=== PATIENT | male | born 1965 | race African-American/Black ===

== ENCOUNTER 2016-09-20 17:42 | Emergency (ER) | payer MEDICAID ==
[~2016-09-20] VITALS: Ht 167.6 cm; Wt 104.3 kg
[~2016-09-20 17:42] MED LIST: ALBU0.08 NEB; ALBU6.7H INH; AMLO5TAB2 PO; BLOOD GLUCOSE M1 KIT; BLOOD GLUCOSE T1 TES; CARV25TA PO; ENAL20TA PO; FURO40TA PO; HYDR-3583 PO; INFL1INJ54 IM; INFL1INJ56 IM; LANCETS1 MI1; LEVO25TA4 PO; METF1000 PO; NICO21DI2 T-DERMAL; NITR50VP SL; ORPH100T99 PO; PNEU25IN IM; PRAV80TA2 PO; PROZ20CA11 PO; SERO300T PO; SPIR25TA PO; SPIRCAP INH
[2016-09-20 17:46] VITALS: BP 140/91; PULSE 71; RESP 16; TEMP 97.8; O2SAT 98
[2016-09-20] MEDS ORDERED: CLINDAMYCIN 150 MG CAP PO ONE (18:00)
[2016-09-20] MEDS ORDERED: IBUPROFEN 800 MG TAB PO ONE (18:00)
--- NOTE | 2016-09-20 18:08 | PD ---
HPI Chief Complaint: Laceration/Skin Injury Time Seen by Provider: 18:02 Travel History International Travel<30 days: No Contact w/Intl Traveler<30days: No Traveled to known affect area: No History of Present Illness HPI 51-year-old male presents the emergency Department with laceration to the proximal right index finger from coffee cup last evening. Patient states he had no significant pain and full range of motion at the beginning, but over the last 24 hours he's had increasing pain and swelling at the proximal right index. Patient denies fever, chills, or other symptoms. Patient is up-to-date on his tetanus 2 years ago. He has normal sensation distal to the wound at this time. Patient now has decreased extension secondary to pain. He has no known drug allergies. PFSH Past Medical History Hx Anticoagulant Therapy: No Blood Disorders: No Bipolar Disorder: Yes Anxiety: Yes Depression: Yes Heart Rhythm Problems: No Cancer: No Cardiac Catheterization: Yes (X3) Cardiomyopathy: Yes Cardiovascular Problems: Yes (OK, HTN, CHOL) High Cholesterol: Yes Chest Pain: Yes Congestive Heart Failure: Yes COPD: Yes Coronary Artery Disease: Yes Diabetes: Yes Diminished Hearing: No Endocrine: No Gastrointestinal Disorders: No GERD: Yes Genitourinary: No Hypertension: Yes Immune Disorder: No Implanted Vascular Access Dvce: Yes (DEFIB) Musculoskeletal: No Neurologic: No Psychiatric: Yes (SCHIZOPHRENIA) Reproductive: No Respiratory: Yes (COPD) Immunizations Current: Yes Myocardial Infarction: Yes Schizophrenia: Yes Thyroid Disease: No Past Surgical History Abdominal Surgery: Yes (appendectomy) Appendectomy: Yes Body Medical Devices: cardiac stents Cardiac Surgery: Yes Coronary Artery Bypass Graft: Yes (3 stents) Coronary Stent: Yes (3 STENTS) Ear Surgery: No Endocrine Surgery: No Eye Surgery: No Genitourinary Surgery: No Gynecologic Surgery: No Neurologic Surgery: No Oral Surgery: No Thoracic Surgery: No Other Surgery: Yes (see hx) Social History Alcohol Use: Yes (SOCIAL) Tobacco Use: Yes Substance Use: Yes (cocaine) Allergies-Medications (Allergen,Severity, Reaction): Coded Allergies: No Known Allergies (Verified , 09/20/16) Reported Meds & Prescriptions Reported Meds & Active Scripts Active Ibuprofen 800 Mg Tab 800 Mg PO Q8H PRN Clindamycin (Clindamycin HCl) 150 Mg Cap 300 Mg PO Q6H 7 Days Metformin (Metformin HCl) 1,000 Mg Tab 1,000 Mg PO BIDPC With meals Amlodipine (Amlodipine Besylate) 5 Mg Tab 5 Mg PO DAILY Hydrocodone-Acetaminophen 10-325 mg Tab 1 Tab PO Q6H PRN Pravastatin 80 Mg Tab 80 Mg PO DAILY Lancets 1 Mis Mis 1 Ea .ROUTE DIRECTED Blood Glucose Monitoring W/Device (Device) 1 Kit Kit 1 Kit .ROUTE DIRECTED Brand, as per patient's insurance. Fluarix Quadrivalent Inj (Influenza Virus Vaccine Quadrivalent Inj) 0.5 Ml Syr 0.5 Ml IM .ONCE Blood Glucose Test Strips 1 Yvette Yvette 1 Ea .ROUTE DIRECTED Spiriva Handihaler (Tiotropium Inh) 18 Mcg Cap 18 Mcg INH DAILY 1 capsule = 18 mcg Reported Orphenadrine CR (Orphenadrine Citrate) 100 Mg Tab 100 Mg PO BID Levothyroxine (Levothyroxine Sodium) 25 Mcg Tab 25 Mcg PO DAILY Prozac (Fluoxetine HCl) 20 Mg Cap 20 Mg PO DAILY Enalapril (Enalapril Maleate) 20 Mg Tab 20 Mg PO DAILY Carvedilol 25 Mg Tab 25 Mg PO BID Spironolactone 25 Mg Tab 25 Mg PO DAILY Seroquel (Quetiapine Fumarate) 300 Mg Tab 300 Mg PO HS Nitroglycerin 5 Mg/Ml Inj 0.4 Mg SL DIRECTED Nicotine Patch (Nicotine) 21 Mg/24 Hr Patch 21 Mg T-DERMAL DAILY Furosemide 40 Mg Tab 40 Mg PO BID Proventil Hfa 6.7 GM Inh (Albuterol Sulfate) 90 Mcg/Act Aer 1 Puff INH Q4H PRN Albuterol Neb (Albuterol Sulfate) 2.5 Mg/3 Ml Neb 2.5 Mg NEB QID NEB Review of Systems Except as stated in HPI: all other systems reviewed are Neg General / Constitutional: No: Fever Eyes: No: Visual changes HENT: No: Headaches Cardiovascular: No: Chest Pain or Discomfort Respiratory: No: Shortness of Breath Gastrointestinal: No: Abdominal Pain Genitourinary: No: Dysuria Musculoskeletal: No: Pain Skin: No Rash Neurologic: No: Weakness Psychiatric: No: Depression Endocrine: No: Polydipsia Hematologic/Lymphatic: No: Easy Bruising Physical Exam Narrative GENERAL: Patient appears no acute distress. SKIN: Warm and dry. Normal color. Normal turgor. Patient has apparent superficial V-shaped laceration to the dorsal right rocks while index finger area there is small amount of oozing capillary bleeding, and localized swelling and tenderness. No obvious erythema or cellulitis. HEAD: Atraumatic. Normocephalic. EYES: Pupils equal and round. No scleral icterus. No injection or drainage. ENT: No nasal bleeding or discharge. Mucous membranes pink and moist. Pharynx is clear. Airway is patent. NECK: Trachea midline. No JVD. CARDIOVASCULAR: Regular rate and rhythm. RESPIRATORY: No accessory muscle use. Clear to auscultation. Breath sounds equal bilaterally. GASTROINTESTINAL: Abdomen soft, non-tender, nondistended. Hepatic and splenic margins not palpable. MUSCULOSKELETAL: Extremities without clubbing, cyanosis, or edema. No obvious deformities. Extension is limited secondary to pain but I do not suspect a tendon laceration or injury. NEUROLOGICAL: Awake and alert. No obvious cranial nerve deficits. Motor grossly within normal limits. Five out of 5 muscle strength in the arms and legs. Normal speech. PSYCHIATRIC: Appropriate mood and affect; insight and judgment normal. Data Data Last Documented VS Vital Signs Date Time Temp Pulse Resp B/P Pulse Ox O2 Delivery O2 Flow Rate FiO2 09/20/16 17:46 97.8 71 16 140/91 98 Orders Hand, Complete ([id number]) (09/20/16 18:00) Ice/Cold Pack (09/20/16 18:00) Clindamycin (Cleocin) (09/20/16 18:00) Ibuprofen (Motrin) (09/20/16 18:00) Cefazolin Inj (Ancef Inj) (09/20/16 19:00) MDM Medical Decision Making Medical Screen Exam Complete: Yes Emergency Medical Condition: Yes Differential Diagnosis Laceration. Cellulitis. Possible tendon injury. Narrative Course Patient is medically stable at time of exam. X-ray of the right hand is ordered. Patient is given 1 g of Ancef IM. Patient is given 300 mg clindamycin by mouth. Patient is given 800 mg ibuprofen by mouth. X-ray shows no acute process. Wound site was cleansed and dressed by ED staff. Splint was placed to maintain the finger in a position of comfort. Patient will be continued on clindamycin 300 mg 4 times a day for 7 days. Patient is given ibuprofen 800 mg 3 times daily with food #30. Patient should follow with his primary care physician in the next 2 days, and leave the dressing and splint place until that time. Patient can return to emergency department if worsening symptoms develop or if he cannot get into with his primary care physician. Patient is given the name of Dr. Kramer the hand surgeon on-call today. Diagnosis Primary Impression: Laceration of right index finger with complication Additional Impression: Cellulitis Qualified Code: L03.011 - Cellulitis of finger of right hand Referrals: Mally Sanches MD Primary Care Physician 2 days Patient Instructions: Cellulitis (ED), General Instructions, Laceration Without Closure (ED) Additional Instructions: Patient is given 1 g of Ancef IM. Patient is given 300 mg clindamycin by mouth. Patient is given 800 mg ibuprofen by mouth. X-ray shows no acute process. Wound site was cleansed and dressed by ED staff. Splint was placed to maintain the finger in a position of comfort. Patient will be continued on clindamycin 300 mg 4 times a day for 7 days. Patient is given ibuprofen 800 mg 3 times daily with food #30. Patient should follow with his primary care physician in the next 2 days, and leave the dressing and splint place until that time. Patient can return to emergency department if worsening symptoms develop or if he cannot get into with his primary care physician. Patient is given the name of Dr. Kramer the hand surgeon on-call today. Med/Other Pt SpecificInfo: Prescription(s) given Scripts Ibuprofen 800 Mg [id number] Mg PO Q8H PRN (Pain/Inflammation) #30 TAB Prov:Louise Red DO 09/20/16 Clindamycin 150 Mg [id number] Mg PO Q6H 7 Days Prov:Louise Red DO 09/20/16 Disposition: 01 DISCHARGE HOME Condition: Stable Herminio Loredo Sep 20, 2016 18:08
--- NOTE | 2016-09-20 18:26 | RADHPO ---
EXAM DATE/TIME: 09/20/2016 18:13 [facility] COMPARISON: No previous studies available for comparison. INDICATIONS : Laceration right 2nd proximal phalangeal joint. MEDICAL HISTORY : None. SURGICAL HISTORY : None. ENCOUNTER: Initial ACUITY: 1 day PAIN SCORE: 9/10 LOCATION: Right 2nd digit proximal FINDINGS: Three view examination of the right hand demonstrates no soft tissue swelling, dislocation, or fractu re. The carpal bones appear intact. The interphalangeal and metacarpophalangeal joints are intact. Bony mineralization is normal. CONCLUSION: No acute disease. Pierce Birch MD on September 20, 2016 at 18:24 Board Certified Radiologist. This report was verified electronically.
[2016-09-20] MEDS ORDERED: CLIN1CAP5 PO (18:41)
[2016-09-20] MEDS ORDERED: IBUP800T23 PO (18:41)
[2016-09-20] MEDS ORDERED: ceFAZolin INJ 1,000 MG VIAL IM ONE (19:00)
[2016-09-24] MEDS ORDERED: HYDR-3583 PO (11:37)
[2016-10-20] MEDS ORDERED: HYDR-3583 PO (11:22)
[2016-11-05] MEDS ORDERED: SPIRCAP INH (13:18)
[2016-11-12] MEDS ORDERED: TRAZ50TA12 PO (09:21)
[2016-11-12] MEDS ORDERED: ASPI81TA11 PO (09:22)
[2016-11-19] MEDS ORDERED: HYDR-3583 PO (10:06)
== END 2016-09-20 19:06 | disposition home or self-care (01) ==
LOC: PHEFT 17:42
DX: S61.210A Laceration without foreign body of right index finger without damage to nail, initial encounter (principal); L03.011 Cellulitis of right finger; I10 Essential (primary) hypertension; E11.9 Type 2 diabetes mellitus without complications; Z72.0 Tobacco use; F14.90 Cocaine use, unspecified, uncomplicated; W25.XXXA Contact with sharp glass, initial encounter
CPT/HCPCS: 29130; 73130; 96372; 99283; J0690

== ENCOUNTER 2017-02-03 20:16 | Emergency (ER) | payer OTHER, MEDICAID ==
[~2017-02-03] VITALS: Ht 167.6 cm; Wt 108.3 kg
[~2017-02-03 20:16] MED LIST changes: +ASPI81TA11 PO; +IBUP800T23 PO; -LEVO25TA4 PO; -SPIR25TA PO; +TRAZ50TA12 PO; +VARE1PAK3 PO
[2017-02-03 20:20] VITALS: BP 127/83; PULSE 73; RESP 18; TEMP 98.4
[2017-02-03] MEDS ORDERED: CYCLOBENZAPRINE HCL 10 MG TAB PO ONE (21:45)
[2017-02-03] MEDS ORDERED: KETOROLAC TROMETHAMINE 60 MG/2 ML (IM) VIAL IM ONE (21:45)
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
[2017-02-03 23:03] VITALS: RESP 18
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
[2017-02-11] MEDS ORDERED: VARE1PAK5 PO (13:41)
[2017-02-18] MEDS ORDERED: HYDR-3583 PO (12:21)
[2017-03-18] MEDS ORDERED: HYDR-3583 PO (13:56)
== END 2017-02-03 23:50 | disposition home or self-care (01) ==
LOC: PHEFT 20:16
DX: T14.8 Other injury of unspecified body region (principal); M54.2 Cervicalgia; F17.210 Nicotine dependence, cigarettes, uncomplicated; I42.9 Cardiomyopathy, unspecified; I50.9 Heart failure, unspecified; I11.0 Hypertensive heart disease with heart failure; J44.9 Chronic obstructive pulmonary disease, unspecified; I25.10 Atherosclerotic heart disease of native coronary artery without angina pectoris; E11.9 Type 2 diabetes mellitus without complications; I25.2 Old myocardial infarction; Z79.01 Long term (current) use of anticoagulants; V43.62XA Car passenger injured in collision with other type car in traffic accident, initial encounter; Y92.410 Unspecified street and highway as the place of occurrence of the external cause; Y99.8 Other external cause status
CPT/HCPCS: 71101; 72125; 96372; 99285; J1885; L0150

== ENCOUNTER 2017-05-04 15:10 | Emergency (ER) | payer OTHER, MEDICAID ==
[~2017-05-04] VITALS: Ht 167.6 cm; Wt 72.0 kg
[~2017-05-04 15:10] MED LIST changes: -ASPI81TA11 PO; +ASPI81TA23 PO; -BLOOD GLUCOSE M1 KIT; -BLOOD GLUCOSE T1 TES; -IBUP800T23 PO; -INFL1INJ56 IM; -LANCETS1 MI1; -NICO21DI2 T-DERMAL; -ORPH100T99 PO; -VARE1PAK3 PO; +VARE1PAK5 PO
[2017-05-04 15:16] VITALS: BP 123/73; PULSE 74; RESP 16; TEMP 97.5; O2SAT 98
[2017-05-04] MEDS ORDERED: ACETAMINOPHEN/HYDROcodone 325 MG/7.5 MG TAB PO ONE (15:30)
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
[2017-05-04] MEDS ORDERED: ROBA500T PO (16:10)
[2017-05-04 16:23] VITALS: RESP 18
[2017-05-12] MEDS ORDERED: METF1000 PO (08:48)
[2017-05-12] MEDS ORDERED: ASPI81TA23 PO (08:48)
[2017-05-12] MEDS ORDERED: AMLO5TAB2 PO (08:48)
[2017-05-12] MEDS ORDERED: SPIRCAP INH (08:48)
[2017-05-12] MEDS ORDERED: VARE1PAK5 PO (08:48)
[2017-05-12] MEDS ORDERED: PRAV80TA2 PO (08:48)
[2017-05-12] MEDS ORDERED: FLU60SYR13 IM (08:50)
[2017-05-18] MEDS ORDERED: HYDR-3583 PO (15:40)
== END 2017-05-04 16:29 | disposition home or self-care (01) ==
LOC: PHEFT 15:10
DX: M62.838 Other muscle spasm (principal); G89.29 Other chronic pain; M54.5 Low back pain; I42.9 Cardiomyopathy, unspecified; J44.9 Chronic obstructive pulmonary disease, unspecified; E11.9 Type 2 diabetes mellitus without complications; I11.0 Hypertensive heart disease with heart failure; E78.00 Pure hypercholesterolemia, unspecified; Z72.0 Tobacco use; V49.49XA Driver injured in collision with other motor vehicles in traffic accident, initial encounter
CPT/HCPCS: 72100; 99283

== ENCOUNTER 2017-05-25 20:04 | Emergency (ER) | payer MEDICAID ==
[~2017-05-25] VITALS: Ht 167.6 cm; Wt 116.1 kg
[~2017-05-25 20:04] MED LIST changes: +ROBA500T PO
[2017-05-25 20:55] VITALS: BP 156/79; PULSE 72; RESP 24; TEMP 98.7; O2SAT 96
[2017-05-25] MEDS ORDERED: SODIUM CHLOR 0.9% 1000 ML INJ 1,000 ML IV SCH (21:46)
--- NOTE | 2017-05-25 21:54 | PD ---
HPI Chief Complaint: Pain: Acute or Chronic Time Seen by Provider: 21:41 Travel History International Travel<30 days: No Contact w/Intl Traveler<30days: No Traveled to known affect area: No History of Present Illness HPI Patient is a 52-year-old male with history of chronic low back pain, presents to the emergency room complaints of left-sided rib and back pain. Patient reports that 2 days ago, he was walking down 3 steps in front of his house. Patient reports that his back cramped up and he went into a spasm. Reports that he fell down the 3 steps and landed onto the driveway onto the left side of his back. Denies loc, denies trauma to head/neck. Patient reports severe pain to his left ribs/low back since this fall. He is on chronic opioids (oxycodones) for treatment of chronic pain. Patient denies any shortness of breath at this time. Denies any chest pain. Denies abdominal pain, nausea or vomiting. PFSH Past Medical History Hx Anticoagulant Therapy: No Blood Disorders: No Bipolar Disorder: Yes Anxiety: Yes Depression: Yes Heart Rhythm Problems: No Cancer: No Cardiac Catheterization: Yes (X's 3) Cardiomyopathy: Yes Cardiovascular Problems: Yes (UT, HTN, CHOL, STENTS) High Cholesterol: Yes Chest Pain: Yes Congestive Heart Failure: Yes COPD: Yes Coronary Artery Disease: Yes Diabetes: Yes Patient Takes Glucophage: Yes Diminished Hearing: No Endocrine: No Gastrointestinal Disorders: No GERD: Yes Genitourinary: No Hypertension: Yes Immune Disorder: No Implanted Vascular Access Dvce: Yes (Defib.) Musculoskeletal: No Neurologic: No Psychiatric: Yes (Schizophrenia ) Reproductive: No Respiratory: Yes (COPD) Immunizations Current: Yes Myocardial Infarction: Yes Schizophrenia: Yes Thyroid Disease: No Tetanus Vaccination: < 5 Years Influenza Vaccination: Yes Past Surgical History Abdominal Surgery: Yes (appendectomy) Appendectomy: Yes Body Medical Devices: Cardiac stents Cardiac Surgery: Yes Coronary Artery Bypass Graft: Yes Coronary Stent: Yes (3) Ear Surgery: No Endocrine Surgery: No Eye Surgery: No Genitourinary Surgery: No Gynecologic Surgery: No Neurologic Surgery: No Oral Surgery: No Thoracic Surgery: No Other Surgery: Yes (see hx) Social History Alcohol Use: Yes (Social) Tobacco Use: Yes (1/2 PPD) Substance Use: Yes (H/O cocaine, denies today ) Allergies-Medications (Allergen,Severity, Reaction): Coded Allergies: No Known Allergies (Verified Adverse Reaction, Unknown, 05/25/17) Reported Meds & Prescriptions Reported Meds & Active Scripts Active Hydrocodone-Acetaminophen 10-325 mg Tab 1 Tab PO Q6H PRN Chantix Continuing Month Denzel (Varenicline) 1 Mg Denzel 1 Mg PO BIDPC Spiriva Handihaler (Tiotropium Inh) 18 Mcg Cap 18 Mcg INH DAILY 1 capsule = 18 mcg Metformin (Metformin HCl) 1,000 Mg Tab 1,000 Mg PO BIDPC With meals Pravastatin 80 Mg Tab 80 Mg PO DAILY Amlodipine (Amlodipine Besylate) 5 Mg Tab 5 Mg PO DAILY Aspirin EC (Aspirin) 81 Mg Tabdr 81 Mg PO DAILY Robaxin (Methocarbamol) 500 Mg Tab 500 Mg PO TID 3 Days Reported Trazodone (Trazodone HCl) 50 Mg Tab 50 Mg PO HS Prozac (Fluoxetine HCl) 20 Mg Cap 20 Mg PO DAILY Enalapril (Enalapril Maleate) 20 Mg Tab 20 Mg PO DAILY Carvedilol 25 Mg Tab 25 Mg PO BID Seroquel (Quetiapine Fumarate) 300 Mg Tab 300 Mg PO HS Nitroglycerin 5 Mg/Ml Inj 0.4 Mg SL DIRECTED Furosemide 40 Mg Tab 40 Mg PO BID Proventil Hfa 6.7 GM Inh (Albuterol Sulfate) 90 Mcg/Act Aer 1 Puff INH Q4H PRN Albuterol Neb (Albuterol Sulfate) 2.5 Mg/3 Ml Neb 2.5 Mg NEB QID NEB Review of Systems General / Constitutional: No: Fever, Chills Eyes: No: Visual changes HENT: No: Headaches Cardiovascular: Positive: Other (rib pain), No: Chest Pain or Discomfort Respiratory: No: Shortness of Breath Gastrointestinal: No: Abdominal Pain Genitourinary: No: Dysuria Musculoskeletal: Positive: Pain (back pain) Skin: No Rash Neurologic: No: Weakness Psychiatric: No: Depression Endocrine: No: Polydipsia Hematologic/Lymphatic: No: Easy Bruising Physical Exam Narrative GENERAL: moderate distress SKIN: Focused skin assessment warm/dry. HEAD: Atraumatic. Normocephalic. EYES: Pupils equal and round. No scleral icterus. No injection or drainage. ENT: No nasal bleeding or discharge. Mucous membranes pink and moist. NECK: Trachea midline. No JVD. CARDIOVASCULAR: Regular rate and rhythm. No murmur appreciated. Patient with left sided rib tenderness on exam RESPIRATORY: No accessory muscle use. Clear to auscultation. Breath sounds equal bilaterally. GASTROINTESTINAL: Abdomen soft, non-tender, nondistended. Hepatic and splenic margins not palpable. MUSCULOSKELETAL: No obvious deformities. No clubbing. No cyanosis. No edema. Patient with diffuse paraspinal tenderness to mid thoracic and lumbar spine NEUROLOGICAL: Awake and alert. No obvious cranial nerve deficits. Motor grossly within normal limits. Normal speech. PSYCHIATRIC: Anxious mood and affect; insight and judgment normal. Data Data Last Documented VS Vital Signs Date Time Temp Pulse Resp B/P (MAP) Pulse Ox O2 Delivery O2 Flow Rate FiO2 05/25/17 21:45 18 05/25/17 20:55 98.7 72 156/79 (104) 96 Orders Orders Basic Metabolic Panel (Bmp) (05/25/17 21:46) Complete Blood Count With Diff (05/25/17 21:46) Prothrombin Time / Inr (Pt) (05/25/17 21:46) Act Partial Throm Time (Ptt) (05/25/17 21:46) Ct Abd/Pel W Iv Contrast(Rout) (05/25/17 21:46) Ct Thorax/ Chest W Iv Contrast (05/25/17 21:46) Ct Thor Spine W Iv Contrast (05/25/17 21:46) Ct Lumb Spine W Iv Contrast (05/25/17 21:46) Iv Access Insert/Monitor (05/25/17 21:46) Ecg Monitoring (05/25/17 21:46) Sodium Chlor 0.9% 1000 Ml Inj (Ns 1000 M (05/25/17 21:46) Morphine Inj (Morphine Inj) (05/25/17 22:00) Morphine Inj (Morphine Inj) (05/25/17 22:00) MDM Medical Decision Making Medical Screen Exam Complete: Yes Emergency Medical Condition: Yes Medical Record Reviewed: Yes Interpretation(s) Vital Signs Date Time Temp Pulse Resp B/P (MAP) Pulse Ox O2 Delivery O2 Flow Rate FiO2 05/25/17 21:45 18 05/25/17 20:55 98.7 72 24 156/79 (104) 96 Differential Diagnosis Rib fracture, pneumothorax, spinal fracture Narrative Course 52-year-old male who presents to emergency room with complaints of left-sided rib pain, back pain after a fall 2 days ago. Patient reports that he tried taking his oxycodone with no relief of symptoms. Patient reports that he has pain with movement and pain with taking deep breaths. No injury to his head/ neck at this time. Denies chest pain at this time as well. During the course of the patients emergency department visit, the patients history, examination, and differential diagnosis were reviewed with the patient. The patient was placed on a color television console monitor with oximetry and frequent blood pressure monitoring. The patient had an IV access obtained and blood work sent for analysis. The patient was initially provided IVF as well as IV morphine The patients laboratory studies were reviewed and remarkable for [-]. Radiology studies were reviewed and remarkable for [-] Kayli Woods DO May 25, 2017 21:54
[2017-05-25] MEDS ORDERED: MORPHINE SULFATE 2 MG/ML INJ IV PUSH ONE ×2 (22:00)
[2017-05-25 22:36] LABS: AUTOMATED NEUTROPHIL # 10.9 TH/MM3 (1.8-7.7); BASOPHIL # 0.1 TH/MM3 (0-0.2); BASOPHIL % 0.4 % (0.0-2.0); EOSINOPHIL # 0.2 TH/MM3 (0-0.4); EOSINOPHIL % 1.9 % (0.0-4.0); HEMATOCRIT 43.7 % (39.0-51.0); HEMOGLOBIN 14.3 GM/DL (13.0-17.0); LYMPH % 9.8 % (9.0-44.0); LYMPHOCYTE # 1.3 TH/MM3 (1.0-4.8); MEAN CELL VOLUME 85.5 FL (80.0-100.0); MEAN CORPUSCULAR HEMOGLOBIN 27.9 PG (27.0-34.0); MEAN CORPUSCULAR HGB CONC 32.7 % (32.0-36.0); MONOCYTE # 0.4 TH/MM3 (0-0.9); NEUT % 84.9 % (16.0-70.0); PLATELET COUNT 248 TH/MM3 (150-450); RED BLOOD COUNT 5.11 MIL/MM3 (4.50-5.90); RED CELL DISTRIBUTION WIDTH 13.4 % (11.6-17.2); WHITE BLOOD COUNT 12.9 TH/MM3 (4.0-11.0)
[2017-05-25 22:42] VITALS: BP 179/100; PULSE 70; RESP 18; O2SAT 96
[2017-05-25 22:48] LABS: CALCIUM 9.5 MG/DL (8.5-10.1)
[2017-05-25 22:49] LABS: BICARBONATE 29.9 MEQ/L (21.0-32.0); PROTHROMBIN TIME - PATIENT 10.1 SEC (9.8-11.6)
[2017-05-25] MEDS ORDERED: IOHEXOL 350 MG/ML 10 ML VIAL (for RAD DIAG) IVCONTRAST ONE (23:45)
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
[2017-05-26 00:54] VITALS: BP 161/86; PULSE 74; RESP 18; O2SAT 96
[2017-05-26] MEDS ORDERED: PERC5TAB12 PO (00:56)
--- NOTE | 2017-05-26 00:57 | PD ---
Data Data Last Documented VS Vital Signs Date Time Temp Pulse Resp B/P (MAP) Pulse Ox O2 Delivery O2 Flow Rate FiO2 05/25/17 22:42 70 18 179/100 (126) 96 Room Air 05/25/17 20:55 98.7 Orders Orders Basic Metabolic Panel (Bmp) (05/25/17 21:46) Complete Blood Count With Diff (05/25/17 21:46) Prothrombin Time / Inr (Pt) (05/25/17 21:46) Act Partial Throm Time (Ptt) (05/25/17 21:46) Ct Abd/Pel W Iv Contrast(Rout) (05/25/17 21:46) Ct Thorax/ Chest W Iv Contrast (05/25/17 21:46) Ct Thor Spine W Iv Contrast (05/25/17 21:46) Ct Lumb Spine W Iv Contrast (05/25/17 21:46) Iv Access Insert/Monitor (05/25/17 21:46) Ecg Monitoring (05/25/17 21:46) Sodium Chlor 0.9% 1000 Ml Inj (Ns 1000 M (05/25/17 21:46) Morphine Inj (Morphine Inj) (05/25/17 22:00) Morphine Inj (Morphine Inj) (05/25/17 22:00) Iohexol 350 Inj (Omnipaque 350 Inj) (05/25/17 23:45) Labs Laboratory Tests Test 05/25/17 22:30 White Blood Count 12.9 TH/MM3 Red Blood Count 5.11 MIL/MM3 Hemoglobin 14.3 GM/DL Hematocrit 43.7 % Mean Corpuscular Volume 85.5 FL Mean Corpuscular Hemoglobin 27.9 PG Mean Corpuscular Hemoglobin Concent 32.7 % Red Cell Distribution Width 13.4 % Platelet Count 248 TH/MM3 Mean Platelet Volume 8.0 FL Neutrophils (%) (Auto) 84.9 % Lymphocytes (%) (Auto) 9.8 % Monocytes (%) (Auto) 3.0 % Eosinophils (%) (Auto) 1.9 % Basophils (%) (Auto) 0.4 % Neutrophils # (Auto) 10.9 TH/MM3 Lymphocytes # (Auto) 1.3 TH/MM3 Monocytes # (Auto) 0.4 TH/MM3 Eosinophils # (Auto) 0.2 TH/MM3 Basophils # (Auto) 0.1 TH/MM3 CBC Comment DIFF FINAL Differential Comment Prothrombin Time 10.1 SEC Prothromb Time International Ratio 1.0 RATIO Activated Partial Thromboplast Time 31.6 SEC Blood Urea Nitrogen 12 MG/DL Creatinine 1.00 MG/DL Random Glucose 166 MG/DL Calcium Level 9.5 MG/DL Sodium Level 134 MEQ/L Potassium Level 4.3 MEQ/L Chloride Level 99 MEQ/L Carbon Dioxide Level 29.9 MEQ/L Anion Gap 5 MEQ/L Estimat Glomerular Filtration Rate 94 ML/MIN [facility] Supervised Visit with IGNACIA: No Interpretation(s) mild leukocytosis electrolytes are reassuring coags are normal Last 24 hours Impressions Thoracic Spine CT 05/25/172145 Signed Impressions: Service Date/Time: Thursday, May 25, 2017 23:40 - CONCLUSION: Slight degenerative changes without any significant compromise to the thecal sac or the exiting nerve roots. Vern Bernal MD Lumbar Spine CT 05/25/172145 Signed Impressions: Service Date/Time: Thursday, May 25, 2017 23:40 - CONCLUSION: Minimal disc bulge at L3-4 and L4-5 without any significant compromise to the thecal sac or the exiting nerve roots. Vern Bernal MD Chest CT 05/25/172145 Signed Impressions: Service Date/Time: Thursday, May 25, 2017 23:40 - CONCLUSION: 1. Right eighth rib fracture. 2. Slight bibasilar atelectasis and/or infiltrate is seen. Vern Bernal MD Abdomen/Pelvis CT 05/25/172145 Signed Impressions: Service Date/Time: Thursday, May 25, 2017 23:40 - CONCLUSION: 1. Right eighth rib fracture. 2. Nonobstructing right renal stone. Vern Bernal MD Narrative Course This is a 52-year-old male who has a history of chronic back pain who had a fall several days ago and has had severe pain since. CT scans were obtained. He has evidence of an eighth rib fracture with no underlying injury to the lung. I had a conversation with the patient. We will change his hydrocodone to Percocet. He was also given an incentive spirometer. Patient will be discharged home as there are no other evident injuries on CT. Diagnosis Primary Impression: Rib fracture Qualified Codes: S22.31XA - Fracture of one rib, right side, initial encounter for closed fracture Patient Instructions: General Instructions Additional Instruction: If you develop severe chest pain, shortness of breath, sweating, lightheadedness , dizziness or difficulty breathing return to the emergency department immediately. Stopped taking hydrocodone and take Percocet instead. Use your incentive spirometer as instructed. Follow-up with your primary care physician in one week for a checkup. Med/Other Pt SpecificInfo: Prescription(s) given Scripts Oxycodone-Acetaminophen (Percocet) 5-325 mg Tab 1-2 TAB PO Q6H Y for PAIN, #14 TAB 0 Refills Prov: Sahara Burgos MD 05/26/17 Disposition: 01 DISCHARGE HOME Condition: Stable Sahara Burgos MD May 26, 2017 00:56
[2017-05-26] MEDS ORDERED: oxyCODONE/ACETAMINOPHEN 5 MG/325 MG TAB PO ONE (01:00)
[2017-06-01] MEDS ORDERED: OXYC1TAB63 PO (08:53)
[2017-06-01] MEDS ORDERED: NAPR375T4 PO (08:53)
== END 2017-05-26 01:19 | disposition home or self-care (01) ==
LOC: PHED 20:04
DX: S22.31XA Fracture of one rib, right side, initial encounter for closed fracture (principal); M54.5 Low back pain; G89.29 Other chronic pain; I11.0 Hypertensive heart disease with heart failure; J44.9 Chronic obstructive pulmonary disease, unspecified; E11.9 Type 2 diabetes mellitus without complications; W10.8XXA Fall (on) (from) other stairs and steps, initial encounter; Y92.007 Garden or yard of unspecified non-institutional (private) residence as the place of occurrence of the external cause; Z72.0 Tobacco use
CPT/HCPCS: 71260; 72129; 72132; 74177; 80048; 85025; 85610; 85730; 94150; 96361; 96374; 96375; 99285; J2270; J7030; Q9967

== ENCOUNTER 2017-10-25 15:58 | Emergency (ER) | payer MEDICAID ==
[~2017-10-25] VITALS: Ht 167.6 cm; Wt 105.5 kg
[~2017-10-25 15:58] MED LIST changes: +NAPR375T4 PO
[2017-10-25 16:03] VITALS: BP 130/80; PULSE 81; RESP 16; RESP 6; TEMP 98.4; O2SAT 97
[2017-10-25] MEDS ORDERED: ORPHENADRINE INJ 60 MG/2 ML AMP IM ONE (18:00)
[2017-10-25] MEDS ORDERED: KETOROLAC TROMETHAMINE 60 MG/2 ML (IM) VIAL IM ONE (18:00)
--- NOTE | 2017-10-25 18:33 | RADRPT ---
EXAM DATE: 10/25/2017 6:23 PM EDT AGE/SEX: 52 years / Male INDICATIONS: Cough and right side chest pain for 3 days. CLINICAL DATA: This is the patient's initial encounter. Patient reports that signs and symptoms have been present for 3 days and indicates a pain score of 10/10. MEDICAL/SURGICAL HISTORY: Congestive heart failure. Hypertension. Gastroesophageal reflux dis ease. Myocardial infarction. Cardiomyopathy. Diabetes. Coronary artery stent. Appendectomy. Pace maker. Cardiac catherization. COMPARISON: [facility] [place], CHEST PA & LAT, 02/23/2013. . FINDINGS: Patchy airspace disease is seen in the right and left lungs, worse in the left base. Pacemaker left c hest. The cardiomediastinal contours are unremarkable. Osseous structures are intact. CONCLUSION: Number airspace disease as described above worse left base. No pneumothorax. Inflammatory process paul pected. Electronically signed by: Brandin Iqbal MD 10/25/2017 6:32 PM EDT
[2017-10-25] MEDS ORDERED: CYCL5TAB PO (18:41)
[2017-10-25] MEDS ORDERED: MELO7.5T27 PO (18:41)
--- NOTE | 2017-10-25 18:41 | PD ---
HPI Chief Complaint: Musculoskeletal Complaint Time Seen by Provider: 17:48 Travel History International Travel<30 days: No Contact w/Intl Traveler<30days: No Traveled to known affect area: No History of Present Illness HPI This is a 52-year-old male who presents to the emergency department with right- sided pain of his chest wall, worse with twisting and moving and bending over, constant, described as a soreness associated with a cough with some clear sputum. He denies any shortness of breath. He denies any injuries or abnormal exercise. He denies any fevers or chills. PFSH Past Medical History Hx Anticoagulant Therapy: No Blood Disorders: No Bipolar Disorder: Yes Anxiety: Yes Depression: Yes Heart Rhythm Problems: No Cancer: No Cardiac Catheterization: Yes (X's 3) Cardiomyopathy: Yes Cardiovascular Problems: Yes (CHF) High Cholesterol: Yes Chest Pain: Yes Congestive Heart Failure: Yes COPD: Yes Coronary Artery Disease: Yes Diabetes: Yes Diminished Hearing: No Endocrine: No Gastrointestinal Disorders: No GERD: Yes Genitourinary: No Hypertension: Yes Immune Disorder: No Implanted Vascular Access Dvce: Yes (Defib.) Musculoskeletal: No Neurologic: No Psychiatric: Yes (Schizophrenia ) Reproductive: No Respiratory: Yes (COPD) Immunizations Current: Yes Myocardial Infarction: Yes Schizophrenia: Yes Thyroid Disease: No Past Surgical History Abdominal Surgery: Yes (appendectomy) Appendectomy: Yes Body Medical Devices: Cardiac stents Cardiac Surgery: Yes Coronary Artery Bypass Graft: Yes Coronary Stent: Yes (3) Ear Surgery: No Endocrine Surgery: No Eye Surgery: No Genitourinary Surgery: No Gynecologic Surgery: No Neurologic Surgery: No Oral Surgery: No Thoracic Surgery: No Other Surgery: Yes (see hx) Social History Alcohol Use: Yes (Social) Tobacco Use: Yes (1/2 PPD) Substance Use: Yes (H/O cocaine, denies today ) Allergies-Medications (Allergen,Severity, Reaction): Coded Allergies: No Known Allergies (Verified Adverse Reaction, Unknown, 10/25/17) Reported Meds & Prescriptions Reported Meds & Active Scripts Active Active Prescriptions or Reported Medications Unobtainable Review of Systems Except as stated in HPI: all other systems reviewed are Neg Physical Exam Narrative GENERAL:Well appearing, no acute distress SKIN: Focused skin assessment warm and dry. HEAD: Atraumatic. Normocephalic. EYES: Pupils equal and round. No injection or drainage. ENT: Moist mucous membranes NECK: Trachea midline. CARDIOVASCULAR: Regular rate and rhythm. No murmur appreciated. RESPIRATORY: Clear to auscultation. Breath sounds equal bilaterally. GASTROINTESTINAL: Abdomen soft, non-tender, nondistended. MUSCULOSKELETAL: Tender to palpation over the right chest wall mostly in the back, pain is reproduced when the patient twists his torso NEUROLOGICAL: Awake and alert. No obvious cranial nerve deficits. Moving all extremities. PSYCHIATRIC: Appropriate mood and affect; insight and judgment normal. Data Data Last Documented VS Vital Signs Date Time Temp Pulse Resp B/P (MAP) Pulse Ox O2 Delivery O2 Flow Rate FiO2 10/25/17 16:03 98.4 81 16 130/80 (97) 97 Orders Orders Chest, Pa & Lat (10/25/17 ) Ketorolac Inj (Toradol Inj) (10/25/17 18:00) Orphenadrine Inj (Norflex Inj) (10/25/17 18:00) MDM Medical Decision Making Medical Screen Exam Complete: Yes Emergency Medical Condition: Yes Interpretation(s) Last 24 hours Impressions Chest X-Ray 10/25/17 0000 Signed Impressions: CONCLUSION: Number airspace disease as described above worse left base. No pneumothorax. In flammatory process suspected. Differential Diagnosis Rib fracture, costochondritis, pulmonary edema, pulmonary embolism, pleural effusion Narrative Course This is a 52-year-old male who presents to the emergency department with right- sided chest wall pain that is musculoskeletal in nature. He is tender on exam and it hurts him when he twists. He has reassuring vital signs. Chest x-ray demonstrates some airspace disease which I suspect is pulmonary edema in the setting of the patient's history congestive heart failure. I think the patient can be treated with anti-inflammatories and muscle relaxers for costochondritis Diagnosis Primary Impression: Costochondritis Patient Instructions: General Instructions Additional Instructions: If you develop severe chest pain, shortness of breath, sweating, lightheadedness , dizziness or difficulty breathing return to the emergency department immediately. Followup with your primary care physician in 2-3 days if your symptoms are not resolved. Med/Other Pt SpecificInfo: Prescription(s) given Scripts Cyclobenzaprine (Flexeril) 5 Mg Tab 5 MG PO TID for Muscle Spasm, #10 TAB 0 Refills Prov: Sahara Burgos MD 10/25/17 Meloxicam (Meloxicam) 7.5 Mg Tab 7.5 MG PO DAILY for Arthritis Pain for 10 Days, #10 TAB 0 Refills Prov: Sahara Burgos MD 10/25/17 Disposition: 01 DISCHARGE HOME Condition: Stable Sahara Burgos MD October 25, 2017 18:41
[2017-10-25 18:50] VITALS: RESP 18
== END 2017-10-25 18:51 | disposition home or self-care (01) ==
LOC: PHED 15:58 → PHEFT 18:51
DX: M94.0 Chondrocostal junction syndrome [Tietze] (principal); I11.0 Hypertensive heart disease with heart failure; I50.9 Heart failure, unspecified; J44.9 Chronic obstructive pulmonary disease, unspecified; E11.9 Type 2 diabetes mellitus without complications; K21.9 Gastro-esophageal reflux disease without esophagitis; F20.9 Schizophrenia, unspecified; F31.9 Bipolar disorder, unspecified; I25.10 Atherosclerotic heart disease of native coronary artery without angina pectoris
CPT/HCPCS: 71046; 96372; 99283; J1885; J2360

== ENCOUNTER 2018-03-13 08:13 | Inpatient (IN) ==
[2018-03-13] MEDS ORDERED: Aspirin 325 MG Tablet PO ONE (08:29)
--- NOTE | 2018-03-13 08:44 | ED ---
HPI General Chief Complaint: Chest Pain Stated Complaint: Chest Pain/SOB Complaint Time Seen by Provider: 03/13/18 08:30 Source: patient Mode of arrival: ambulatory Limitations: no limitations History of Present Illness HPI narrative: 53-year-old male presents through triage with note of chest pain that started last night. He denies taking an aspirin yet today. He states he does not have nitroglycerin at home. He states he follows with a lime burner but he does not know their name. He states he has not had a recent stress test and he thinks his last heart workup was when he had a stent placed 5 years ago. He states he has about 3 or 4 stents total. He denies other associated symptoms other than mild shortness of breath. He states he feels worse when he moves around. He denies other modifying factors. Quality is pressure. Severity is moderate. Related Data Home Medications Medication Instructions Recorded Confirmed Unable to Obtain Home Meds 03/13/18 03/13/18 Allergies Allergy/AdvReac Type Severity Reaction Status Date / Time No Known Allergies Allergy Verified 03/13/18 08:26 Review of Systems ROS: all other systems reviewed are negative [facility] Medical History Medical History Bipolar disorder (Acute) Depression (Acute) Diabetes (Acute) Hypercholesteremia (Acute) Hypertension (Acute) Myocardial infarct (Acute) Schizophrenia (Acute) Social History Social History Substance History: Past History Second Hand Smoke Exposure: No Smoking Status: Current every day smoker Tobacco Type: Cigarettes How Often Do You Have a Drink Containing Alcohol: Monthly or less Recent Travel in [facility] within the Last 8 Weeks: No Recent Out of Country Travel within the Last 8 Weeks: No Immunization History Tetanus Immunization: <5 Years Exam Narrative Exam Narrative: GENERAL: 53 y/o male in no apparent distress SKIN: Focused skin assessment warm/dry. HEAD: Atraumatic. Normocephalic. EYES: Pupils equal and round. No scleral icterus. No injection or drainage. ENT: No nasal bleeding or discharge. Mucous membranes pink and moist. NECK: Trachea midline. No JVD. CARDIOVASCULAR: Regular rate and rhythm. RESPIRATORY: No accessory muscle use. Clear to auscultation. Breath sounds equal bilaterally. GASTROINTESTINAL: Abdomen soft, non-tender, nondistended. MUSCULOSKELETAL: No obvious deformities. No clubbing. No cyanosis. No edema. NEUROLOGICAL: Awake and alert. Motor grossly within normal limits. Normal speech Course Reevaluation(s) Reevaluation #1: Patient's pain is unresolved with Nitropaste and blood pressure is still high. Nitropaste was switched over to nitroglycerin. Necktie Centralizing Machine Operator was called and heparin drip was initiated and he will be kept n.p.o. as he likely needs a cardiac catheterization. Patient updated and agrees to admission. Reevaluation #2: Patient starting to feel a little bit better. Consultations Consultation #1: Dr. Horta states he will discuss with Dr. Roque about possible cardiac catheterization. Place patient on heparin drip with bolus and keep n.p.o. Consultation #2: Dr. Hall agrees to admission Initial Documented Vital Signs Temperature 98.2 F 03/13/18 08:14 Pulse Rate 95 H 03/13/18 08:14 Respiratory Rate 18 03/13/18 08:14 Blood Pressure 197/105 H 03/13/18 08:14 Pulse Oximetry 95 03/13/18 08:14 Last Documented Vital Signs Temperature 98.2 F 03/13/18 08:14 Pulse Rate 88 03/13/18 11:18 Respiratory Rate 18 03/13/18 11:18 Blood Pressure 160/105 H 03/13/18 11:18 Pulse Oximetry 97 03/13/18 11:18 Critical Care Time Critical Care Time: Yes Total Critical Care Time: 31 Attestation: Aggregate critical care time was 31 minutes. Time to perform other separately billable procedures was not included in the critical care time. My time did not include minutes spent treating any other patients simultaneously or on activities that did not directly contribute to the patient's treatment. The services I provided to this patient were to treat and/or prevent clinically significant deterioration that could result in: [place], I provided critical care services requiring my management, as noted below: Chart data review, documentation time, medication orders and management, vital sign assessments/reviewing monitor data, ordering and reviewing lab tests, ordering and interpreting/reviewing x-rays and diagnostic studies, care of the patient and discussion of the patient with the admitting physicians. Medical Decision Making MDM Narrative Medical decision making narrative: Will check blood work, chest x-ray, EKG and dose with aspirin nitroglycerin and reevaluate Medical Screen Exam Complete: Yes Emergency Medical Condition: Yes Differential Diagnosis Differential Diagnosis: Cardiac, musculoskeletal, gastritis... Lab Data Result diagrams: 03/13/18 08:34 03/13/18 08:34 Lab Results 03/13/18 03/13/18 03/13/18 Range/Units 08:34 08:34 08:34 WBC 10.2 (4.0-11.0) th/mm3 RBC 4.02 L (4.50-5.90) mil/mm3 Hgb 12.1 L (13.0-17.0) gm/dL Hct 35.4 L (39.0-51.0) % MCV 88.1 (80.0-100.0) fL MCH 30.2 (27.0-34.0) pg MCHC 34.3 (32.0-36.0) % RDW 16.8 (11.6-17.2) % Plt Count 240 (150-450) th/mm3 MPV 7.8 (7.0-11.0) fL Neut % (Auto) 74.5 H (16.0-70.0) % Lymph % (Auto) 18.2 (9.0-44.0) % [place] % (Auto) 5.1 (0.0-8.0) % Eos % (Auto) 1.6 (0.0-4.0) % Baso % (Auto) 0.6 (0.0-2.0) % Neut # (Auto) 7.6 (1.8-7.7) th/mm3 Lymph # (Auto) 1.9 (1.0-4.8) th/mm3 [place] # (Auto) 0.5 (0.0-0.9) th/mm3 Eos # (Auto) 0.2 (0.0-0.4) th/mm3 Baso # (Auto) 0.1 (0.0-0.2) th/mm3 WBC Differential . Differential Comment Auto diff final PT 11.4 (9.8-11.6) sec INR 1.1 Ratio APTT 30.2 H (24.3-30.1) sec Sodium 136 (136-145) meq/L Potassium 4.0 (3.5-5.1) meq/L Chloride 102 (98-107) meq/L Carbon Dioxide 25.7 (21.0-32.0) meq/L Anion Gap 8 (5-15) meq/L BUN 10 (7-18) mg/dL Creatinine 1.05 (0.60-1.30) mg/dL Estimated GFR 89 (>89) mL/min Random Glucose 118 H (74-106) mg/dL Calcium 8.8 (8.5-10.1) mg/dL Magnesium 2.1 (1.5-2.5) mg/dL Total Bilirubin 0.9 (0.2-1.0) mg/dL AST 13 L (15-37) U/L ALT 27 (12-78) U/L Alkaline Phosphatase 109 (45-117) U/L Total Creatine Kinase 76 (39-308) U/L Troponin I 0.48 H (0.02-0.05) ng/mL Total Protein 8.3 H (6.4-8.2) g/dL Albumin 3.5 (3.4-5.0) g/dL Imaging Data Radiologist's impression: Chest X-Ray 03/13/18 08:29 CONCLUSION: 1. Cardiomegaly with mild pulmonary vascular congestion. ECG Data EKG Prior to Arrival: No Attestation: I personally reviewed and interpreted this ECG as follows: Prior ECG tracings: available for review Interpretation: EKG shows NSR, no arrhythmias. No significant T-wave inversions. Patient with mild ST elevation V3 similar to prior from 2015 Discharge Plan Discharge Disposition Patient Disposition: 30 Still Patient Discharge Details Diagnosis: Unstable angina pectoris Physicians Team ED Provider: Shaneka Morgan Primary Care Provider: Tanika Otero Attending Provider: Chanda Hall Status ED Status: Admitted Patient
[2018-03-13 08:56] LABS: Baso # (Auto) 0.1 th/mm3 (0.0-0.2); Baso % (Auto) 0.6 % (0.0-2.0); Eos # (Auto) 0.2 th/mm3 (0.0-0.4); Eos % (Auto) 1.6 % (0.0-4.0); Hematocrit 35.4 % (39.0-51.0); Hemoglobin 12.1 gm/dL (13.0-17.0); Lymph # (Auto) 1.9 th/mm3 (1.0-4.8); Lymph % (Auto) 18.2 % (9.0-44.0); Mean Corpuscular HGB Conc 34.3 % (32.0-36.0); Mean Corpuscular Hemoglobin 30.2 pg (27.0-34.0); Mean Corpuscular Volume 88.1 fL (80.0-100.0); Mean Platelet Volume 7.8 fL (7.0-11.0); Mono # (Auto) 0.5 th/mm3 (0.0-0.9); Mono % (Auto) 5.1 % (0.0-8.0); Neut # (Auto) 7.6 th/mm3 (1.8-7.7); Neut % (Auto) 74.5 % (16.0-70.0); Platelet Count 240 th/mm3 (150-450); Red Blood Count 4.02 mil/mm3 (4.50-5.90); Red Cell Distribution Width 16.8 % (11.6-17.2); White Blood Count 10.2 th/mm3 (4.0-11.0)
[2018-03-13 09:11] LABS: Activated Partial Thrombo Time 30.2 sec (24.3-30.1); INR 1.1 Ratio; Prothrombin Time 11.4 sec (9.8-11.6)
--- NOTE | 2018-03-13 09:15 | XR ---
EXAM DATE: 03/13/2018 8:29 AM EDT AGE/SEX: 53 years / Male INDICATIONS: Chest pain and shortness of breath since last night CLINICAL DATA: This is the patient's initial encounter. Patient reports that signs and symptoms have been present for 1 day and indicates a pain score of 8/10. MEDICAL/SURGICAL HISTORY: Cardiovascular disease. Chronic obstructive pulmonary disease. smoke r Coronary artery stent. Pacemaker. COMPARISON: [facility], CHEST PA & LAT, 10/25/2017. . FINDINGS: Mild diffuse interstitial prominence. Cardiac silhouette is enlarged with indistinct central pulmonar y vascularity. Remainder of the exam is unchanged. CONCLUSION: 1. Cardiomegaly with mild pulmonary vascular congestion. Electronically signed by: Josue Ramirez MD 03/13/2018 9:14 AM EDT
[2018-03-13 09:22] LABS: Albumin 3.5 g/dL (3.4-5.0); Anion Gap 8 meq/L (5-15); Aspartate Aminotransferase 13 U/L (15-37); Blood Urea Nitrogen 10 mg/dL (7-18); Calcium 8.8 mg/dL (8.5-10.1); Carbon Dioxide 25.7 meq/L (21.0-32.0); Chloride 102 meq/L (98-107); Glomerular Filtration Rate 89 mL/min (>89); Glucose,Random 118 mg/dL (74-106); Magnesium 2.1 mg/dL (1.5-2.5); Sodium 136 meq/L (136-145)
[2018-03-13 09:23] LABS: Alanine Aminotransferase 27 U/L (12-78)
[2018-03-13 09:26] LABS: Alkaline Phosphatase 109 U/L (45-117); Total Protein 8.3 g/dL (6.4-8.2); Troponin I 0.48 ng/mL (0.02-0.05)
[2018-03-13 09:37] LABS: Creatine Kinase 76 U/L (39-308)
[2018-03-13] MEDS ORDERED: Morphine Inj 4 MG/ML Vial IV.PUSH ONE (09:40)
[2018-03-13] MEDS ORDERED: Nitroglycerin Drip Premix 50 MG/250 ML BOTTLE IV.CONT PRN (09:40)
[2018-03-13] MEDS ORDERED: Heparin 10,000 UNITS/10 ML Vial (for IV use) IV.PUSH STA (10:44)
[2018-03-13] MEDS ORDERED: Heparin Drip 25,000 UNIT/250 ML BAG IV.CONT PRN (10:44)
[2018-03-13] MEDS ORDERED: Acetaminophen 325 MG Tablet PO PRN ×2 (11:21→13:35)
[2018-03-13] MEDS ORDERED: Bisacodyl 10 MG Supp RECTAL PRN (11:21)
--- NOTE | 2018-03-13 12:05 | P.HP ---
History of Present Illness Service: Medicine Primary Care Physician: Tanika Otero MD Chief Complaint: Chest pain History of Present Illness: The patient is a 53 year old male with a history of CAD s/p 4 stents, last in 2013, COPD, cocaine use, hypertension, hyperlipidemia, schizophrenia and bipolar disorder who presents to the ED on 03/13/18 complaining of chest pain. The patient states he was in his usual state of health until last night, when he felt chest pain while at rest. He describes the pain as sharp and pressure, and he says it felt like the last time "I had a heart attack." He tried to sleep through it, but discovered it to be worse in the morning and decided to come to the ED. He also had nausea, vomiting, SOB, and diaphoresis. He states he last used cocaine 4 days ago. In the ED, EKG was unchanged from last in 2014, but troponins were elevated at 0.48. Chest Xray showed cardiomegaly with mild pulmonary congestion. Patient received aspirin, heparin, morphine, oxygen and nitroglycerin in the ED. Patient will be admitted pending cardiac catheterization. Medications: Proventil Furosemide Carvediol Enalipril Prozac Hydrocodone Levothyroxine Seroquel Spirinolactone Past Medical Hx: Substance abuse CAD Cocaine use HTN Hyperlipidemia COPD Bipolar Schizophrenia Surgical Hx: Appendectomy 1992 Drug-eluting stents x4, last in 2013 Defibrillator 2014 Social Hx: 1-2 drinks per month 30 pack year history - current smoker cocaine use, last used 4 days ago Family Hx: Mother - Heart disease - 1999 Father - prostate cancer - 81 years old Sister - MS - 30 years old - Diagnosis (1) Unstable angina pectoris Inpatient Certification: I certify that the inpatient services were ordered in accordance with Medicare regulations governing the order. This includes certification that hospital inpatient services are reasonable and necessary and in the case of services not specified as inpatient-only under 42 CFR 419.22(n), that they are appropriately provided as inpatient services in accordance to with the 2-midnight benchmark under 43 CFR 412.3(e) Estimated Total Length of Stay (Days): 3 Plans for Post Hospital Care: Home Review of Systems All other systems reviewed negative except as stated in HPI [facility] - History History Provided By: Patient - Medical History Medical History: Medical History (Last Reviewed 03/13/18 @ 08:45 by Shaneka Morgan MD) Bipolar disorder Depression Diabetes Hypercholesteremia Hypertension Myocardial infarct Schizophrenia - Social History I have reviewed the patient's Social History: Yes - Tobacco History Second Hand Smoke Exposure: No Tobacco Use In Past 30 Days: Yes Smoking Status: Current every day smoker Tobacco Type: Cigarettes Packs Per Day: 1 Years Smoked: 30 - Alcohol History How Often Do You Have a Drink Containing Alcohol: Monthly or less - Substance Use History Substance History: Active Abuse, Past History - Substance Use Type Crack/Cocaine Type: Cocaine - Travel History Recent Travel in the [place] Within the Last 8 Weeks: No Recent Travel Out of the Country Within the Last 8 Weeks: No - Immunization History Tetanus Immunization: <5 Years Medications and Allergies Active Medications: Active Medications Acetaminophen (Tylenol) 650 mg PO Q4H PRN PRN Reason: Temp > 100.4 Al Hydroxide/Mg Hydroxide (Milk Of Magnesia Liq) 30 ml PO Q12H PRN PRN Reason: Mild Constipation Bisacodyl (Dulcolax Supp) 10 mg RECTAL DAILY PRN PRN Reason: SEVERE CONSITIPATION Nitroglycerin/Dextrose (Nitroglycerin Drip Premix) 50 mg in 250 mls @ 0 mls/hr IV.CONT TITRATE PRN; Protocol PRN Reason: Per Protocol Last Admin: 03/13/18 11:24 Dose: 5 mcg/min, 1.5 mls/hr Heparin Sodium/Dextrose (Heparin/D5w 25,000 U/250 Ml) 25,000 unit in 250 mls @ 0 mls/hr IV.CONT TITRATE PRN; Protocol PRN Reason: Per Protocol Last Admin: 03/13/18 11:25 Dose: 1,000 units/hr, 10 mls/hr Lactulose (Lactulose Liq) 30 ml PO DAILY PRN PRN Reason: SEVERE CONSITIPATION Ondansetron HCl (Zofran Inj) 4 mg IV.PUSH Q6H PRN PRN Reason: NAUSEA OR VOMITING Senna/Docusate Sodium (Yolie-Colace) 1 tab PO BID CLIFF Sennosides (Senokot) 17.2 mg PO Q12H PRN PRN Reason: Moderate Constipation Sodium Chloride (Ns Flush) 2 ml IV.FLUSH UNSCH PRN PRN Reason: FLUSH AFTER USING IV ACCESS Last Admin: 03/13/18 08:43 Dose: 2 ml Allergies Allergy/AdvReac Type Severity Reaction Status Date / Time No Known Allergies Allergy Verified 03/13/18 08:26 Home Medications Medication Instructions Recorded Confirmed Type amlodipine 5 mg PO DAILY 03/13/18 03/13/18 History carvedilol [Coreg] 25 mg PO BID 03/13/18 03/13/18 History enalapril maleate [Vasotec] 20 mg PO BID 03/13/18 03/13/18 History glipizide 10 mg PO DAILY 03/13/18 03/13/18 History hydrocodone-acetaminophen [[place]] 1 tab PO Q6H PRN 03/13/18 03/13/18 History pravastatin 80 mg PO HS 03/13/18 03/13/18 History Exam Vital signs: Vital Signs 03/13/18 08:14 03/13/18 08:33 03/13/18 08:35 Temperature 98.2 F Pulse Rate 95 H 88 Respiratory Rate 18 22 Blood Pressure 197/105 H 176/93 H Pulse Oximetry 95 98 03/13/18 09:42 03/13/18 11:18 Temperature Pulse Rate 86 88 Respiratory Rate 18 18 Blood Pressure 156/92 H 160/105 H Pulse Oximetry 97 97 Intake & Output 03/12/18 03/13/18 03/13/18 18:59 06:59 18:59 Weight 111.13 kg Narrative: GENERAL: 53 year old male in NAD, alert and oriented x 3. SKIN: Warm and dry. HEAD: Atraumatic. Normocephalic. EYES: Pupils equal and round. No scleral icterus. No injection or drainage. ENT: No nasal bleeding or discharge. Mucous membranes pink and moist. NECK: Trachea midline. No JVD. CARDIOVASCULAR: Regular rate and rhythm. RESPIRATORY: No accessory muscle use. Scattered wheezes. Breath sounds equal bilaterally. GASTROINTESTINAL: Abdomen soft, non-tender, nondistended. Hepatic and splenic margins not palpable. MUSCULOSKELETAL: Extremities without clubbing, cyanosis, or edema. No obvious deformities. NEUROLOGICAL: Awake and alert. No obvious cranial nerve deficits. Motor grossly within normal limits. Five out of 5 muscle strength in the arms and legs. Normal speech. PSYCHIATRIC: Appropriate mood and affect; insight and judgment normal. Results - Labs CBC & Chem 7: 03/13/18 08:34 10/15/18 08:34 Labs: Laboratory Results - last 24 hr 03/13/18 03/13/18 03/13/18 08:34 08:34 08:34 WBC 10.2 RBC 4.02 L Hgb 12.1 L Hct 35.4 L MCV 88.1 MCH 30.2 MCHC 34.3 RDW 16.8 Plt Count 240 MPV 7.8 Neut % (Auto) 74.5 H Lymph % (Auto) 18.2 [place] % (Auto) 5.1 Eos % (Auto) 1.6 Baso % (Auto) 0.6 Neut # (Auto) 7.6 Lymph # (Auto) 1.9 [place] # (Auto) 0.5 Eos # (Auto) 0.2 Baso # (Auto) 0.1 WBC Differential . Differential Comment Auto diff final PT 11.4 INR 1.1 APTT 30.2 H Sodium 136 Potassium 4.0 Chloride 102 Carbon Dioxide 25.7 Anion Gap 8 BUN 10 Creatinine 1.05 Estimated GFR 89 Random Glucose 118 H Calcium 8.8 Magnesium 2.1 Total Bilirubin 0.9 AST 13 L ALT 27 Alkaline Phosphatase 109 Total Creatine Kinase 76 Troponin I 0.48 H B-Natriuretic Peptide Total Protein 8.3 H Albumin 3.5 03/13/18 08:34 WBC RBC Hgb Hct MCV MCH MCHC RDW Plt Count MPV Neut % (Auto) Lymph % (Auto) [place] % (Auto) Eos % (Auto) Baso % (Auto) Neut # (Auto) Lymph # (Auto) [place] # (Auto) Eos # (Auto) Baso # (Auto) WBC Differential Differential Comment PT INR APTT Sodium Potassium Chloride Carbon Dioxide Anion Gap BUN Creatinine Estimated GFR Random Glucose Calcium Magnesium Total Bilirubin AST ALT Alkaline Phosphatase Total Creatine Kinase Troponin I B-Natriuretic Peptide 257 H Total Protein Albumin - Imaging Impressions Chest X-Ray 03/13/18 08:29 CONCLUSION: 1. Cardiomegaly with mild pulmonary vascular congestion. Caprini VTE Risk Assessment Caprini Risk Assessment Model: Point Value = 1 Point Value = 2 Point Value = 3 Point Value = 5 Age 41-60 Minor surgery BMI > 25 kg/m2 Swollen legs Varicose veins or History of unexplained or recurrent spontaneous Oral contraceptives or hormone replacement Sepsis (< 1 month) Serious lung disease, including pneumonia (< 1 month) Abnormal pulmonary function Acute myocardial infarction Congestive heart failure (< 1 month) History of inflammatory bowel disease Medical patient at bed rest Age 61-74 Arthroscopic surgery Major open surgery (> 45 min) Laparoscopic surgery (> 45 min) Malignancy Confined to bed (> 72 hours) Immobilizing plaster cast Central venous access Age >= 75 History of VTE Family history of VTE Factor V Leiden Prothrombin [id number] Lupus anticoagulant Anticardiolipin antibodies Elevated serum homocysteine Heparin-induced thrombocytopenia Other congenital or acquired thrombophilia Stroke (< 1 month) Elective arthroplasty Hip, pelvis, or leg fracture Acute spinal cord injury (< 1 month) Prophylaxis Regimen: Total Risk Factor Score Risk Level Prophylaxis Regimen 0-1 Low Early ambulation 2 Moderate Order ONE of the following: *Sequential Compression Device (SCD) *Heparin 5000 units SQ BID 3-4 Higher Order ONE of the following medications: *Heparin 5000 units SQ TID *Enoxaparin/Lovenox 40 mg SQ daily (WT < 150 kg, CrCl > 30 mL/min) *Enoxaparin/Lovenox 30 mg SQ daily (WT < 150 kg, CrCl > 10-29 mL/min) *Enoxaparin/Lovenox 30 mg SQ BID (WT < 150 kg, CrCl > 30 mL/min) AND/OR *Sequential Compression Device (SCD) 5 or more Highest Order ONE of the following medications: *Heparin 5000 units SQ TID (Preferred with Epidurals) *Enoxaparin/Lovenox 40 mg SQ daily (WT < 150 kg, CrCl > 30 mL/min) *Enoxaparin/Lovenox 30 mg SQ daily (WT < 150 kg, CrCl > 10-29 mL/min) *Enoxaparin/Lovenox 30 mg SQ BID (WT < 150 kg, CrCl > 30 mL/min) AND *Sequential Compression Device (SCD) Assessment and Plan - Assessment (1) Unstable angina pectoris Code(s): I20.0 - Unstable angina Status: Acute - Plan Unstable angina pectoris Continue O2, morphine, aspirin, heparin drip Telemetry Consult cardiology - patient will go to cath lab manager NPO Troponin q3hr EKG q3hr COPD Patient on O2 currently, saturating well HTN Monitor, continue enalipril, furosemide, spironolactone Hx of substance abuse Counseled Recent cocaine use 4 days ago Hyperlipidemia Monitor Bipolar disorder Schizophrenia Continue home meds DVT prophylaxis: SCD's, patient on heparin Code Status: Full Discussed Condition With: Patient, ED physician
[2018-03-13] MEDS ORDERED: Atropine Inj 1 MG/ML Vial IV.PUSH PRN (13:35)
[2018-03-13] MEDS ORDERED: Misc Info for Pharmacy OTHER STA ×2 (13:35→14:25)
[2018-03-13] MEDS ORDERED: Heparin 10,000 UNITS/10 ML Vial (for IV use) ONE (13:48)
[2018-03-13] MEDS ORDERED: fentaNYL Citrate Inj 100 MCG/2 ML Ampul ONE (13:48)
--- NOTE | 2018-03-13 13:57 | P.CONCA ---
History of Present Illness Service: Cardiology Consult date: 03/13/18 Reason for Consult: Unstable angina Primary Care Provider: Tanika Otero MD Chief Complaint: Chest pain History of Present Illness: This is a 53-year-old male with history of known coronary disease and prior percutaneous coronary intervention with 4 stents, most recently in 2013, COPD, hypertension, and hyperlipidemia. Patient now presents with symptoms of worsening chest pain. He describes the pain is sharp but similar to his prior heart attack. Cardiac biomarkers were elevated. Electrocardiogram was unremarkable. Patient did state he used cocaine 4 days ago. Patient was having ongoing chest pain we are consulted for consideration of cardiac catheterization. Review of Systems All other systems reviewed negative except as stated in HPI [facility] - History History Provided By: Patient - Medical History Medical History: Medical History (Last Reviewed 03/13/18 @ 08:45 by Shaneka Morgan MD) Bipolar disorder Depression Diabetes Hypercholesteremia Hypertension Myocardial infarct Schizophrenia - Tobacco History Second Hand Smoke Exposure: No Tobacco Use In Past 30 Days: Yes Smoking Status: Current every day smoker Tobacco Type: Cigarettes Packs Per Day: 1 Years Smoked: 30 - Alcohol History How Often Do You Have a Drink Containing Alcohol: Monthly or less - Substance Use History Substance History: Active Abuse, Past History - Substance Use Type Crack/Cocaine Type: Cocaine - Travel History Recent Travel in the [place] Within the Last 8 Weeks: No Recent Travel Out of the Country Within the Last 8 Weeks: No - Immunization History Tetanus Immunization: <5 Years Medications and Allergies Active Medications: Active Medications Acetaminophen (Tylenol) 650 mg PO Q4H PRN PRN Reason: Temp > 100.4 Al Hydroxide/Mg Hydroxide (Milk Of Amie [place]) 30 ml PO Q12H PRN PRN Reason: Mild Constipation Bisacodyl (Dulcolax Supp) 10 mg RECTAL DAILY PRN PRN Reason: SEVERE CONSITIPATION Nitroglycerin/Dextrose (Nitroglycerin Drip Premix) 50 mg in 250 mls @ 0 mls/hr IV.CONT TITRATE PRN; Protocol PRN Reason: Per Protocol Last Titration: 03/13/18 12:00 Dose: 15 mcg/min, 4.5 mls/hr Heparin Sodium/Dextrose (Heparin/D5w 25,000 U/250 Ml) 25,000 unit in 250 mls @ 0 mls/hr IV.CONT TITRATE PRN; Protocol PRN Reason: Per Protocol Last Admin: 03/13/18 11:25 Dose: 1,000 units/hr, 10 mls/hr Lactulose (Lactulose Liq) 30 ml PO DAILY PRN PRN Reason: SEVERE CONSITIPATION Ondansetron HCl (Zofran Inj) 4 mg IV.PUSH Q6H PRN PRN Reason: NAUSEA OR VOMITING Senna/Docusate Sodium (Yolie-Colace) 1 tab PO BID CLIFF Sennosides (Senokot) 17.2 mg PO Q12H PRN PRN Reason: Moderate Constipation Sodium Chloride (Ns Flush) 2 ml IV.FLUSH UNSCH PRN PRN Reason: FLUSH AFTER USING IV ACCESS Last Admin: 03/13/18 08:43 Dose: 2 ml Allergies Allergy/AdvReac Type Severity Reaction Status Date / Time No Known Allergies Allergy Verified 03/13/18 08:26 Home Medications Medication Instructions Recorded Confirmed Type amlodipine 5 mg PO DAILY 03/13/18 03/13/18 History carvedilol [Coreg] 25 mg PO BID 03/13/18 03/13/18 History enalapril maleate [Vasotec] 20 mg PO BID 03/13/18 03/13/18 History glipizide 10 mg PO DAILY 03/13/18 03/13/18 History hydrocodone-acetaminophen [[place]] 1 tab PO Q6H PRN 03/13/18 03/13/18 History pravastatin 80 mg PO HS 03/13/18 03/13/18 History Exam Vital signs: Vital Signs 03/13/18 08:14 03/13/18 08:33 03/13/18 08:35 Temperature 98.2 F Pulse Rate 95 H 88 Respiratory Rate 18 22 Blood Pressure 197/105 H 176/93 H Pulse Oximetry 95 98 03/13/18 09:42 03/13/18 11:18 03/13/18 12:31 Temperature Pulse Rate 86 88 61 Respiratory Rate 18 18 18 Blood Pressure 156/92 H 160/105 H 152/89 H Pulse Oximetry 97 97 98 Intake & Output 03/12/18 03/13/18 03/13/18 18:59 06:59 18:59 Weight 111.13 kg - Constitutional no acute distress - Routine HEENT Exam Eye: Present: EOMI, PERRL ENT: Present: mucous membranes moist - Routine Neck Exam Absent: JVD - Routine Cardiovascular Exam Present: RRR. Absent: murmur - Routine Abdominal Exam Present: soft, normoactive bowel sounds - Routine Extremities Exam Absent: edema - Routine Neurological Exam Present: oriented X3, CN II-XII intact. Absent: sensory deficit, motor deficit Results 03/13/18 08:34 03/13/18 08:34 Cardiac Enzymes 03/13/18 03/13/18 03/13/18 Range/Units 08:34 08:34 12:29 AST 13 L (15-37) U/L Troponin I 0.48 H 0.43 H (0.02-0.05) ng/mL B-Natriuretic Peptide 257 H (0-100) pg/mL Coagulation 03/13/18 03/13/18 Range/Units 08:34 08:34 PT 11.4 (9.8-11.6) sec APTT 30.2 H (24.3-30.1) sec B-Natriuretic Peptide 257 H (0-100) pg/mL CBC 03/13/18 Range/Units 08:34 WBC 10.2 (4.0-11.0) th/mm3 RBC 4.02 L (4.50-5.90) mil/mm3 Hgb 12.1 L (13.0-17.0) gm/dL Hct 35.4 L (39.0-51.0) % Plt Count 240 (150-450) th/mm3 Neut # (Auto) 7.6 (1.8-7.7) th/mm3 Lymph # (Auto) 1.9 (1.0-4.8) th/mm3 [place] # (Auto) 0.5 (0.0-0.9) th/mm3 Eos # (Auto) 0.2 (0.0-0.4) th/mm3 Baso # (Auto) 0.1 (0.0-0.2) th/mm3 Comprehensive Metabolic Panel 03/13/18 Range/Units 08:34 Sodium 136 (136-145) meq/L Potassium 4.0 (3.5-5.1) meq/L Chloride 102 (98-107) meq/L Carbon Dioxide 25.7 (21.0-32.0) meq/L BUN 10 (7-18) mg/dL Creatinine 1.05 (0.60-1.30) mg/dL Calcium 8.8 (8.5-10.1) mg/dL AST 13 L (15-37) U/L ALT 27 (12-78) U/L Alkaline Phosphatase 109 (45-117) U/L Total Protein 8.3 H (6.4-8.2) g/dL Albumin 3.5 (3.4-5.0) g/dL Intake and Output 03/12/18 03/13/18 03/13/18 22:59 06:59 14:59 Other: Weight 111.13 kg Patient Weight 03/14/18 06:59 Weight 111.13 kg - Imaging and Cardiology Imaging: Impressions Chest X-Ray 03/13/18 08:29 CONCLUSION: 1. Cardiomegaly with mild pulmonary vascular congestion. Assessment and Plan - Assessment (1) Unstable angina pectoris Code(s): I20.0 - Unstable angina Status: Acute - Plan Given the elevated cardiac biomarkers in the setting of history of coronary disease with ongoing chest pain, patient be brought for cardiac catheterization. Risk benefits alternatives were discussed with the patient, patient understood and consented to the procedure. We will obtain a 2D echocardiogram. Continue with guideline directed medical therapy.
--- NOTE | 2018-03-13 14:42 | P.PCN ---
Date of procedure: 03/13/18 Pre-op diagnosis: non-ST elevation myocardial infarction Procedure: Procedure performed: 1. Fluoroscopy with interpretation 2. Coronary angiography 3. Percutaneous coronary intervention with bare-metal stent to the second obtuse marginal branch 4. Left heart catheterization Methods: Risks, benefits, and alternatives were discussed with the patient. Patient understood consented to the procedure. Patient was brought into the cardiac catheterization lab and placed in catheterization table. Right wrist was prepped and draped in a sterile fashion. Right wrist was anesthetized with 2% lidocaine. Right radial artery was cannulated and a 6 Greek 7 cm sheath was placed without difficulty. 200 mcg of intra-arterial nitroglycerin and 3000 units of intravenous heparin was administered. Left heart catheterization: 6 Greek J are 5 catheter was advanced across the aortic valve. Intraventricular hemorrhage next visit at 155/20 mmHg Coronary angiography: 1. Left main cord is widely patent 2. Left anterior descending coronary does have stents present and appears to be widely patent with mild luminal irregularities distally 3. Left circumflex coronary has mild luminal irregularities in the first and third obtuse marginal branches. The second obtuse marginal branch is a 75% stenosis present 4. Right Cordis a dominant vessel and was a posterior descending branch. Right coronary has mild irregularities posterior descending branch has minor luminal irregularities. Percutaneous intervention: Given the patient's ongoing symptoms we elected to proceed with percutaneous intervention. 6 Greek XB 3.5 guide catheter was advanced into the left main. 0.014 inch 180 cm [employer] run through wire was navigated down to the second distal portion of the obtuse marginal branch a 2.5 x 15 mm Mosaictronic integrity bare-metal stent was deployed. Repeat angiography showed no residual stenosis ALICIA-3 flow. Conclusions: 1. Severe branch vessel coronary disease involving the second obtuse marginal branch. 2. Successful percutaneous intervention with bare-metal stent to the second obtuse marginal branch. 3. Elevated left-sided filling pressures. Plans: Hopefully this will translate well to symptomatic improvement. Patient's chest pain symptoms are better. We will discontinue nitroglycerin drip. Start long- acting nitrate therapy. With patient's history of cocaine use, nonselective beta blockade would be most appropriate. We will continue carvedilol therapy. Patient will be initiated on Plavix, aspirin, statin, and beta-juan carlos. Anticipate possible discharge tomorrow.
--- NOTE | 2018-03-13 14:44 | CATHPROC ---
[employer] [place] HIS Report Study Information Study Number Admission Scheduled Start Study Start [id number] Mar 13 2018 11:13AM 03/13/2018 Mar 13 2018 1:46PM [place] [facility] Cardiac Catheterization Admit Source Facility Department Other [facility] - Systems Admin Physician and Clinical Staff Initial Sanjay Locke Teacher Learning Disabled Christofer Kramer,RN Recorder Selma Forman ,RT(R) Scrub Jocelyn Smith,BRUSH PAINTER TECH2 Procedures Performed Procedure Location (Site) Vessel Name Coronary Angiograms LCA Left Coronary Coronary Angiograms RCA Right Coronary L Heart Cath Stent OM1 Mid CIRC Wire insertion Radial (right) Radial Art. Equipment Time [employer] Crewmember Description Size Mfg Part Number Used/Scraped COPILOT VALVE, BLEEDBACK [id number] 14:14 [employer] Used CONTROL *[id number] TRANSDUCER, TRUWAVE [id number] 13:53 NAVA MEDELLIN * Used W/STOCKCOCK *[id number] *[id number] [id number] *[id number] *[id number] 13:53 [employer] BLANKET,WARM AIR CCL * Used *[id number] 13:53 [employer] PACK, CCL CUSTOM * Used *[id number] 13:53 [employer] SUPPORT, ARTERIAL ADULT 15956 *[id number] Used [id number] 14:19 [employer] STENT, 2.5 12 INTEGRITY 2.5 12 Used *[id number] 14:14 VIRxSYS 30 KALE INDEFLATOR Used *[id number] BAND, RADIAL COMPRESSION TR [id number] 14:24 [employer] 29CM Used LARGE 29 *[id number] SHEATH, FR6 RADIAL PRELUDE 13:53 [employer] FR 6 [id number] Used EASE 11CM [id number] 13:53 [employer] WIRE, EXCHANGE 260CM 3MMJ 260CM Used *[id number] 13:53 NAMIC MANIFOLD, 4 PORT * Used *[id number] 13:53 [employer]COMED OMNIPAQUE, 350 MG, 150ML 150ML [id number] Used WIRE, RUNTHROUGH NS FLOPPY [id number] 14:16 [email or web address] MEDICAL 180CM Used .014 180CM *[id number] Equipment Model, Serial, Lot Number and Expiration Data Description Model Number Serial Number Lot Number Expiration Date STENT, 2.5 12 INTEGRITY [id number] 02-24-2019 History: Current Medications Medication Dosage/Unit Route Frequency Last Date/Time Taken ASA History: Allergies Allergy Reaction No Known Allergies History: Risk Factors Family History of Hypertension Dyslipidemia Previous KS Previous Heart Failure Premature CAD Yes Yes Yes No No Prior Valve Prior PCI Prior PCIDate Prior CABG Surgery No Yes 05/30/2013 No Cerebrovascular Peripheral Artery Chronic Lung On Dialysis Diabetes Diabetes Therapy Disease Disease Disease No No No Yes Yes Oral History: Stress Tests Stress or Imaging Studies Performed No History: Other Current Smoker Packs a Day Years Used Pack Years Yes 1 30 30 Labs Hgb (g/dl) Hct (%) WBC (l/cumm) Platelets (thousands) 11.60-17.00 35.00-51.00 4.00-11.00 150.00-450.00 12.1 35.4 10.2 240 Glucose (mg/dl) BUN (mg/dl) Creatinine (mg/dl) BUN:Creatinine (1:x) 74.00-106.00 7.00-18.00 0.50-1.30 10.00-20.00 118 10 1.0 10 Na (meq/l) K (meq/l) 136.00-145.00 3.50-5.10 136 4 INR (PTT:PT) 0.90-1.10 1.1 Troponin I (ng/ml) CPK (u/l) CPK-MB (ng/ML) 0.02-0.05 26.00-308.00 0.50-3.60 0.48 76 Not Drawn Medication Medication Total Dose (Bolus/Oral) Medication Total Dosage/Unit 1% XYLOCAINE 5 mL ANGIOMAX BOLUS 17 mL FENTANYL 50 mcg PLAVIX 600 mg VERSED 2 mg Medications (Bolus/Oral) Medication Time Given Dosage/Unit Administered By Reason VERSED 03/13/2018 1:59:30 PM 2 mg Nia, Christofer 2 mg VERSED given in lab by Christofer Kramer RN in Right Antecubital via Peripheral IV. Ordered by Sanjay Roque. FENTANYL 03/13/2018 2:00:00 PM 50 mcg Nia, Christofer 50 mcg FENTANYL given in lab by Christofer Kramer RN via Peripheral IV. Ordered by Sanjay Roque. 1% XYLOCAINE 03/13/2018 2:04:56 PM 5 mL Sanjay Roque 5 mL 1% XYLOCAINE given in lab by Sanjay Roque in Right Radial via Subcutaneous. Ordered by Sanjay Roque. ANGIOMAX BOLUS 03/13/2018 2:17:00 PM 17 mL Christofer Kramer 17 mL ANGIOMAX BOLUS given in lab by Christofer Kramer RN via Peripheral IV. Ordered by Sanjay Roque. PLAVIX 03/13/2018 2:31:00 PM 600 mg Christofer Kramer 600 mg PLAVIX given in lab by Christofer Kramer RN via Oral. Ordered by Sanjay Roque. Medication (Drip) Medication Time Given Dosage/Unit Concentration/Unit Diluent (ml) Solution ANGIOMAX DRIP 03/13/2018 2:20:00 PM 1.75 mg/kg/hr 250 mg 50 NaCl .9 1.75 mg/kg/hr ANGIOMAX DRIP given in lab by Christofer Kramer RN via Peripheral IV. Pump/Drip Flow = 38.9 9 ml/hr using NaCl .9 with a concentration of 250 mg in 50 ml. Ordered by Sanjay Roque. IV Solutions 03/13/2018 1:47:00 PM 50 mL (IV) NaCl .9 Patient arrived on IV Solutions via Peripheral IV. Pump/Drip Flow using NaCl .9. Initial Case Assessment Cardiovascular HR NIBP 57 151/95 Edema Present Skin color Skin None Normal Warm Dry Circulatory - Right Pulses Dorsalis Pedis Femoral Radial 2 2 3 Scale (0,1,2,3,4,d) Circulatory - Left Pulses Dorsalis Pedis Femoral Radial 2 2 Scale (0,1,2,3,4,d) Neurological State Oriented to time-place- Alert Moves all extremities person Respiration - General Respiration Rate SpO2 (%) (B/min) 22 97 Final Case Assessment Cardiovascular HR NIBP 73 155/97 Edema Present Skin color Skin None Normal Warm Dry Circulatory - Right Pulses Dorsalis Pedis Femoral Radial 2 2 3 Scale (0,1,2,3,4,d) Circulatory - Left Pulses Dorsalis Pedis Femoral Radial 2 2 Scale (0,1,2,3,4,d) Neurological State Oriented to time-place- Alert Moves all extremities person Respiration - General Respiration Rate SpO2 (%) (B/min) 22 97 Chronological Log Time Study Chronological Log 13:40:33 Patient arrived via Bed. 13:40:37 Patient Name, D.O.B, / Armband Verified By R.N. Vitals capture started with the following parameters, Patient=Adult, Interval=5 min, Initial Pr wuxdox=320 mmHg, 13:46:31 Deflation Rate=5 mmHg, Cuff placed on Left Arm 13:46:45 Consent signed by the physician and the patient and verified by the Systems Admin staff. 13:46:45 Pre-op and post- op instructions given; patient acknowledges understanding of instructions. 13:46:46 Verbal Stimulation=2 Physical Stimulation=2 Airway=2 Respiration=2 TOTAL=8. (0=absent, 1=li mited, 2=present) 13:46:53 Allens test performed on the right radial and ulnar artery. 13:46:55 Patient has been NPO for More than 6Hrs. 13:46:56 Skin Breakdown- none per patient 13:46:57 Patient Warmer Placed on the Table. 13:46:59 Enmanuel Prominences Protected 13:46:59 A # 20 IV was noted in the Antecubital (right). Grade = 0 13:47:00 Patient arrived on IV Solutions via Peripheral IV. Pump/Drip Flow using NaCl .9. 13:47:01 History and physical on the chart or being dictated. Assessment: Initial Case, HR=57 BPM, IJTB=178/95 mmhg, Edema=None, Color=Normal, Skin = Warm, D ry Right Pulses: Yariel Ped=2, Femoral=2, Radial=3 13:47:02 Left Pulses: Yariel Ped=2, Femoral=2 Neurological: State=Alert, Ox3, LEWIS Respiration: Resp=22 B/min, SpO2=97 % 13:47:09 HR=77 bpm, XSAQ=939/94 mmhg, SpO2=84.0 %, Resp=15 B/min 13:49:49 Right Radial and groin(s) prepped with 2% chlorhexidine, and draped after a 3 min. waiting time. 13:52:08 HR=77 bpm, BONT=325/95 mmhg, SpO2=88.0 %, Resp=18 B/min 13:53:42 A # 20 IV was noted in the Hand (right). Grade = 0 13:54:42 Reference ECG taken 13:57:11 HR=61 bpm, GBSB=961/105 mmhg, Resp=26 B/min 13:58:57 MD arrived. 13:59:01 Pressure channel 1 zeroed. 13:59:30 2 mg VERSED given in lab by Christofer Kramer RN in Right Antecubital via Peripheral IV. Ordere d by Sanjay Roque. 14:00:00 50 mcg FENTANYL given in lab by Christofer Kramer RN via Peripheral IV. Ordered by Rose Roque 14:02:59 HR=66 bpm, RWJT=254/100 mmhg, SpO2=85.0 %, Resp=14 B/min Time Out. Correct patient, correct procedure, correct physician, labs, allergies, and equipment verified with cath laboratory technician 14:03:55 team present. Fire risk assesment completed (see hard stop sheet for coding). Time Out Conc urred by MD and individual staff in procedure. 14:04:55 Case Start 14:04:56 5 mL 1% XYLOCAINE given in lab by Sanjay Roque in Right Radial via Subcutaneous. Ordered by Sanjay Roque. 14:06:54 Access site was Right Radial Artery . A SHEATH, FR6 RADIAL PRELUDE EASE 11CM FR 6 was advanced into the Radial (right) using the Perc utaneous 14:07:01 technique. 14:07:11 HR=56 bpm, VMAX=250/88 mmhg, SpO2=82.0 %, Resp=28 B/min A JR 5.0 INFINITI CATHETER FR 5 was advanced over a wire. OMNIPAQUE, 350 MG, 150ML 150ML was us ed for 14:07:29 injections. Recorded Pressure: LV, HR=64, Condition=Condition 1 14:08:19 (Left Ventricle) LV 177/20/25 Recorded Pressure: LV, Ao, HR=85, Condition=Condition 1 14:08:27 (Left Ventricle) LV 155/20/26, (Aorta) Ao 164/114/137 14:08:58 The RCA was injected and visualized at various angles. OMNIPAQUE, 350 MG, 150ML 150ML used . After removing the current catheter a JL 3.5 INFINITI CATHETER FR 5 was advanced over a WIRE, E XCHANGE 260CM 14:09:04 3MMJ 260CM. Recorded Pressure: Ao, HR=85, Condition=Condition 1 14:11:05 (Aorta) Ao 154/103/125 14:11:55 The LCA was injected and visualized at various angles. OMNIPAQUE, 350 MG, 150ML 150ML used . 14:12:12 HR=62 bpm, OPZW=859/96 mmhg, SpO2=87.0 %, Resp=25 B/min 14:14:05 Catheter was removed A XB 3.5 GUIDE CATHETER FR 6 was advanced over a wire. OMNIPAQUE, 350 MG, 150ML 150ML was used for 14:16:28 injections. 14:17:00 17 mL ANGIOMAX BOLUS given in lab by Christofer Kramer RN via Peripheral IV. Ordered by Sanjay Roque. 14:17:09 HR=85 bpm, AUHV=179/101 mmhg, SpO2=87.0 %, Resp=25 B/min 14:17:47 A WIRE, RUNTHROUGH NS FLOPPY .014 180CM 180CM was inserted via Radial (right). 14:17:57 Interventional wire has crossed the lesion An STENT, 2.5 12 INTEGRITY 2.5 12 Bare Metal Stent was inserted through a XB 3.5 GUIDE CATHETER FR 6 over a 14:19:34 WIRE, RUNTHROUGH NS FLOPPY .014 180CM 180CM. A STENT, 2.5 12 INTEGRITY 2.5 12 was deployed using a 30 KALE INDEFLATOR at 18 atmospheres for 1 5 seconds in 14:19:46 the OM1 Mid. 1.75 mg/kg/hr ANGIOMAX DRIP given in lab by Christofer Kramer RN via Peripheral IV. Pump/Drip Flow = 38.99 ml/hr 14:20:00 using NaCl .9 with a concentration of 250 mg in 50 ml. Ordered by Sanjay Roque. 14:22:08 Wire removed 14:22:14 HR=74 bpm, JCNS=107/97 mmhg, SpO2=86.0 %, Resp=24 B/min 14:22:16 Catheter was removed 14:22:20 Case End (Physician broke scrub) Assessment: Final Case, HR=73 BPM, RHTJ=898/97 mmhg, Edema=None, Color=Normal, Skin = Warm, Dr y Right Pulses: Yariel Ped=2, Femoral=2, Radial=3 14:23:46 Left Pulses: Yariel Ped=2, Femoral=2 Neurological: State=Alert, Ox3, LEWIS Respiration: Resp=22 B/min, SpO2=97 % 14:24:10 Catheter(s) removed without difficulty Radial Compression Device Used. 13 mLs of air placed in BAND, RADIAL COMPRESSION TR LARGE 29 2 9CM. Affected 14:24:13 hand 97 % O2 saturation. 14:24:20 No case complications noted. 14:24:21 Cine recording checked. 14:24:23 Bedside Report will be given. 14:24:24 Implantable Device card placed in patient's chart. 14:24:25 A Left Heart Cath was performed. 14:27:15 HR=79 bpm, XSFW=212/101 mmhg, SpO2=88.0 %, Resp=25 B/min 14:31:00 600 mg PLAVIX given in lab by Christofer Kramer RN via Oral. Ordered by Sanjay Roque. 14:32:16 HR=56 bpm, YPEU=692/93 mmhg, SpO2=94.0 %, Resp=23 B/min 14:42:[address] [facility] [place] End Study - Contrast Media Used In Study Contrast Total Opened (mL) Total Used (mL) Total Wasted (mL) Omnipaque 60 60 0 End Study - Maximum Contrast Load Max Contrast Load (mL) 556.8 End Study - Radiation Exposure Fluoro Time (minutes) 4.1 End Study - Sheaths Sheaths Pulled By Sheath Hold Time (min) Jocelyn Smith End Study - Patient Disposition Complications Transferred To Interventional Outcome No Critical Care Bed successful
[2018-03-13] MEDS ORDERED: Iohexol 350 MG/ML 100 ML Vial (for Cath Lab) IVCONTRAST ONE (15:08)
--- NOTE | 2018-03-13 15:13 | P.HP ---
History of Present Illness Primary Care Physician: Tanika Otero MD Chief Complaint: Chest pain History of Present Illness: The patient is a 53 year old male with a history of CAD s/p 4 stents, last in 2013, COPD, cocaine use, hypertension, hyperlipidemia, schizophrenia and bipolar disorder who presents to the ED on 03/13/18 complaining of chest pain. The patient states he was in his usual state of health until last night, when he felt chest pain while at rest. He describes the pain as sharp and pressure, and he says it felt like the last time "I had a heart attack." He tried to sleep through it, but discovered it to be worse in the morning and decided to come to the ED. He also had nausea, vomiting, SOB, and diaphoresis. He states he last used cocaine 4 days ago. In the ED, EKG was unchanged from last in 2014, but troponins were elevated at 0.48. Chest Xray showed cardiomegaly with mild pulmonary congestion. Patient received aspirin, heparin, morphine, oxygen and nitroglycerin in the ED. Patient will be admitted pending cardiac catheterization. Medications: Proventil Furosemide Carvediol Enalipril Prozac Hydrocodone Levothyroxine Seroquel Spirinolactone Past Medical Hx: Substance abuse CAD Cocaine use HTN Hyperlipidemia COPD Bipolar Schizophrenia Surgical Hx: Appendectomy 1992 Drug-eluting stents x4, last in 2013 Defibrillator 2014 Social Hx: 1-2 drinks per month 30 pack year history - current smoker cocaine use, last used 4 days ago Family Hx: Mother - Heart disease - 1999 Father - prostate cancer - 81 years old Sister - MS - 30 years old Inpatient Certification: I certify that the inpatient services were ordered in accordance with Medicare regulations governing the order. This includes certification that hospital inpatient services are reasonable and necessary and in the case of services not specified as inpatient-only under 42 CFR 419.22(n), that they are appropriately provided as inpatient services in accordance to with the 2-midnight benchmark under 43 CFR 412.3(e) Estimated Total Length of Stay (Days): 3 Plans for Post Hospital Care: Home Review of Systems All other systems reviewed negative except as stated in HPI PMFSH - History History Provided By: Patient - Medical History Medical History: Medical History (Last Reviewed 03/13/18 @ 15:13 by Chanda Hall MD) Bipolar disorder Depression Diabetes Hypercholesteremia Hypertension Myocardial infarct Schizophrenia - Tobacco History Second Hand Smoke Exposure: No Tobacco Use In Past 30 Days: Yes Smoking Status: Current every day smoker Tobacco Type: Cigarettes Packs Per Day: 1 Years Smoked: 30 - Alcohol History How Often Do You Have a Drink Containing Alcohol: Monthly or less - Substance Use History Substance History: Active Abuse, Past History - Substance Use Type Crack/Cocaine Type: Cocaine - Travel History Recent Travel in the [place] Within the Last 8 Weeks: No Recent Travel Out of the Country Within the Last 8 Weeks: No - Immunization History Tetanus Immunization: <5 Years Medications and Allergies Active Medications: Active Medications Acetaminophen (Tylenol) 650 mg PO Q4H PRN PRN Reason: Temp > 100.4 Al Hydroxide/Mg Hydroxide (Milk Of Magnesia Liq) 30 ml PO Q12H PRN PRN Reason: Mild Constipation Bisacodyl (Dulcolax Supp) 10 mg RECTAL DAILY PRN PRN Reason: SEVERE CONSITIPATION Clopidogrel Bisulfate (Plavix) 600 mg PO ONCE ONE Stop: 03/13/18 14:26 Clopidogrel Bisulfate (Plavix) 75 mg PO DAILY CLIFF Nitroglycerin/Dextrose (Nitroglycerin Drip Premix) 50 mg in 250 mls @ 0 mls/hr IV.CONT TITRATE PRN; Protocol PRN Reason: Per Protocol Last Titration: 03/13/18 12:00 Dose: 15 mcg/min, 4.5 mls/hr Isosorbide Mononitrate (Imdur) 30 mg PO DAILY@0700 CLIFF Lactulose (Lactulose Liq) 30 ml PO DAILY PRN PRN Reason: SEVERE CONSITIPATION Miscellaneous Information (Misc Info For Pharmacy/Read Comments) 0 each OTHER STAT STA Stop: 03/13/18 14:26 Ondansetron HCl (Zofran Inj) 4 mg IV.PUSH Q6H PRN PRN Reason: NAUSEA OR VOMITING Senna/Docusate Sodium ([place]-Colace) 1 tab PO BID CLIFF Sennosides (Senokot) 17.2 mg PO Q12H PRN PRN Reason: Moderate Constipation Sodium Chloride (Ns Flush) 2 ml IV.FLUSH UNSCH PRN PRN Reason: FLUSH AFTER USING IV ACCESS Last Admin: 03/13/18 08:43 Dose: 2 ml Sodium Chloride (Ns Flush) 2 ml IV.FLUSH BID CLIFF Sodium Chloride (Ns Flush) 2 ml IV.FLUSH PRN PRN PRN Reason: FLUSH AFTER USING IV ACCESS Allergies Allergy/AdvReac Type Severity Reaction Status Date / Time No Known Allergies Allergy Verified 03/13/18 08:26 Home Medications Medication Instructions Recorded Confirmed Type amlodipine 5 mg PO DAILY 03/13/18 03/13/18 History carvedilol [Coreg] 25 mg PO BID 03/13/18 03/13/18 History enalapril maleate [Vasotec] 20 mg PO BID 03/13/18 03/13/18 History glipizide 10 mg PO DAILY 03/13/18 03/13/18 History hydrocodone-acetaminophen [[place]] 1 tab PO Q6H PRN 03/13/18 03/13/18 History pravastatin 80 mg PO HS 03/13/18 03/13/18 History Exam Vital signs: Vital Signs 03/13/18 08:14 03/13/18 08:33 03/13/18 08:35 Temperature 98.2 F Pulse Rate 95 H 88 Respiratory Rate 18 22 Blood Pressure 197/105 H 176/93 H Pulse Oximetry 95 98 03/13/18 09:42 03/13/18 11:18 03/13/18 12:31 Temperature Pulse Rate 86 88 61 Respiratory Rate 18 18 18 Blood Pressure 156/92 H 160/105 H 152/89 H Pulse Oximetry 97 97 98 Intake & Output 03/12/18 03/13/18 03/13/18 18:59 06:59 18:59 Weight 111.13 kg Narrative: GENERAL: 53 year old AA male in NAD, alert and oriented x 3. SKIN: Warm and dry. HEAD: Atraumatic. Normocephalic. EYES: Pupils equal and round. No scleral icterus. No injection or drainage. ENT: No nasal bleeding or discharge. Mucous membranes pink and moist. NECK: Trachea midline. No JVD. CARDIOVASCULAR: Regular rate and rhythm. RESPIRATORY: No accessory muscle use. Scattered wheezes. Breath sounds equal bilaterally. GASTROINTESTINAL: Abdomen soft, non-tender, nondistended. Hepatic and splenic margins not palpable. MUSCULOSKELETAL: Extremities without clubbing, cyanosis, or edema. No obvious deformities. NEUROLOGICAL: Awake and alert. No obvious cranial nerve deficits. Motor grossly within normal limits. Five out of 5 muscle strength in the arms and legs. Normal speech. PSYCHIATRIC: Appropriate mood and affect; insight and judgment normal. Results - Labs CBC & Chem 7: 03/13/18 08:34 03/13/18 08:34 Labs: Laboratory Results - last 24 hr 03/13/18 03/13/18 03/13/18 08:34 08:34 08:34 WBC 10.2 RBC 4.02 L Hgb 12.1 L Hct 35.4 L MCV 88.1 MCH 30.2 MCHC 34.3 RDW 16.8 Plt Count 240 MPV 7.8 Neut % (Auto) 74.5 H Lymph % (Auto) 18.2 [place] % (Auto) 5.1 Eos % (Auto) 1.6 Baso % (Auto) 0.6 Neut # (Auto) 7.6 Lymph # (Auto) 1.9 [place] # (Auto) 0.5 Eos # (Auto) 0.2 Baso # (Auto) 0.1 WBC Differential . Differential Comment Auto diff final PT 11.4 INR 1.1 APTT 30.2 H Sodium 136 Potassium 4.0 Chloride 102 Carbon Dioxide 25.7 Anion Gap 8 BUN 10 Creatinine 1.05 Estimated GFR 89 Random Glucose 118 H Calcium 8.8 Magnesium 2.1 Total Bilirubin 0.9 AST 13 L ALT 27 Alkaline Phosphatase 109 Total Creatine Kinase 76 Troponin I 0.48 H B-Natriuretic Peptide Total Protein 8.3 H Albumin 3.5 03/13/18 03/13/18 08:34 12:29 WBC RBC Hgb Hct MCV MCH MCHC RDW Plt Count MPV Neut % (Auto) Lymph % (Auto) [place] % (Auto) Eos % (Auto) Baso % (Auto) Neut # (Auto) Lymph # (Auto) [place] # (Auto) Eos # (Auto) Baso # (Auto) WBC Differential Differential Comment PT INR APTT Sodium Potassium Chloride Carbon Dioxide Anion Gap BUN Creatinine Estimated GFR Random Glucose Calcium Magnesium Total Bilirubin AST ALT Alkaline Phosphatase Total Creatine Kinase Troponin I 0.43 H B-Natriuretic Peptide 257 H Total Protein Albumin - Imaging Impressions Chest X-Ray 03/13/18 08:29 CONCLUSION: 1. Cardiomegaly with mild pulmonary vascular congestion. Caprini VTE Risk Assessment Caprini VTE Risk Assessment: Moderate/High Risk (score >= 2) Caprini Risk Assessment Model: Point Value = 1 Point Value = 2 Point Value = 3 Point Value = 5 Age 41-60 Minor surgery BMI > 25 kg/m2 Swollen legs Varicose veins or History of unexplained or recurrent spontaneous Oral contraceptives or hormone replacement Sepsis (< 1 month) Serious lung disease, including pneumonia (< 1 month) Abnormal pulmonary function Acute myocardial infarction Congestive heart failure (< 1 month) History of inflammatory bowel disease Medical patient at bed rest Age 61-74 Arthroscopic surgery Major open surgery (> 45 min) Laparoscopic surgery (> 45 min) Malignancy Confined to bed (> 72 hours) Immobilizing plaster cast Central venous access Age >= 75 History of VTE Family history of VTE Factor V Leiden Prothrombin [id number] Lupus anticoagulant Anticardiolipin antibodies Elevated serum homocysteine Heparin-induced thrombocytopenia Other congenital or acquired thrombophilia Stroke (< 1 month) Elective arthroplasty Hip, pelvis, or leg fracture Acute spinal cord injury (< 1 month) Prophylaxis Regimen: Total Risk Factor Score Risk Level Prophylaxis Regimen 0-1 Low Early ambulation 2 Moderate Order ONE of the following: *Sequential Compression Device (SCD) *Heparin 5000 units SQ BID 3-4 Higher Order ONE of the following medications: *Heparin 5000 units SQ TID *Enoxaparin/Lovenox 40 mg SQ daily (WT < 150 kg, CrCl > 30 mL/min) *Enoxaparin/Lovenox 30 mg SQ daily (WT < 150 kg, CrCl > 10-29 mL/min) *Enoxaparin/Lovenox 30 mg SQ BID (WT < 150 kg, CrCl > 30 mL/min) AND/OR *Sequential Compression Device (SCD) 5 or more Highest Order ONE of the following medications: *Heparin 5000 units SQ TID (Preferred with Epidurals) *Enoxaparin/Lovenox 40 mg SQ daily (WT < 150 kg, CrCl > 30 mL/min) *Enoxaparin/Lovenox 30 mg SQ daily (WT < 150 kg, CrCl > 10-29 mL/min) *Enoxaparin/Lovenox 30 mg SQ BID (WT < 150 kg, CrCl > 30 mL/min) AND *Sequential Compression Device (SCD) Assessment and Plan - Plan Unstable angina pectoris Continue O2, morphine, aspirin, heparin drip Telemetry Consult cardiology - 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
[2018-03-13] MEDS ORDERED: Dextrose 50% in Water 50 ML Vial IV.PUSH PRN (19:31)
[2018-03-13] MEDS ORDERED: Carvedilol 12.5 MG Tablet PO SCH (21:00)
[2018-03-13] MEDS: Insulin NovoLOG Aspart Correctional Sugar Inj SQ SCH (21:22)
[2018-03-13] MEDS: Senna/Docusate Sodium 8.6/50 MG Tablet PO SCH (21:23)
[2018-03-14 02:49] LABS: Baso % (Auto) 0.6 % (0.0-2.0); Eos # (Auto) 0.2 th/mm3 (0.0-0.4); Eos % (Auto) 2.7 % (0.0-4.0); Hematocrit 35.4 % (39.0-51.0); Hemoglobin 11.4 gm/dL (13.0-17.0); Lymph # (Auto) 1.4 th/mm3 (1.0-4.8); Lymph % (Auto) 17.7 % (9.0-44.0); Mean Corpuscular HGB Conc 32.1 % (32.0-36.0); Mean Corpuscular Hemoglobin 28.6 pg (27.0-34.0); Mean Platelet Volume 7.6 fL (7.0-11.0); Mono # (Auto) 0.4 th/mm3 (0.0-0.9); Mono % (Auto) 5.1 % (0.0-8.0); Neut % (Auto) 73.9 % (16.0-70.0); Platelet Count 222 th/mm3 (150-450); Red Blood Count 3.98 mil/mm3 (4.50-5.90); Red Cell Distribution Width 16.4 % (11.6-17.2); White Blood Count 8.1 th/mm3 (4.0-11.0)
[2018-03-14 03:30] LABS: Alanine Aminotransferase 36 U/L (12-78); Alkaline Phosphatase 117 U/L (45-117); Anion Gap 6 meq/L (5-15); Aspartate Aminotransferase 29 U/L (15-37); Blood Urea Nitrogen 9 mg/dL (7-18); Carbon Dioxide 29.3 meq/L (21.0-32.0); Chloride 102 meq/L (98-107); Chol/HDL Ratio 4.47 Ratio; Cholesterol 107 mg/dL (120-200); Glomerular Filtration Rate 82 mL/min (>89); Glucose,Random 142 mg/dL (74-106); HDL Cholesterol 23.9 mg/dL (40.0-60.0); LDL Cholesterol,Calculated 62 mg/dL (0-99); Potassium 4.1 meq/L (3.5-5.1); Sodium 137 meq/L (136-145); Total Protein 7.4 g/dL (6.4-8.2); Triglycerides 107 mg/dL (42-150)
[2018-03-14 03:58] LABS: Creatine Kinase 65 U/L (39-308)
[2018-03-14] MEDS ORDERED: Isosorbide Mononitrate 30 MG ER 24HR Tablet (Imdur) PO SCH (07:00)
--- NOTE | 2018-03-14 08:57 | P.PNCA ---
Subjective Interval history: Doing well overnight. No further chest pain or shortness of breath. Some soreness with right wrist. Patient follows with cardiology, Dr. Michele, as outpatient. Medications and Allergies Active Medications: Active Medications Acetaminophen (Tylenol) 650 mg PO Q4H PRN PRN Reason: Temp > 100.4 Hydrocodone Bitart/Acetaminophen ([place] 10/325) 1 tab PO Q6H PRN PRN Reason: Acute Pain Last Admin: 03/13/18 21:23 Dose: 1 tab Al Hydroxide/Mg Hydroxide (Milk Of Magnesia Liq) 30 ml PO Q12H PRN PRN Reason: Mild Constipation Amlodipine Besylate (Norvasc) 5 mg PO DAILY [facility] Bisacodyl (Dulcolax Supp) 10 mg RECTAL DAILY PRN PRN Reason: SEVERE CONSITIPATION Carvedilol (Coreg) 6.25 mg PO BID [facility] Clopidogrel Bisulfate (Plavix) 75 mg PO DAILY [facility] Dextrose (D50w Vial) 50 ml IV.PUSH UNSCH PRN PRN Reason: PER HYPOGLYCEMIA PROTOCOL Enalapril Maleate (Vasotec) 20 mg PO BID [facility] Last Admin: 03/13/18 21:23 Dose: 20 mg Insulin Aspart (Novolog Insulin Correctional Sugar Inj) 0 unit SQ [facility]; Protocol Last Admin: 03/13/18 21:22 Dose: 1 unit Isosorbide Mononitrate (Imdur) 30 mg PO DAILY@0700 [facility] Last Admin: 03/14/18 06:28 Dose: 30 mg Lactulose (Lactulose Liq) 30 ml PO DAILY PRN PRN Reason: SEVERE CONSITIPATION Ondansetron HCl (Zofran Inj) 4 mg IV.PUSH Q6H PRN PRN Reason: NAUSEA OR VOMITING Pravastatin Sodium (Pravachol) 80 mg PO HS [facility] Last Admin: 03/13/18 21:23 Dose: 80 mg Senna/Docusate Sodium (Yolie-Colace) 1 tab PO BID [facility] Last Admin: 03/13/18 21:23 Dose: Not Given Sennosides (Senokot) 17.2 mg PO Q12H PRN PRN Reason: Moderate Constipation Sodium Chloride (Ns Flush) 2 ml IV.FLUSH UNSCH PRN PRN Reason: FLUSH AFTER USING IV ACCESS Last Admin: 03/13/18 08:43 Dose: 2 ml Sodium Chloride (Ns Flush) 2 ml IV.FLUSH BID [facility] Last Admin: 03/13/18 21:22 Dose: 2 ml Sodium Chloride (Ns Flush) 2 ml IV.FLUSH PRN PRN PRN Reason: FLUSH AFTER USING IV ACCESS Allergies Allergy/AdvReac Type Severity Reaction Status Date / Time No Known Allergies Allergy Verified 03/13/18 08:26 Home Medications Medication Instructions Recorded Confirmed Type amlodipine 5 mg PO DAILY 03/13/18 03/13/18 History carvedilol [Coreg] 25 mg PO BID 03/13/18 03/13/18 History enalapril maleate [Vasotec] 20 mg PO BID 03/13/18 03/13/18 History glipizide 10 mg PO DAILY 03/13/18 03/13/18 History hydrocodone-acetaminophen [[place]] 1 tab PO Q6H PRN 03/13/18 03/13/18 History pravastatin 80 mg PO HS 03/13/18 03/13/18 History Physical Exam Vital signs: Vital Signs 03/13/18 09:42 03/13/18 11:18 03/13/18 12:31 Temperature Pulse Rate 86 88 61 Respiratory Rate 18 18 18 Blood Pressure 156/92 H 160/105 H 152/89 H Pulse Oximetry 97 97 98 03/13/18 15:42 03/13/18 15:49 03/13/18 17:00 Temperature 98.2 F Pulse Rate 67 68 91 H Respiratory Rate 16 Blood Pressure 155/104 H Pulse Oximetry 92 L 03/13/18 17:25 03/13/18 19:00 03/13/18 20:00 Temperature 98.2 F Pulse Rate 87 86 86 Respiratory Rate 16 Blood Pressure 146/95 H Pulse Oximetry 96 03/13/18 21:00 03/13/18 22:00 03/13/18 23:00 Temperature Pulse Rate 74 84 76 Respiratory Rate 16 Blood Pressure Pulse Oximetry 03/14/18 00:00 03/14/18 01:00 03/14/18 02:00 Temperature 98.6 F Pulse Rate 76 74 62 Respiratory Rate 16 Blood Pressure 133/94 H Pulse Oximetry 97 03/14/18 03:00 03/14/18 03:51 03/14/18 03:56 Temperature 98.1 F Pulse Rate 62 60 Respiratory Rate 16 16 Blood Pressure 116/81 Pulse Oximetry 99 03/14/18 04:00 03/14/18 05:00 03/14/18 06:00 Temperature Pulse Rate 75 64 71 Respiratory Rate Blood Pressure Pulse Oximetry Intake & Output 03/13/18 03/14/18 03/14/18 18:59 06:59 18:59 Intake Total 730 / 730 240 / 240 Output Total 500 / 500 950 / 950 Balance 230 / 230 -710 / -710 Weight 245 lb Intake: IV 250 / 250 Heparin/D5W 25,000 U/250 mL 25, 250 / 250 000 unit In 250 ml @ Per Protocol IV.CONT TITRATE PRN Rx #:[id number] Oral 480 / 480 240 / 240 Output: Urine 500 / 500 950 / 950 Other: # Bowel Movements 0 Narrative: GENERAL: Well-developed well-nourished. In no acute distress. NECK: No carotid bruits. No JVD. CARDIOVASCULAR: Regular rate and rhythm. No murmur appreciated. RESPIRATORY: No accessory muscle use. Clear to auscultation. Breath sounds equal bilaterally. MUSCULOSKELETAL: No clubbing or cyanosis. No edema. Right radial access site with mild bruising and intact pulses. NEUROLOGICAL: Awake and alert. Normal speech. Results 03/14/18 02:34 03/14/18 02:34 Cardiac Enzymes 03/13/18 03/13/18 03/13/18 Range/Units 08:34 08:34 12:29 AST 13 L (15-37) U/L Troponin I 0.48 H 0.43 H (0.02-0.05) ng/mL B-Natriuretic Peptide 257 H (0-100) pg/mL 03/13/18 03/14/18 Range/Units 20:00 02:34 AST 29 (15-37) U/L Troponin I 0.47 H 0.80 H* (0.02-0.05) ng/mL B-Natriuretic Peptide (0-100) pg/mL Coagulation 03/13/18 03/13/18 Range/Units 08:34 08:34 PT 11.4 (9.8-11.6) sec APTT 30.2 H (24.3-30.1) sec B-Natriuretic Peptide 257 H (0-100) pg/mL Lipids 03/14/18 Range/Units 02:34 Triglycerides 107 (42-150) mg/dL Cholesterol 107 L (120-200) mg/dL HDL Cholesterol 23.9 L (40.0-60.0) mg/dL Cholesterol/HDL Ratio 4.47 Ratio CBC 03/13/18 03/14/18 Range/Units 08:34 02:34 WBC 10.2 8.1 (4.0-11.0) th/mm3 RBC 4.02 L 3.98 L (4.50-5.90) mil/mm3 Hgb 12.1 L 11.4 L (13.0-17.0) gm/dL Hct 35.4 L 35.4 L (39.0-51.0) % Plt Count 240 222 (150-450) th/mm3 Neut # (Auto) 7.6 6.0 (1.8-7.7) th/mm3 Lymph # (Auto) 1.9 1.4 (1.0-4.8) th/mm3 [place] # (Auto) 0.5 0.4 (0.0-0.9) th/mm3 Eos # (Auto) 0.2 0.2 (0.0-0.4) th/mm3 Baso # (Auto) 0.1 0.0 (0.0-0.2) th/mm3 Comprehensive Metabolic Panel 03/13/18 03/14/18 Range/Units 08:34 02:34 Sodium 136 137 (136-145) meq/L Potassium 4.0 4.1 (3.5-5.1) meq/L Chloride 102 102 (98-107) meq/L Carbon Dioxide 25.7 29.3 (21.0-32.0) meq/L BUN 10 9 (7-18) mg/dL Creatinine 1.05 1.12 (0.60-1.30) mg/dL Calcium 8.8 8.0 L D (8.5-10.1) mg/dL AST 13 L 29 (15-37) U/L ALT 27 36 (12-78) U/L Alkaline Phosphatase 109 117 (45-117) U/L Total Protein 8.3 H 7.4 D (6.4-8.2) g/dL Albumin 3.5 3.0 L (3.4-5.0) g/dL Intake and Output 03/13/18 03/14/18 03/14/18 22:59 06:59 14:59 Intake Total 730 / 730 240 / 240 Output Total 500 / 500 950 / 950 Balance 230 / 230 -710 / -710 Intake: IV 250 / 250 Heparin/D5W 25,000 U/250 mL 25, 250 / 250 000 unit In 250 ml @ Per Protocol IV.CONT TITRATE PRN Rx #:[id number] Oral 480 / 480 240 / 240 Output: Urine 500 / 500 950 / 950 Other: # Bowel Movements 0 - Imaging and Cardiology Imaging: Impressions Chest X-Ray 03/13/18 08:29 CONCLUSION: 1. Cardiomegaly with mild pulmonary vascular congestion. Assessment and Plan - Assessment (1) Unstable angina pectoris Code(s): I20.0 - Unstable angina Status: Acute - Plan 53-year-old male with past medical history of ischemic cardiomyopathy who presented with NSTEMI Assessment: NSTEMI s/p PCI OM w/ BMS Known ischemic cardiomyopathy w/ AICD in place Bradycardia Plan: DAPT with aspirin and Plavix uninterrupted for 1 year Reduce carvedilol to 6.25 mg twice daily Imdur added Continue ACEi Continue statin 2D echocardiogram today No lifting greater than 5 pounds with right wrist for 1 week Follow-up with outpatient cardiology, Dr. Michele Discharge planning Discussed Condition With: Patient seen and examined with Dr. Horta
[2018-03-14] MEDS ORDERED: amLODIPine 5 MG Tablet PO SCH (09:00)
[2018-03-14] MEDS ORDERED: Carvedilol 6.25 MG Tablet PO SCH (09:00)
[2018-03-14 09:31] LABS: Calcium 8.8 mg/dL (8.5-10.1); Chol/HDL Ratio 4.06 Ratio; HDL Cholesterol 25.8 mg/dL (40.0-60.0); Potassium 4.4 meq/L (3.5-5.1)
[2018-03-14] MEDS: Senna/Docusate Sodium 8.6/50 MG Tablet PO SCH (09:46)
[2018-03-14] MEDS: Insulin NovoLOG Aspart Correctional Sugar Inj SQ SCH ×2 (09:47→11:52)
--- NOTE | 2018-03-14 13:00 | ECHRPT ---
Indication: CHEST PAIN CONCLUSIONS The left ventricular systolic function is severely reduced with an estimated ejection fraction in th e range of 20-25%. Mildly dilated left ventricle. Mild concentric left ventricular hypertrophy. There is global left ventricular dysfunction. A pacemaker wire is noted. The left atrial size is moderately dilated. There is a pacemaker wire present in the right atrial cavity. Mild thickening of the mitral valve leaflets. Mild mitral valve regurgitation. Mild thickening of the tricuspid valve leaflets. There is mild tricuspid valve regurgitation. The estimated pulmonary arterial pressure is 61.6 mmHg. BP: / HR: Rhythm: Sinus MEASUREMENTS (Male / Female) Normal Values Technical Quality:Good 2D ECHO LV Diastolic Diameter PLAX 6.1 cm 4.2 - 5.9 / 3.9 - 5.3 cm LV Systolic Diameter PLAX 5.5 cm IVS Diastolic Thickness 1.3 cm 0.6 - 1.0 / 0.6 - 0.9 cm LVPW Diastolic Thickness 1.3 cm 0.6 - 1.0 / 0.6 - 0.9 cm LV Relative Wall Thickness 0.4 LVOT Diameter 1.9 cm LA Systolic Diameter LX 4.7 cm 3.0 - 4.0 / 2.7 - 3.8 cm LV Ejection Fraction MOD 4C 21.8 % LV Ejection Fraction 4C AL 22.9 % M-MODE LV Diastolic Diameter MM 6.4 cm 4.2 - 5.9 / 3.9 - 5.3 cm LV Systolic Diameter MM 5.7 cm LV Ejection Fraction MM Teich 20.6 % IVS Diastolic Thickness MM 1.4 cm 0.6 - 1.0 / 0.6 - 0.9 cm LVPW Diastolic Thickness MM 1.4 cm 0.6 - 1.0 / 0.6 - 0.9 cm LV Relative Wall Thickness MM 0.4 0.24 - 0.42 / 0.22 - 0.42 Aortic Root Diameter MM 2.6 cm LA Systolic Diameter MM 3.7 cm LA Ao Ratio MM 1.4 AV Cusp Separation MM 2.3 cm DOPPLER AV Peak Velocity 142.0 cm/s AV Peak Gradient 8.1 mmHg LVOT Peak Velocity 94.3 cm/s LVOT Peak Gradient 3.6 mmHg AV Area Cont Eq pk 1.9 cm MV Area PHT 5.9 cm Mitral E Point Velocity 110.0 cm/s Mitral A Point Velocity 23.7 cm/s Mitral E to A Ratio 4.6 LV E' Lateral Velocity 4.4 cm/s Mitral E to LV E' Lateral Ratio 25.1 LV E' Septal Velocity 4.6 cm/s Mitral E to LV E' Septal Ratio 24.0 TR Peak Velocity 359.0 cm/s TR Peak Gradient 51.6 mmHg Right Atrial Pressure 10.0 mmHg Pulmonary Artery Systolic Pressu 61.6 mmHg Right Ventricular Systolic Press 61.6 mmHg PV Peak Velocity 80.1 cm/s PV Peak Gradient 2.6 mmHg FINDINGS LEFT VENTRICLE The left ventricular systolic function is severely reduced with an estimated ejection fraction in th e range of 20-25%. Mildly dilated left ventricle. Mild concentric left ventricular hypertrophy. There is global left ventricular dysfunction. RIGHT VENTRICLE A pacemaker wire is noted. LEFT ATRIUM The left atrial size is moderately dilated. RIGHT ATRIUM There is a pacemaker wire present in the right atrial cavity. ATRIAL SEPTUM Normal atrial septal thickness without atrial level shunting by limited color doppler interrogation. AORTA The aortic root and proximal ascending aorta are normal in size on limited imaging. MITRAL VALVE Mild thickening of the mitral valve leaflets. Mild mitral valve regurgitation. AORTIC VALVE Trileaflet aortic valve. No aortic valve stenosis or regurgitation. TRICUSPID VALVE Mild thickening of the tricuspid valve leaflets. There is mild tricuspid valve regurgitation. The estimated pulmonary arterial pressure is 61.6 mmHg. PULMONARY VALVE No pulmonary valve regurgitation or stenosis. VESSELS The inferior vena cava is dilated. PERICARDIUM No pericardial effusion. Mario Alberto Montano MD (Electronically Signed) Final Date:14 March 2018 12:59
--- NOTE | 2018-03-14 13:47 | P.PNIM ---
Subjective Interval history: Patient reports he is feeling great today. He denies any chest pain or shortness of breath. He is eager to go home. Physical Exam Vital signs: Vital Signs 03/13/18 15:42 03/13/18 15:49 03/13/18 17:00 Temperature 98.2 F Pulse Rate 67 68 91 H Respiratory Rate 16 Blood Pressure 155/104 H Pulse Oximetry 92 L 03/13/18 17:25 03/13/18 19:00 03/13/18 20:00 Temperature 98.2 F Pulse Rate 87 86 86 Respiratory Rate 16 Blood Pressure 146/95 H Pulse Oximetry 96 03/13/18 21:00 03/13/18 22:00 03/13/18 23:00 Temperature Pulse Rate 74 84 76 Respiratory Rate 16 Blood Pressure Pulse Oximetry 03/14/18 00:00 03/14/18 01:00 03/14/18 02:00 Temperature 98.6 F Pulse Rate 76 74 62 Respiratory Rate 16 Blood Pressure 133/94 H Pulse Oximetry 97 03/14/18 03:00 03/14/18 03:51 03/14/18 03:56 Temperature 98.1 F Pulse Rate 62 60 Respiratory Rate 16 16 Blood Pressure 116/81 Pulse Oximetry 99 03/14/18 04:00 03/14/18 05:00 03/14/18 06:00 Temperature Pulse Rate 75 64 71 Respiratory Rate Blood Pressure Pulse Oximetry 03/14/18 07:00 03/14/18 08:00 03/14/18 09:00 Temperature 98.3 F Pulse Rate 73 68 46 L Respiratory Rate 18 Blood Pressure 116/72 Pulse Oximetry 96 03/14/18 10:00 03/14/18 11:00 03/14/18 12:00 Temperature 97.7 F Pulse Rate 50 L 79 76 Respiratory Rate 18 Blood Pressure 125/73 Pulse Oximetry 92 L 03/14/18 13:00 Temperature Pulse Rate 65 Respiratory Rate Blood Pressure Pulse Oximetry Intake & Output 03/13/18 03/14/18 03/14/18 18:59 06:59 18:59 Intake Total 730 / 730 240 / 240 250 / 250 Output Total 500 / 500 950 / 950 Balance 230 / 230 -710 / -710 250 / 250 Weight 111.13 kg Intake: IV 250 / 250 250 / 250 Heparin/D5W 25,000 U/250 mL 25, 250 / 250 000 unit In 250 ml @ Per Protocol IV.CONT TITRATE PRN Rx #:[id number] Nitroglycerin Drip Premix 50 mg 250 / 250 In 250 ml @ Per Protocol IV. CONT TITRATE PRN Rx#:[id number] Oral 480 / 480 240 / 240 Output: Urine 500 / 500 950 / 950 Other: Date of Last Bowel Movement 03/13/18 # Bowel Movements 0 Narrative: GENERAL: Obese male in no acute distress. NECK: No carotid bruits. No JVD. CARDIOVASCULAR: Normal rate and regular rhythm without significant murmur. RESPIRATORY: No accessory muscle use. Clear to auscultation. Breath sounds equal bilaterally. MUSCULOSKELETAL: No clubbing or cyanosis. No edema. Right radial access site with mild bruising and intact pulses. NEUROLOGICAL: Awake and alert. Normal speech. Results - Labs CBC & Chem 7: 03/14/18 02:34 03/14/18 08:33 Laboratory Results - last 24 hr 03/13/18 03/13/18 03/13/18 20:00 20:00 21:09 WBC RBC Hgb Hct MCV MCH MCHC RDW Plt Count MPV Neut % (Auto) Lymph % (Auto) [place] % (Auto) Eos % (Auto) Baso % (Auto) Neut # (Auto) Lymph # (Auto) [place] # (Auto) Eos # (Auto) Baso # (Auto) WBC Differential Differential Comment Sodium Potassium Chloride Carbon Dioxide Anion Gap BUN Creatinine Estimated GFR POC Glucose 158 H Random Glucose 151 H Calcium Total Bilirubin AST ALT Alkaline Phosphatase Total Creatine Kinase Troponin I 0.47 H Total Protein Albumin Triglycerides Cholesterol LDL Cholesterol, Calc HDL Cholesterol Cholesterol/HDL Ratio 03/14/18 03/14/18 03/14/18 02:34 02:34 06:34 WBC 8.1 RBC 3.98 L Hgb 11.4 L Hct 35.4 L MCV 89.0 MCH 28.6 MCHC 32.1 RDW 16.4 Plt Count 222 MPV 7.6 Neut % (Auto) 73.9 H Lymph % (Auto) 17.7 [place] % (Auto) 5.1 Eos % (Auto) 2.7 Baso % (Auto) 0.6 Neut # (Auto) 6.0 Lymph # (Auto) 1.4 [place] # (Auto) 0.4 Eos # (Auto) 0.2 Baso # (Auto) 0.0 WBC Differential . Differential Comment Auto diff final Sodium 137 Potassium 4.1 Chloride 102 Carbon Dioxide 29.3 Anion Gap 6 BUN 9 Creatinine 1.12 Estimated GFR 82 L POC Glucose 175 H Random Glucose 142 H Calcium 8.0 L D Total Bilirubin 1.0 AST 29 ALT 36 Alkaline Phosphatase 117 Total Creatine Kinase 65 Troponin I 0.80 H* Total Protein 7.4 D Albumin 3.0 L Triglycerides 107 Cholesterol 107 L LDL Cholesterol, Calc 62 HDL Cholesterol 23.9 L Cholesterol/HDL Ratio 4.47 03/14/18 03/14/18 08:33 11:23 WBC RBC Hgb Hct MCV MCH MCHC RDW Plt Count MPV Neut % (Auto) Lymph % (Auto) [place] % (Auto) Eos % (Auto) Baso % (Auto) Neut # (Auto) Lymph # (Auto) [place] # (Auto) Eos # (Auto) Baso # (Auto) WBC Differential Differential Comment Sodium 136 Potassium 4.4 Chloride 102 Carbon Dioxide 28.0 Anion Gap 6 BUN 9 Creatinine 1.09 Estimated GFR 85 L POC Glucose 161 H Random Glucose 137 H Calcium 8.8 D Total Bilirubin AST ALT Alkaline Phosphatase Total Creatine Kinase 59 Troponin I Total Protein Albumin Triglycerides 67 Cholesterol 105 L LDL Cholesterol, Calc 66 HDL Cholesterol 25.8 L Cholesterol/HDL Ratio 4.06 Assessment and Plan - Plan 53-year-old male with known history of ischemic cardiomyopathy admitted with NSTEMI NSTEMI s/p PCI OM w/ BMS -Appreciate financing analyst input. Continue aspirin, Plavix for a year uninterrupted. - Continue FILEMON inhibitor, statin, Imdur added. 2D echocardiogram is unchanged with EF of 20-25%. History of AICD placement. -Patient to follow-up with his financing analyst Dr. Michele outpatient. - Patient advised to stop using cocaine and to stop smoking tobacco. The patient will continue rest of his chronic home medications. He was extensively counseled on the need to be compliant with the medications and to stop using all illicit drug use given his severe ischemic cardiomyopathy. Discharge Planning: Discharge patient to home Condition on discharge: Improved Regular Diet as tolerated Ad [place] activity Rx written: Per med rec Follow-up with primary care physician
--- NOTE | 2018-03-14 16:21 | ECG ---
Date Performed: 03/13/2018 Time Performed: 20:34:48 PTAGE: 53 years EKG: Sinus rhythm Left axis deviation Anterolateral infarct - age undetermined Left ventricular hypertrophy Since prev ious tracing, no significant change noted Abnormal ECG PREVIOUS TRACING : 03/13/2018 08.28.28 DOCTOR: Raphael Ott Interpretating Date/Time 03/14/2018 16:20:43
--- NOTE | 2018-03-14 16:21 | ECG ---
Date Performed: 03/13/2018 Time Performed: 08:28:28 PTAGE: 53 years EKG: Sinus rhythm MARKED LEFT AXIS DEVIATION ANTERIOR MYOCARDIAL INFARCTION ACUTE UT Since PREVIOUS TRACING , no significant change noted PREVIOUS TRACIN05/24/2015 06.42 DOCTOR: Raphael Ott Interpretating Date/Time 03/14/2018 16:20:09
--- NOTE | 2018-03-14 16:23 | ECG ---
Date Performed: 03/13/2018 Time Performed: 23:32:00 PTAGE: 53 years EKG: Sinus rhythm Prolonged QT interval Left axis deviation Anterolateral infarct - age undetermined Left ventricular hypertrophy Since previous tracing, no significant change noted Abnormal ECG PREVIOUS TRACING : 03/13/2018 20.34.48 DOCTOR: Raphael Ott Interpretating Date/Time 03/14/2018 16:21:50
== END 2018-03-14 14:45 | disposition home or self-care (01) ==
LOC: NEPC 08:13 → NEDA 11:13 → HCIS 15:00
PROVIDERS: ADMIT Family Medicine; ATTEND Family Medicine

== ENCOUNTER 2018-04-05 07:19 | Inpatient (IN) ==
--- NOTE | 2018-04-05 07:34 | ED ---
HPI General Chief complaint: Respiratory Symptoms Stated complaint: rt side pain/cough Time Seen by Provider: 04/05/18 07:27 History of Present Illness HPI narrative: Patient is a 53-year-old male presents emergency department for evaluation of cough right-sided chest pain and some shortness of breath for the past few days. No hemoptysis no sputum production. Patient recent hospitalization last month for evaluation of angina, ultimately had a stent placed and he is on aspirin. He states that the pain is worse in his right mid axillary line when he takes a deep breath. He also has a history of COPD. No abdominal pain no nausea no vomiting no fevers. Symptoms moderate, gradually worsening over the past few days, associated signs symptoms and context as above. Related Data Home Medications Medication Instructions Recorded Confirmed carvedilol [Coreg] 25 mg PO BID 03/13/18 04/05/18 enalapril maleate [Vasotec] 20 mg PO BID 03/13/18 04/05/18 glipizide 10 mg PO DAILY 03/13/18 04/05/18 hydrocodone-acetaminophen [[place]] 1 tab PO Q6H PRN 03/13/18 04/05/18 pravastatin 80 mg PO HS 03/13/18 04/05/18 Previous Rx's Medication Instructions Recorded amlodipine 5 mg PO DAILY #30 tab 03/14/18 aspirin [Aspir-81] 81 mg PO DAILY #30 tab 03/14/18 isosorbide mononitrate 30 mg PO DAILY@0700 #30 tab 03/14/18 Allergies Allergy/AdvReac Type Severity Reaction Status Date / Time No Known Allergies Allergy Verified 04/05/18 07:24 Review of Systems ROS: all other systems reviewed are negative [facility] Family History Family History Other Diabetes Social History Social History Substance History: Active Abuse Second Hand Smoke Exposure: No Smoking Status: Current every day smoker Tobacco Type: Cigarettes Packs Per Day: 1 Cigarettes Per Day: 20.0 Years Smoked: 30 Pack-Years: 30.00 How Often Do You Have a Drink Containing Alcohol: 2 to 4 times a month Recent Travel in [facility] within the Last 8 Weeks: No Recent Out of Country Travel within the Last 8 Weeks: No Exam Narrative Exam Narrative: GENERAL: Well-developed overweight male in no obvious distress peer SKIN: Focused skin assessment warm/dry. Well-healed midline surgical scar. HEAD: Atraumatic. Normocephalic. EYES: Pupils equal and round. No scleral icterus. No injection or drainage. ENT: No nasal bleeding or discharge. Mucous membranes pink and moist. NECK: Trachea midline. No JVD. CARDIOVASCULAR: Regular rate and rhythm. No murmur appreciated. RESPIRATORY: No accessory muscle use. Clear to auscultation. Breath sounds equal bilaterally. Perhaps very faint bibasilar rales. There is some right sided chest wall tenderness to the area described above. GASTROINTESTINAL: Abdomen soft, non-tender, nondistended. Hepatic and splenic margins not palpable. MUSCULOSKELETAL: No obvious deformities. No clubbing. No cyanosis. No edema. NEUROLOGICAL: Awake and alert. No obvious cranial nerve deficits. Motor grossly within normal limits. Normal speech. PSYCHIATRIC: Appropriate mood and affect; insight and judgment normal. Course Initial Documented Vital Signs Temperature 98.0 F 04/05/18 07:21 Pulse Rate 92 H 04/05/18 07:21 Respiratory Rate 26 H 04/05/18 07:21 Blood Pressure 143/83 H 04/05/18 07:21 Pulse Oximetry 89 L 04/05/18 07:21 Last Documented Vital Signs Temperature 97.3 F L 04/06/18 04:00 Pulse Rate 64 04/06/18 04:00 Respiratory Rate 19 04/06/18 04:00 Blood Pressure 134/90 04/06/18 04:00 Pulse Oximetry 92 L 04/06/18 04:00 Medical Decision Making MDM Narrative Medical decision making narrative: Patient room in the emergency department, having intermittent low oxygen saturations into not 89 and 90s. With person with recent hospitalization concern is for PE versus hospital-acquired pneumonia versus CHF. Patient CT PE protocol negative for PE, does show some pulmonary edema probably consistent with congestive heart failure. Last echo shows EF of 20-25%, given Lasix 80 mg IV, I think his presentation is inconsistent with pneumonia. Discussed with [facility] for admission. Medical Screen Exam Complete: Yes Emergency Medical Condition: Yes Lab Data Result diagrams: 04/06/18 03:58 04/05/18 07:40 Lab Results 04/05/18 04/05/18 04/05/18 Range/Units 07:40 07:40 07:40 WBC 11.1 H (4.0-11.0) th/mm3 RBC 3.97 L (4.50-5.90) mil/mm3 Hgb 11.4 L (13.0-17.0) gm/dL Hct 35.8 L (39.0-51.0) % MCV 90.2 (80.0-100.0) fL MCH 28.8 (27.0-34.0) pg MCHC 31.9 L (32.0-36.0) % RDW 16.6 (11.6-17.2) % Plt Count 206 (150-450) th/mm3 MPV 8.2 (7.0-11.0) fL Prelim Diff (Auto) Slide review pending Neut % (Auto) 80.8 H (16.0-70.0) % Lymph % (Auto) 11.2 (9.0-44.0) % [place] % (Auto) 6.4 (0.0-8.0) % Eos % (Auto) 1.2 (0.0-4.0) % Baso % (Auto) 0.4 (0.0-2.0) % Neut # (Auto) 9.0 H (1.8-7.7) th/mm3 Lymph # (Auto) 1.2 (1.0-4.8) th/mm3 [place] # (Auto) 0.7 (0.0-0.9) th/mm3 Eos # (Auto) 0.1 (0.0-0.4) th/mm3 Baso # (Auto) 0.0 (0.0-0.2) th/mm3 WBC Differential . Diff Scan Auto diff confirmed Differential Comment . Platelet Estimate Normal (Normal) Platelet Morphology Normal (Normal) PT (9.8-11.6) sec INR Ratio APTT (23.4-31.7) sec D-Dimer Quant (PE/DVT) (0.00-0.50) mg/L FEU Sodium 138 (136-145) meq/L Potassium 5.0 (3.5-5.1) meq/L Chloride 105 (98-107) meq/L Carbon Dioxide 28.8 (21.0-32.0) meq/L Anion Gap 4 L (5-15) meq/L BUN 11 (7-18) mg/dL Creatinine 1.02 (0.60-1.30) mg/dL Estimated GFR Greater than 89 (>89) mL/min POC Glucose (68-110) mg/dl Random Glucose 112 H (74-106) mg/dL Calcium 8.4 L (8.5-10.1) mg/dL Total Bilirubin 1.5 H (0.2-1.0) mg/dL AST 54 H (15-37) U/L ALT 41 (12-78) U/L Alkaline Phosphatase 110 (45-117) U/L Troponin I 0.42 H (0.02-0.05) ng/mL B-Natriuretic Peptide 309 H (0-100) pg/mL Total Protein 8.1 (6.4-8.2) g/dL Albumin 3.3 L (3.4-5.0) g/dL 04/05/18 04/05/18 04/05/18 Range/Units 08:28 12:19 13:16 WBC (4.0-11.0) th/mm3 RBC (4.50-5.90) mil/mm3 Hgb (13.0-17.0) gm/dL Hct (39.0-51.0) % MCV (80.0-100.0) fL MCH (27.0-34.0) pg MCHC (32.0-36.0) % RDW (11.6-17.2) % Plt Count (150-450) th/mm3 MPV (7.0-11.0) fL Prelim Diff (Auto) Neut % (Auto) (16.0-70.0) % Lymph % (Auto) (9.0-44.0) % [place] % (Auto) (0.0-8.0) % Eos % (Auto) (0.0-4.0) % Baso % (Auto) (0.0-2.0) % Neut # (Auto) (1.8-7.7) th/mm3 Lymph # (Auto) (1.0-4.8) th/mm3 [place] # (Auto) (0.0-0.9) th/mm3 Eos # (Auto) (0.0-0.4) th/mm3 Baso # (Auto) (0.0-0.2) th/mm3 WBC Differential Diff Scan Differential Comment Platelet Estimate (Normal) Platelet Morphology (Normal) PT 12.7 H (9.8-11.6) sec INR 1.3 Ratio APTT 30.9 (23.4-31.7) sec D-Dimer Quant (PE/DVT) 0.65 H (0.00-0.50) mg/L FEU Sodium (136-145) meq/L Potassium (3.5-5.1) meq/L Chloride (98-107) meq/L Carbon Dioxide (21.0-32.0) meq/L Anion Gap (5-15) meq/L BUN (7-18) mg/dL Creatinine (0.60-1.30) mg/dL Estimated GFR (>89) mL/min POC Glucose (68-110) mg/dl Random Glucose (74-106) mg/dL Calcium (8.5-10.1) mg/dL Total Bilirubin (0.2-1.0) mg/dL AST (15-37) U/L ALT (12-78) U/L Alkaline Phosphatase (45-117) U/L Troponin I 0.37 H (0.02-0.05) ng/mL B-Natriuretic Peptide (0-100) pg/mL Total Protein (6.4-8.2) g/dL Albumin (3.4-5.0) g/dL 04/05/18 04/05/18 04/05/18 Range/Units 16:29 18:10 20:39 WBC (4.0-11.0) th/mm3 RBC (4.50-5.90) mil/mm3 Hgb (13.0-17.0) gm/dL Hct (39.0-51.0) % MCV (80.0-100.0) fL MCH (27.0-34.0) pg MCHC (32.0-36.0) % RDW (11.6-17.2) % Plt Count (150-450) th/mm3 MPV (7.0-11.0) fL Prelim Diff (Auto) Neut % (Auto) (16.0-70.0) % Lymph % (Auto) (9.0-44.0) % [place] % (Auto) (0.0-8.0) % Eos % (Auto) (0.0-4.0) % Baso % (Auto) (0.0-2.0) % Neut # (Auto) (1.8-7.7) th/mm3 Lymph # (Auto) (1.0-4.8) th/mm3 [place] # (Auto) (0.0-0.9) th/mm3 Eos # (Auto) (0.0-0.4) th/mm3 Baso # (Auto) (0.0-0.2) th/mm3 WBC Differential Diff Scan Differential Comment Platelet Estimate (Normal) Platelet Morphology (Normal) PT (9.8-11.6) sec INR Ratio APTT 33.0 H (23.4-31.7) sec D-Dimer Quant (PE/DVT) (0.00-0.50) mg/L FEU Sodium (136-145) meq/L Potassium (3.5-5.1) meq/L Chloride (98-107) meq/L Carbon Dioxide (21.0-32.0) meq/L Anion Gap (5-15) meq/L BUN (7-18) mg/dL Creatinine (0.60-1.30) mg/dL Estimated GFR (>89) mL/min POC Glucose 106 122 H (68-110) mg/dl Random Glucose (74-106) mg/dL Calcium (8.5-10.1) mg/dL Total Bilirubin (0.2-1.0) mg/dL AST (15-37) U/L ALT (12-78) U/L Alkaline Phosphatase (45-117) U/L Troponin I (0.02-0.05) ng/mL B-Natriuretic Peptide (0-100) pg/mL Total Protein (6.4-8.2) g/dL Albumin (3.4-5.0) g/dL 04/06/18 04/06/18 04/06/18 Range/Units 03:58 03:58 07:27 WBC 9.4 (4.0-11.0) th/mm3 RBC 4.01 L (4.50-5.90) mil/mm3 Hgb 11.7 L (13.0-17.0) gm/dL Hct 35.9 L (39.0-51.0) % MCV 89.5 (80.0-100.0) fL MCH 29.1 (27.0-34.0) pg MCHC 32.5 (32.0-36.0) % RDW 16.4 (11.6-17.2) % Plt Count 204 (150-450) th/mm3 MPV 7.8 (7.0-11.0) fL Prelim Diff (Auto) Neut % (Auto) (16.0-70.0) % Lymph % (Auto) (9.0-44.0) % [place] % (Auto) (0.0-8.0) % Eos % (Auto) (0.0-4.0) % Baso % (Auto) (0.0-2.0) % Neut # (Auto) (1.8-7.7) th/mm3 Lymph # (Auto) (1.0-4.8) th/mm3 [place] # (Auto) (0.0-0.9) th/mm3 Eos # (Auto) (0.0-0.4) th/mm3 Baso # (Auto) (0.0-0.2) th/mm3 WBC Differential Diff Scan Differential Comment Platelet Estimate (Normal) Platelet Morphology (Normal) PT (9.8-11.6) sec INR Ratio APTT 33.8 H (23.4-31.7) sec D-Dimer Quant (PE/DVT) (0.00-0.50) mg/L FEU Sodium (136-145) meq/L Potassium (3.5-5.1) meq/L Chloride (98-107) meq/L Carbon Dioxide (21.0-32.0) meq/L Anion Gap (5-15) meq/L BUN (7-18) mg/dL Creatinine (0.60-1.30) mg/dL Estimated GFR (>89) mL/min POC Glucose 180 H (68-110) mg/dl Random Glucose (74-106) mg/dL Calcium (8.5-10.1) mg/dL Total Bilirubin (0.2-1.0) mg/dL AST (15-37) U/L ALT (12-78) U/L Alkaline Phosphatase (45-117) U/L Troponin I (0.02-0.05) ng/mL B-Natriuretic Peptide (0-100) pg/mL Total Protein (6.4-8.2) g/dL Albumin (3.4-5.0) g/dL Imaging Data Radiologist's impression: Chest X-Ray 04/05/18 07:39 CONCLUSION: 1. Cardiomegaly with mild pulmonary vascular congestion. 2. Patchy right lower lung zone airspace disease concerning for developing pneumonia or aspiration in the appropriate clinical setting. Chest CTA 04/05/18 08:16 CONCLUSION: 1. No CT evidence for pulmonary artery embolism as questioned. 2. Cardiomegaly with diffuse groundglass opacities likely reflecting mild pulmonary edema. Discharge Plan Discharge Disposition Patient Disposition: 30 Still Patient Discharge Condition Condition: Fair Discharge Details Diagnosis: Acute exacerbation of CHF (congestive heart failure), Hypoxia, Chest pain Physicians Team ED Provider: Kristian Bryant Primary Care Provider: Tanika Otero Attending Provider: Brandin Olvera Other Providers: Adri Woods ; [facility],Insurance Discharge Interventions Interventions: ED Discharge Assessment Last Done: 04/05/18 15:07 Vital Signs Last Done: 04/05/18 10:13 Status ED Status: Left Department Discharge Information Discharge Date/Time: 04/05/18 15:08
[2018-04-05 07:59] LABS: Baso % (Auto) 0.4 % (0.0-2.0); Eos # (Auto) 0.1 th/mm3 (0.0-0.4); Eos % (Auto) 1.2 % (0.0-4.0); Hematocrit 35.8 % (39.0-51.0); Hemoglobin 11.4 gm/dL (13.0-17.0); Lymph # (Auto) 1.2 th/mm3 (1.0-4.8); Lymph % (Auto) 11.2 % (9.0-44.0); Mean Corpuscular HGB Conc 31.9 % (32.0-36.0); Mean Corpuscular Hemoglobin 28.8 pg (27.0-34.0); Mean Corpuscular Volume 90.2 fL (80.0-100.0); Mean Platelet Volume 8.2 fL (7.0-11.0); Mono # (Auto) 0.7 th/mm3 (0.0-0.9); Mono % (Auto) 6.4 % (0.0-8.0); Neut % (Auto) 80.8 % (16.0-70.0); Platelet Count 206 th/mm3 (150-450); Red Blood Count 3.97 mil/mm3 (4.50-5.90); Red Cell Distribution Width 16.6 % (11.6-17.2); White Blood Count 11.1 th/mm3 (4.0-11.0)
--- NOTE | 2018-04-05 08:08 | XR ---
EXAM DATE: 04/05/2018 7:51 AM EST AGE/SEX: 53 years / Male INDICATIONS: Cough and right side lower chest pain. CLINICAL DATA: This is the patient's initial encounter. Patient reports that signs and symptoms have been present for 4 - 6 days and indicates a pain score of 7/10. MEDICAL/SURGICAL HISTORY: . Cardiovascular disease. Chronic obstructive pulmonary disease. smok er. . Coronary artery stent. Pacemaker. COMPARISON: [facility], CHEST 1V SINGLE AP, 03/13/2018. . FINDINGS: Stable single lead AICD device. Persistent diffuse interstitial prominence with patchy airspace disea se in the right lower lung zone. Cardiac silhouette is mildly enlarged with indistinct central pulmon nanci vascularity. Remainder of exam is unchanged. CONCLUSION: 1. Cardiomegaly with mild pulmonary vascular congestion. 2. Patchy right lower lung zone airspace disease concerning for developing pneumonia or aspiration i n the appropriate clinical setting. Electronically signed by: Josue Ramirez MD 04/05/2018 8:07 AM EST
[2018-04-05 08:19] LABS: Alkaline Phosphatase 110 U/L (45-117); Total Protein 8.1 g/dL (6.4-8.2); Troponin I 0.42 ng/mL (0.02-0.05)
[2018-04-05 08:22] LABS: Alanine Aminotransferase 41 U/L (12-78); Albumin 3.3 g/dL (3.4-5.0); Anion Gap 4 meq/L (5-15); Aspartate Aminotransferase 54 U/L (15-37); Blood Urea Nitrogen 11 mg/dL (7-18); Calcium 8.4 mg/dL (8.5-10.1); Carbon Dioxide 28.8 meq/L (21.0-32.0); Chloride 105 meq/L (98-107); Glomerular Filtration Rate Greater Than 89 mL/min (>89); Glucose,Random 112 mg/dL (74-106); Sodium 138 meq/L (136-145)
[2018-04-05 08:38] LABS: Platelet Estimate Normal (Normal); Platelet Morphology Normal (Normal)
--- NOTE | 2018-04-05 10:17 | CT ---
EXAM DATE: 04/05/2018 10:10 AM EST AGE/SEX: 53 years / Male INDICATIONS: Right side chest pain. Cough for one week. CLINICAL DATA: This is the patient's initial encounter. Patient reports that signs and symptoms have been present for 1 week and indicates a pain score of 9/10. MEDICAL/SURGICAL HISTORY: Chronic obstructive pulmonary disease. Myocardial infarction. Hypertens ion. Diabetes. Pacemaker. Cardiac stent. RADIATION DOSE: 23.38 CTDI (mGy) COMPARISON: [facility], CHEST 1V SINGLE AP, 04/05/2018. . TECHNIQUE: Volumetric scanning was performed using a multi-row detector CT scanner during bolus infu gina of 72 ml Omnipaque 350 (iohexol) nonionic water-soluble contrast as a single exam dose. The charles a was post processed with a variety of visualization algorithms including full volume maximum intensi ty projection and sliding thin slab reformation. Using automated exposure control and adjustment of the mA and/or kV according to patient size, radiation dose was kept as low as reasonably achievable t o obtain optimal diagnostic quality images. DICOM format image data is available electronically for review and comparison. FINDINGS: Pulmonary Arteries: No filling defects are seen in the pulmonary arteries through the segmental vess els. The main pulmonary artery is normal in diameter. Lung: Diffuse groundglass opacities with slight mosaic attenuation in the lower lobes bilaterally. M ild paraseptal emphysema. Pleura: Trace right-sided pleural effusion. Mediastinum: Four-chamber cardiac enlargement with coronary artery stent in place. No significant pe ricardial effusion. Osseous Structures: Old right-sided rib fractures. No abnormal lytic or blastic bony lesions. Other: Visulaized upper abdomen is unremarkable. CONCLUSION: 1. No CT evidence for pulmonary artery embolism as questioned. 2. Cardiomegaly with diffuse groundglass opacities likely reflecting mild pulmonary edema. Electronically signed by: Josue Ramirez MD 04/05/2018 10:15 AM EST
[2018-04-05] MEDS ORDERED: Heparin 10,000 UNITS/10 ML Vial (for IV use) IV.PUSH STA (12:02)
[2018-04-05] MEDS ORDERED: Heparin Drip 25,000 UNIT/250 ML BAG IV.CONT PRN (12:02)
[2018-04-05 12:46] LABS: Activated Partial Thrombo Time 30.9 sec (23.4-31.7); INR 1.3 Ratio; Prothrombin Time 12.7 sec (9.8-11.6)
--- NOTE | 2018-04-05 12:46 | P.HP ---
History of Present Illness Primary Care Physician: Tanika Otero MD History of Present Illness: 53-year-old black male being admitted for shortness of breath. Patient was in his usual state of health until about 4 days ago and began experiencing coughing, shortness of breath, and posttussive right-sided chest pain. Patient says this is progressed since onset and does have some intermittently productive sputum. Denies any fevers or chills. Thinks that his abdomen has become more distended over the week but denies any lower extremity edema. Denies any fevers or chills. Reports only posttussive emesis but no alycia isolated nausea or vomiting. Patient says he ran out of his Lasix supply about a week ago even though he says he was officially instructed to stop taking Lasix prior to that by his computer peripheral equipment operator. In the emergency department he was noted to be saturating at about 89% on room air. Chest x-ray was performed which and apparently reviewed which showed very mild pulmonary edema. CT scan was negative for any pulmonary embolism. BNP was around the 300s. Troponin was elevated at 0.4. EKG which I independently reviewed showed no acute changes concerning for ischemia or infarction. Patient was given IV Lasix. White count unremarkable. Patient was discharged from the hospital about 3 weeks ago after having undergone bare-metal stenting to the obtuse marginal for a NSTEMI. Pt reports he 's only taking aspirin for blood thinners. Inpatient Certification: I certify that the inpatient services were ordered in accordance with Medicare regulations governing the order. This includes certification that hospital inpatient services are reasonable and necessary and in the case of services not specified as inpatient-only under 42 CFR 419.22(n), that they are appropriately provided as inpatient services in accordance to with the 2-midnight benchmark under 43 CFR 412.3(e) Estimated Total Length of Stay (Days): 2 Plans for Post Hospital Care: Not yet determined Review of Systems All other systems reviewed negative except as stated in HPI [facility] - History History Provided By: Patient - Medical History Medical History: Medical History (Last Reviewed 04/05/18 @ 12:50 by Randy Littlejohn MD) COPD (chronic obstructive pulmonary disease) Heart disease Smoker Bipolar disorder Depression Diabetes Hypercholesteremia Hypertension Myocardial infarct Schizophrenia - Surgical History Surgical History: Surgical History (Last Reviewed 04/05/18 @ 12:50 by Randy Littlejohn MD) History of heart artery stent - Family History Family History: Family History (Last Updated 04/05/18 @ 12:50 by Randy Littlejohn MD) Other Diabetes - Social History I have reviewed the patient's Social History: Yes - Tobacco History Second Hand Smoke Exposure: No Tobacco Use In Past 30 Days: Yes Smoking Status: Current every day smoker Tobacco Type: Cigarettes Packs Per Day: 1 Years Smoked: 30 - Alcohol History How Often Do You Have a Drink Containing Alcohol: 2 to 4 times a month - Substance Use History Substance History: Active Abuse - Substance Use Type Crack/Cocaine Status: Active Comment: last used 2 days ago - Travel History Recent Travel in the [place] Within the Last 8 Weeks: No Recent Travel Out of the Country Within the Last 8 Weeks: No - Immunization History Tetanus Immunization: <5 Years Medications and Allergies Active Medications: Active Medications Heparin Sodium/Dextrose (Heparin/D5w 25,000 U/250 Ml) 25,000 unit in 250 mls @ 0 mls/hr IV.CONT TITRATE PRN; Protocol PRN Reason: Per Protocol Sodium Chloride (Ns Flush) 2 ml IV.FLUSH UNSCH PRN PRN Reason: FLUSH AFTER USING IV ACCESS Last Admin: 04/05/18 10:36 Dose: 2 ml Sodium Chloride (Ns Flush) 2 ml IV.FLUSH BID CLIFF Sodium Chloride (Ns Flush) 2 ml IV.FLUSH PRN PRN PRN Reason: FLUSH AFTER USING IV ACCESS Allergies Allergy/AdvReac Type Severity Reaction Status Date / Time No Known Allergies Allergy Verified 04/05/18 07:24 Home Medications Medication Instructions Recorded Confirmed Type carvedilol [Coreg] 25 mg PO BID 03/13/18 04/05/18 History enalapril maleate [Vasotec] 20 mg PO BID 03/13/18 04/05/18 History glipizide 10 mg PO DAILY 03/13/18 04/05/18 History hydrocodone-acetaminophen [[place]] 1 tab PO Q6H PRN 03/13/18 04/05/18 History pravastatin 80 mg PO HS 03/13/18 04/05/18 History Exam Vital signs: Vital Signs 04/05/18 07:21 04/05/18 07:31 04/05/18 07:51 Temperature 98.0 F Pulse Rate 92 H 88 77 Respiratory Rate 26 H 16 Blood Pressure 143/83 H 139/88 Pulse Oximetry 89 L 95 96 04/05/18 08:11 04/05/18 09:02 04/05/18 10:13 Temperature Pulse Rate 77 73 73 Respiratory Rate 26 H 22 16 Blood Pressure 158/88 H 126/77 134/84 Pulse Oximetry 97 96 95 04/05/18 11:26 Temperature Pulse Rate 73 Respiratory Rate 16 Blood Pressure 133/83 Pulse Oximetry 95 Intake & Output 04/04/18 04/05/18 04/05/18 18:59 06:59 18:59 Weight 104.326 kg Narrative: VS: afebrile GENERAL: Well-nourished middle-age black male in no acute distress SKIN: Warm and dry. EYES: No scleral icterus. No injection or drainage. ENT: No nasal bleeding or discharge. CARDIOVASCULAR: Regular rate and rhythm. no murmurs RESPIRATORY: No accessory muscle use. Crackles heard bibasilarly GASTROINTESTINAL: Abdomen soft, non-tender, minimal abdominal distention Extremities: No clubbing, cyanosis, or edema. No obvious deformities. MUSCULOSKELETAL: adequate muscle bulk and tone for age and habitus NEUROLOGICAL: Awake and alert. No obvious cranial nerve deficits. No facial droop nor slurred speech noted. PSYCHIATRIC: Appropriate mood and affect; insight and judgment normal. Results - Labs CBC & Chem 7: 04/05/18 07:40 04/05/18 07:40 Labs: Laboratory Results - last 24 hr 04/05/18 04/05/18 04/05/18 07:40 07:40 07:40 WBC 11.1 H RBC 3.97 L Hgb 11.4 L Hct 35.8 L MCV 90.2 MCH 28.8 MCHC 31.9 L RDW 16.6 Plt Count 206 MPV 8.2 Prelim Diff (Auto) Slide review pending Neut % (Auto) 80.8 H Lymph % (Auto) 11.2 [place] % (Auto) 6.4 Eos % (Auto) 1.2 Baso % (Auto) 0.4 Neut # (Auto) 9.0 H Lymph # (Auto) 1.2 [place] # (Auto) 0.7 Eos # (Auto) 0.1 Baso # (Auto) 0.0 WBC Differential . Diff Scan Auto diff confirmed Differential Comment . Platelet Estimate Normal Platelet Morphology Normal PT INR APTT D-Dimer Quant (PE/DVT) Sodium 138 Potassium 5.0 Chloride 105 Carbon Dioxide 28.8 Anion Gap 4 L BUN 11 Creatinine 1.02 Estimated GFR Greater than 89 Random Glucose 112 H Calcium 8.4 L Total Bilirubin 1.5 H AST 54 H ALT 41 Alkaline Phosphatase 110 Troponin I 0.42 H B-Natriuretic Peptide 309 H Total Protein 8.1 Albumin 3.3 L 04/05/18 04/05/18 08:28 12:19 WBC RBC Hgb Hct MCV MCH MCHC RDW Plt Count MPV Prelim Diff (Auto) Neut % (Auto) Lymph % (Auto) [place] % (Auto) Eos % (Auto) Baso % (Auto) Neut # (Auto) Lymph # (Auto) [place] # (Auto) Eos # (Auto) Baso # (Auto) WBC Differential Diff Scan Differential Comment Platelet Estimate Platelet Morphology PT 12.7 H INR 1.3 APTT 30.9 D-Dimer Quant (PE/DVT) 0.65 H Sodium Potassium Chloride Carbon Dioxide Anion Gap BUN Creatinine Estimated GFR Random Glucose Calcium Total Bilirubin AST ALT Alkaline Phosphatase Troponin I B-Natriuretic Peptide Total Protein Albumin - Imaging Impressions Chest X-Ray 04/05/18 07:39 CONCLUSION: 1. Cardiomegaly with mild pulmonary vascular congestion. 2. Patchy right lower lung zone airspace disease concerning for developing pneumonia or aspiration in the appropriate clinical setting. Chest CTA 04/05/18 08:16 CONCLUSION: 1. No CT evidence for pulmonary artery embolism as questioned. 2. Cardiomegaly with diffuse groundglass opacities likely reflecting mild pulmonary edema. Caprini VTE Risk Assessment Caprini VTE Risk Assessment: Moderate/High Risk (score >= 2) Caprini Risk Assessment Model: Point Value = 1 Point Value = 2 Point Value = 3 Point Value = 5 Age 41-60 Minor surgery BMI > 25 kg/m2 Swollen legs Varicose veins or History of unexplained or recurrent spontaneous Oral contraceptives or hormone replacement Sepsis (< 1 month) Serious lung disease, including pneumonia (< 1 month) Abnormal pulmonary function Acute myocardial infarction Congestive heart failure (< 1 month) History of inflammatory bowel disease Medical patient at bed rest Age 61-74 Arthroscopic surgery Major open surgery (> 45 min) Laparoscopic surgery (> 45 min) Malignancy Confined to bed (> 72 hours) Immobilizing plaster cast Central venous access Age >= 75 History of VTE Family history of VTE Factor V Leiden Prothrombin [id number] Lupus anticoagulant Anticardiolipin antibodies Elevated serum homocysteine Heparin-induced thrombocytopenia Other congenital or acquired thrombophilia Stroke (< 1 month) Elective arthroplasty Hip, pelvis, or leg fracture Acute spinal cord injury (< 1 month) Prophylaxis Regimen: Total Risk Factor Score Risk Level Prophylaxis Regimen 0-1 Low Early ambulation 2 Moderate Order ONE of the following: *Sequential Compression Device (SCD) *Heparin 5000 units SQ BID 3-4 Higher Order ONE of the following medications: *Heparin 5000 units SQ TID *Enoxaparin/Lovenox 40 mg SQ daily (WT < 150 kg, CrCl > 30 mL/min) *Enoxaparin/Lovenox 30 mg SQ daily (WT < 150 kg, CrCl > 10-29 mL/min) *Enoxaparin/Lovenox 30 mg SQ BID (WT < 150 kg, CrCl > 30 mL/min) AND/OR *Sequential Compression Device (SCD) 5 or more Highest Order ONE of the following medications: *Heparin 5000 units SQ TID (Preferred with Epidurals) *Enoxaparin/Lovenox 40 mg SQ daily (WT < 150 kg, CrCl > 30 mL/min) *Enoxaparin/Lovenox 30 mg SQ daily (WT < 150 kg, CrCl > 10-29 mL/min) *Enoxaparin/Lovenox 30 mg SQ BID (WT < 150 kg, CrCl > 30 mL/min) AND *Sequential Compression Device (SCD) Assessment and Plan - Plan 53-year-old black male being admitted for shortness of breath. Mild acute hypoxic respiratory failure Shortness of breath Systolic CHF exacerbation, CTA is negative for PE IV Lasix with potassium supplementation, monitor intake and output -Continue home lisinopril and Coreg - wean O2 as tolerated COPD No acute exacerbation, continue home albuterol as needed Elevated troponin CAD -recent BMS placement ~ 3 wks ago, taking only aspirin for antiplatelet since then Aspirin, statin, Coreg -We will start heparin drip and consult cardiology, defer decision to start Plavix vs intervention by cardiology Posttussive chest pain Costochondritis in nature, supportive care heparin
[2018-04-05] MEDS ORDERED: Dextrose 50% in Water 50 ML Vial IV.PUSH PRN (16:02)
--- NOTE | 2018-04-05 16:21 | P.CONCA ---
History of Present Illness Service: Cardiology Consult date: 04/05/18 Requesting Physician: Randy Littlejohn Reason for Consult: Cardiac stent recently Primary Care Provider: Tanika Otero MD History of Present Illness: This is a 53-year-old male with a past medical history of COPD , CAD, smoker, bipolar disorder, depression, diabetes, hypertension, hypercholesteremia, schizophrenia and CA. He came to the Emergency Department today for further evaluation of a cough and right lateral posterior back pain that has progressive became worse over the last 4 days. He also complains of coughing up sputum as well. He states that 3 weeks ago he had a cardiac stent placed and is only taking ASA for anticoagulation. He denies any CP, pressure, palpitations, dizziness or edema. He does complain of right lateral posterior back pain that he rates a 9/10 and is requesting pain medications. Review of Systems All other systems reviewed negative except as stated in HPI [facility] - History History Provided By: Patient - Medical History Medical History: Medical History (Last Reviewed 04/05/18 @ 12:50 by Randy Littlejohn MD) COPD (chronic obstructive pulmonary disease) Heart disease Smoker Bipolar disorder Depression Diabetes Hypercholesteremia Hypertension Myocardial infarct Schizophrenia - Surgical History Surgical History: Surgical History (Last Reviewed 04/05/18 @ 12:50 by Randy Littlejohn MD) History of heart artery stent - Family History Family History: Family History (Last Updated 04/05/18 @ 12:50 by Randy Littlejohn MD) Other Diabetes - Tobacco History Second Hand Smoke Exposure: No Tobacco Use In Past 30 Days: Yes Smoking Status: Current every day smoker Tobacco Type: Cigarettes Packs Per Day: 1 Years Smoked: 30 - Alcohol History How Often Do You Have a Drink Containing Alcohol: 2 to 4 times a month - Substance Use History Substance History: Active Abuse - Substance Use Type Crack/Cocaine Status: Active Comment: last used 2 days ago - Travel History Recent Travel in the [place] Within the Last 8 Weeks: No Recent Travel Out of the Country Within the Last 8 Weeks: No - Immunization History Tetanus Immunization: <5 Years Medications and Allergies Allergies Allergy/AdvReac Type Severity Reaction Status Date / Time No Known Allergies Allergy Verified 04/05/18 07:24 Home Medications Medication Instructions Recorded Confirmed Type carvedilol [Coreg] 25 mg PO BID 03/13/18 04/05/18 History enalapril maleate [Vasotec] 20 mg PO BID 03/13/18 04/05/18 History glipizide 10 mg PO DAILY 03/13/18 04/05/18 History hydrocodone-acetaminophen [[place]] 1 tab PO Q6H PRN 03/13/18 04/05/18 History pravastatin 80 mg PO HS 03/13/18 04/05/18 History Active Medications: Active Medications Amlodipine Besylate (Norvasc) 5 mg PO DAILY [facility] Aspirin (Ecotrin) 81 mg PO DAILY [facility] Atorvastatin Calcium (Lipitor) 40 mg PO HS [facility] Carvedilol (Coreg) 25 mg PO BID [facility] Dextrose (D50w Vial) 50 ml IV.PUSH UNSCH PRN PRN Reason: PER HYPOGLYCEMIA PROTOCOL Enalapril Maleate (Vasotec) 20 mg PO BID [facility]IFF Furosemide (Lasix Inj) 40 mg IV.PUSH BID@0900,1800 [facility] Glucagon (Glucagon Inj) 1 mg OTHER PRN PRN PRN Reason: for Hypoglycemia Protocol Heparin Sodium/Dextrose (Heparin/D5w 25,000 U/250 Ml) 25,000 unit in 250 mls @ 0 mls/hr IV.CONT TITRATE PRN; Protocol PRN Reason: Per Protocol Last Admin: 04/05/18 13:10 Dose: 1,000 units/hr, 10 mls/hr Insulin Aspart (Novolog Insulin Correctional Sugar Inj) 0 unit SQ ACHS CLIFF; Protocol Isosorbide Mononitrate (Imdur) 30 mg PO DAILY@0700 [facility] Sodium Chloride (Ns Flush) 2 ml IV.FLUSH UNSCH PRN PRN Reason: FLUSH AFTER USING IV ACCESS Last Admin: 04/05/18 10:36 Dose: 2 ml Sodium Chloride (Ns Flush) 2 ml IV.FLUSH BID [facility] Sodium Chloride (Ns Flush) 2 ml IV.FLUSH PRN PRN PRN Reason: FLUSH AFTER USING IV ACCESS Exam Vital signs: Vital Signs 04/05/18 07:21 04/05/18 07:31 04/05/18 07:51 Temperature 98.0 F Pulse Rate 92 H 88 77 Respiratory Rate 26 H 16 Blood Pressure 143/83 H 139/88 Pulse Oximetry 89 L 95 96 04/05/18 08:11 04/05/18 09:02 11/07/18 10:13 Temperature Pulse Rate 77 73 73 Respiratory Rate 26 H 22 16 Blood Pressure 158/88 H 126/77 134/84 Pulse Oximetry 97 96 95 04/05/18 11:26 04/05/18 13:32 Temperature Pulse Rate 73 64 Respiratory Rate 16 22 Blood Pressure 133/83 135/72 Pulse Oximetry 95 97 Intake & Output 04/04/18 04/05/18 04/05/18 18:59 06:59 18:59 Weight 104.326 kg - Constitutional no acute distress - Routine HEENT Exam Head: Present: normocephalic Eye: Present: PERRL ENT: Present: mucous membranes moist - Routine Neck Exam Present: full ROM - Routine Respiratory Exam Present: crackles Comments: crackles noted bilaterally in the bases. - Routine Cardiovascular Exam Present: S1, S2. Absent: murmur, gallop, rubs - Routine Abdominal Exam Present: normoactive bowel sounds - Routine Extremities Exam Present: full ROM, pulses intact, normal capillary refill. Absent: cyanosis, clubbing, edema - Routine Skin Exam Present: intact - Routine Neurological Exam Present: oriented X3 Results 04/05/18 07:40 04/05/18 07:40 Cardiac Enzymes 04/05/18 04/05/18 04/05/18 Range/Units 07:40 07:40 13:16 AST 54 H (15-37) U/L Troponin I 0.42 H 0.37 H (0.02-0.05) ng/mL B-Natriuretic Peptide 309 H (0-100) pg/mL Coagulation 04/05/18 04/05/18 Range/Units 07:40 12:19 PT 12.7 H (9.8-11.6) sec APTT 30.9 (23.4-31.7) sec B-Natriuretic Peptide 309 H (0-100) pg/mL CBC 04/05/18 Range/Units 07:40 WBC 11.1 H (4.0-11.0) th/mm3 RBC 3.97 L (4.50-5.90) mil/mm3 Hgb 11.4 L (13.0-17.0) gm/dL Hct 35.8 L (39.0-51.0) % Plt Count 206 (150-450) th/mm3 Neut # (Auto) 9.0 H (1.8-7.7) th/mm3 Lymph # (Auto) 1.2 (1.0-4.8) th/mm3 [place] # (Auto) 0.7 (0.0-0.9) th/mm3 Eos # (Auto) 0.1 (0.0-0.4) th/mm3 Baso # (Auto) 0.0 (0.0-0.2) th/mm3 Comprehensive Metabolic Panel 04/05/18 Range/Units 07:40 Sodium 138 (136-145) meq/L Potassium 5.0 (3.5-5.1) meq/L Chloride 105 (98-107) meq/L Carbon Dioxide 28.8 (21.0-32.0) meq/L BUN 11 (7-18) mg/dL Creatinine 1.02 (0.60-1.30) mg/dL Calcium 8.4 L (8.5-10.1) mg/dL AST 54 H (15-37) U/L ALT 41 (12-78) U/L Alkaline Phosphatase 110 (45-117) U/L Total Protein 8.1 (6.4-8.2) g/dL Albumin 3.3 L (3.4-5.0) g/dL Intake and Output 04/05/18 04/05/18 04/05/18 06:59 14:59 22:59 Other: Weight 104.326 kg Patient Weight 04/06/18 06:59 Weight 104.326 kg - Imaging and Cardiology Imaging: Impressions Chest X-Ray 04/05/18 07:39 CONCLUSION: 1. Cardiomegaly with mild pulmonary vascular congestion. 2. Patchy right lower lung zone airspace disease concerning for developing pneumonia or aspiration in the appropriate clinical setting. Chest CTA 04/05/18 08:16 CONCLUSION: 1. No CT evidence for pulmonary artery embolism as questioned. 2. Cardiomegaly with diffuse groundglass opacities likely reflecting mild pulmonary edema. Assessment and Plan - Assessment (1) Atypical chest pain Code(s): R07.89 - Other chest pain Status: Acute - Plan Patient is only taking ASA for anticoagulation post bare metal stent placement. We will add Plavix to ensure patient is completely anticoagulated. Admit to telemetry. Patient is having atypical chest pain, EKG shows no acute process. Troponin mildly elevated, we will treat medically at this time. Continue CHF treatment with diuresis. We will continue to monitor the patient during his hospitalization. The patient was seen and evaluated by Dr. Woods who participated in care, management and decision making. - Attending Attestation Patient seen and examined. I reviewed and agree with the evaluation and plan as presented. His CP is very atypical. Monitor on telemetry with serial enzymes and EKGs. Restart Plavix in addition to aspirin. Continue aggressive risk factor modification.
[2018-04-05] MEDS: Insulin NovoLOG Aspart Correctional Sugar Inj SQ SCH ×2 (16:32→21:38)
[2018-04-05] MEDS ORDERED: Influenza (Quadrivalent) Vaccine 0.5 ML Syringe IM ONE (18:15)
--- NOTE | 2018-04-05 18:33 | ECG ---
Date Performed: 04/05/2018 Time Performed: 07:47:12 PTAGE: 53 years EKG: Sinus rhythm LEFT ANTERIOR FASCICULAR BLOCK POSSIBLE ANTERIOR MYOCARDIAL INFARCTION POSSIBLE INFERIOR MYOCARDIAL INFARCTION MODERATE T-WAVE ABNORMALITY, CONSIDER LATERAL ISCHEMIA ABNORMAL ECG PREVIOUS TRACING : 03/13/2018 23.32 Since the previous tracing, no significant change noted DOCTOR: Luis Felipe Horta Interpretating Date/Time 04/05/2018 18:31:57
[2018-04-05] MEDS: Carvedilol 12.5 MG Tablet PO SCH (21:41)
[2018-04-06 04:10] LABS: Hematocrit 35.9 % (39.0-51.0); Hemoglobin 11.7 gm/dL (13.0-17.0); Mean Corpuscular HGB Conc 32.5 % (32.0-36.0); Mean Corpuscular Hemoglobin 29.1 pg (27.0-34.0); Mean Corpuscular Volume 89.5 fL (80.0-100.0); Mean Platelet Volume 7.8 fL (7.0-11.0); Platelet Count 204 th/mm3 (150-450); Red Blood Count 4.01 mil/mm3 (4.50-5.90); Red Cell Distribution Width 16.4 % (11.6-17.2); White Blood Count 9.4 th/mm3 (4.0-11.0)
[2018-04-06] MEDS: Isosorbide Mononitrate 30 MG ER 24HR Tablet (Imdur) PO SCH (06:13)
[2018-04-06] MEDS: Insulin NovoLOG Aspart Correctional Sugar Inj SQ SCH ×4 (09:29→20:52)
[2018-04-06] MEDS: Carvedilol 12.5 MG Tablet PO SCH ×3 (09:31→20:46)
[2018-04-06] MEDS: amLODIPine 5 MG Tablet PO SCH (09:32)
[2018-04-06] MEDS ORDERED: Morphine Inj 4 MG/ML Vial IV.PUSH PRN ×3 (12:06)
[2018-04-06] MEDS ORDERED: oxyCODONE/Acetaminophen 10/325 Tablet PO PRN (12:06)
[2018-04-06] MEDS ORDERED: Ibuprofen 400 MG Tablet PO PRN (12:06)
[2018-04-06] MEDS ORDERED: Naloxone Inj 0.4 MG/ML Vial IV.PUSH PRN (12:06)
--- NOTE | 2018-04-06 12:10 | P.PNIM ---
Subjective Interval history: 53-year-old black male being admitted for shortness of breath. Patient was in his usual state of health until about 4 days ago and began experiencing coughing, shortness of breath, and posttussive right-sided chest pain. Patient says this is progressed since onset and does have some intermittently productive sputum. Denies any fevers or chills. Thinks that his abdomen has become more distended over the week but denies any lower extremity edema. Denies any fevers or chills. Reports only posttussive emesis but no alycia isolated nausea or vomiting. 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 In the emergency department he was noted to be saturating at about 89% on room air. Chest x-ray was performed which and apparently reviewed which showed very mild pulmonary edema. CT scan was negative for any pulmonary embolism. BNP was around the 300s. Troponin was elevated at 0.4. EKG which I independently reviewed showed no acute changes concerning for ischemia or infarction. Patient was given IV Lasix. White count unremarkable. Patient was discharged from the hospital about 3 weeks ago after having undergone bare-metal stenting to the obtuse marginal for a NSTEMI. Pt reports he 's only taking aspirin for blood thinners. 118 SEEN BY CARDIOLOGY PLAVIX ADDED TO HIS REGIMEN YESTERDAY CONTINUE TO DIURESE AM LABS INCREASE ACTIVITY DW RN AND PT AND CM Add Mucinex, duo nebs, Symbicort Incentive spirometry PT and OT Physical Exam Vital signs: Vital Signs 04/05/18 13:32 04/05/18 16:00 04/05/18 20:00 Temperature 97.4 F L 97.9 F Pulse Rate 64 53 L 73 Respiratory Rate 22 19 20 Blood Pressure 135/72 145/91 H 149/72 H Pulse Oximetry 97 91 L 97 04/06/18 00:00 04/06/18 04:00 04/06/18 08:00 Temperature 98.2 F 97.3 F L 98.1 F Pulse Rate 78 64 75 Respiratory Rate 19 19 22 Blood Pressure 123/77 134/90 128/79 Pulse Oximetry 92 L 92 L 99 04/06/18 09:00 04/06/18 10:10 Temperature 97.4 F L Pulse Rate 62 Respiratory Rate 17 Blood Pressure 144/91 H Pulse Oximetry 89 L 94 L Intake & Output 04/05/18 04/06/18 04/06/18 18:59 06:59 18:59 Intake Total 1000 / 1000 236 / 236 250 / 250 Output Total 400 / 400 2049 600 / 600 Balance 600 / 600 -1814 / -1814 -350 / -350 Weight 103 kg 103.1 kg Intake: IV 250 / 250 Heparin/D5W 25,000 U/250 mL 25, 250 / 250 000 unit In 250 ml @ Per Protocol IV.CONT TITRATE PRN Rx #:[id number] Oral 1000 / 1000 236 / 236 Output: Urine 400 / 400 2049 600 / 600 Other: # Bowel Movements 0 Weight On Admission 103 kg Narrative: VS: afebrile awake alert and oriented x3 talkative and cooperative GENERAL: Well-nourished middle-age black male in no acute distress SKIN: Warm and dry. EYES: No scleral icterus. No injection or drainage. ENT: No nasal bleeding or discharge. CARDIOVASCULAR: Regular rate and rhythm. no murmurs S1-S2 no S3 or S4 RESPIRATORY: No accessory muscle use. Crackles heard bibasilarly GASTROINTESTINAL: Abdomen soft, non-tender, minimal abdominal distention Extremities: No clubbing, cyanosis, or edema. No obvious deformities. MUSCULOSKELETAL: adequate muscle bulk and tone for age and habitus NEUROLOGICAL: Awake and alert. No obvious cranial nerve deficits. No facial droop nor slurred speech noted. PSYCHIATRIC: Appropriate mood and affect; insight and judgment normal. Results - Labs CBC & Chem 7: 04/06/18 03:58 04/05/18 07:40 Laboratory Results - last 24 hr 04/05/18 04/05/18 04/05/18 12:19 13:16 16:29 WBC RBC Hgb Hct MCV MCH MCHC RDW Plt Count MPV PT 12.7 H INR 1.3 APTT 30.9 POC Glucose 106 Troponin I 0.37 H 04/05/18 04/05/18 04/06/18 18:10 20:39 03:58 WBC 9.4 RBC 4.01 L Hgb 11.7 L Hct 35.9 L MCV 89.5 MCH 29.1 MCHC 32.5 RDW 16.4 Plt Count 204 MPV 7.8 PT INR APTT 33.0 H POC Glucose 122 H Troponin I 04/06/18 04/06/18 03:58 07:27 WBC RBC Hgb Hct MCV MCH MCHC RDW Plt Count MPV PT INR APTT 33.8 H POC Glucose 180 H Troponin I - Imaging Chest X-Ray 04/05/18 07:39 CONCLUSION: 1. Cardiomegaly with mild pulmonary vascular congestion. 2. Patchy right lower lung zone airspace disease concerning for developing pneumonia or aspiration in the appropriate clinical setting. Chest CTA 04/05/18 08:16 CONCLUSION: 1. No CT evidence for pulmonary artery embolism as questioned. 2. Cardiomegaly with diffuse groundglass opacities likely reflecting mild pulmonary edema. - Procedures None Assessment and Plan - Plan 53-year-old black male being admitted for shortness of breath. Mild acute hypoxic respiratory failure Shortness of breath Systolic CHF exacerbation, CTA is negative for PE IV Lasix with potassium supplementation, monitor intake and output -Continue home lisinopril and Coreg - wean O2 as tolerated COPD No acute exacerbation, continue home albuterol as needed Add Mucinex twice daily Duo nebs as needed and scheduled Add Mucinex and incentive spirometry Had Symbicort Elevated troponin CAD -recent BMS placement ~ 3 wks ago, taking only aspirin for antiplatelet since then Aspirin, statin, Coreg -We will start heparin drip and consult cardiology, defer decision to start Plavix vs intervention by cardiology Restarted on Plavix by cardiology Continue aspirin and statin and Coreg And diuretic Posttussive chest pain Costochondritis in nature, supportive care Add Mucinex and incentive spirometry Add Symbicort Pain control heparin A.m. labs Code Status: Full code Discussed Condition With: RN and patient and case management Discharge Planning: Once he is at a dry level and diuresed
--- NOTE | 2018-04-06 12:12 | P.PNCA ---
Subjective Interval history: Patient denies any CP, pressure, palpitations, dizziness, edema or SOB. Patient states, he is feeling much better at this time. Medications and Allergies Allergies Allergy/AdvReac Type Severity Reaction Status Date / Time No Known Allergies Allergy Verified 04/05/18 07:24 Home Medications Medication Instructions Recorded Confirmed Type carvedilol [Coreg] 25 mg PO BID 03/13/18 04/05/18 History enalapril maleate [Vasotec] 20 mg PO BID 03/13/18 04/05/18 History glipizide 10 mg PO DAILY 03/13/18 04/05/18 History hydrocodone-acetaminophen [Coxsackie] 1 tab PO Q6H PRN 03/13/18 04/05/18 History pravastatin 80 mg PO HS 03/13/18 04/05/18 History Active Medications: Active Medications Albuterol (Duoneb Neb (Bharti)) 1 ampul NEB Q6HR ALT NEB BHARTI Albuterol (Duoneb Neb (Prn)) 1 ampul NEB Q2HR NEB PRN PRN Reason: SHORTNESS OF BREATH/WHEEZING Amlodipine Besylate (Norvasc) 5 mg PO DAILY [facility] Last Admin: 04/06/18 09:32 Dose: 5 mg Aspirin (Ecotrin) 81 mg PO DAILY [facility] Last Admin: 04/06/18 09:30 Dose: 81 mg Atorvastatin Calcium (Lipitor) 40 mg PO HS [facility] Last Admin: 04/05/18 21:41 Dose: 40 mg Budesonide/Formoterol Fumarate (Symbicort 160/4.5 Mcg Inh) 1 puff INH BID [facility] Carvedilol (Coreg) 25 mg PO BID [facility] Last Admin: 04/06/18 10:21 Dose: 25 mg Clopidogrel Bisulfate (Plavix) 75 mg PO DAILY [facility] Last Admin: 04/06/18 09:30 Dose: 75 mg Dextrose (D50w Vial) 50 ml IV.PUSH UNSCH PRN PRN Reason: PER HYPOGLYCEMIA PROTOCOL Enalapril Maleate (Vasotec) 20 mg PO BID [facility] Last Admin: 04/06/18 09:31 Dose: 20 mg Furosemide (Lasix Inj) 40 mg IV.PUSH BID@0900,1800 [facility] Last Admin: 04/06/18 09:38 Dose: 40 mg Glucagon (Glucagon Inj) 1 mg OTHER PRN PRN PRN Reason: for Hypoglycemia Protocol Guaifenesin (Mucinex Er) 600 mg PO BID [facility] Ibuprofen (Motrin) 400 mg PO Q6HR PRN PRN Reason: PAIN SCALE 1 TO 2 Insulin Aspart (Novolog Insulin Correctional Sugar Inj) 0 unit SQ ACHS [facility]; Protocol Last Admin: 04/06/18 09:29 Dose: 1 unit Isosorbide Mononitrate (Imdur) 30 mg PO DAILY@0700 [facility] Last Admin: 04/06/18 06:13 Dose: 30 mg Morphine Sulfate (Morphine Inj) 2 mg IV.PUSH Q3H PRN PRN Reason: PAIN 3-5; IF UABLE TO TAKE PO Morphine Sulfate (Morphine Inj) 4 mg IV.PUSH Q3H PRN PRN Reason: PAIN 6-10;IF UNABLE TO TAKE PO Morphine Sulfate (Morphine Inj) 4 mg IV.PUSH Q3H PRN PRN Reason: BREAKTHROUGH PAIN Naloxone HCl (Narcan Inj) 0.4 mg IV.PUSH UNSCH PRN PRN Reason: SEE LABEL COMMENTS Nicotine (Habitrol 14 Mg Patch.24 Hr) 1 patch T-DERMAL DAILY [facility] Oxycodone/Acetaminophen (Percocet 10/325 Mg) 1 tab PO Q6H PRN PRN Reason: PAIN SCALE 6 TO 10 Oxycodone/Acetaminophen (Percocet 5/325 Mg) 1 tab PO Q6H PRN PRN Reason: PAIN SCALE 3 TO 5 Patch Removal (Remove Old Patch) 1 each T-DERMAL DAILY [facility] Sodium Chloride (Ns Flush) 2 ml IV.FLUSH UNSCH PRN PRN Reason: FLUSH AFTER USING IV ACCESS Last Admin: 04/05/18 10:36 Dose: 2 ml Sodium Chloride (Ns Flush) 2 ml IV.FLUSH BID [facility] Last Admin: 04/06/18 09:33 Dose: 2 ml Sodium Chloride (Ns Flush) 2 ml IV.FLUSH PRN PRN PRN Reason: FLUSH AFTER USING IV ACCESS Physical Exam Vital signs: Vital Signs 04/05/18 13:32 04/05/18 16:00 04/05/18 20:00 Temperature 97.4 F L 97.9 F Pulse Rate 64 53 L 73 Respiratory Rate 22 19 20 Blood Pressure 135/72 145/91 H 149/72 H Pulse Oximetry 97 91 L 97 04/06/18 00:00 04/06/18 04:00 04/06/18 08:00 Temperature 98.2 F 97.3 F L 98.1 F Pulse Rate 78 64 75 Respiratory Rate 19 19 22 Blood Pressure 123/77 134/90 128/79 Pulse Oximetry 92 L 92 L 99 04/06/18 09:00 04/06/18 10:10 Temperature 97.4 F L Pulse Rate 62 Respiratory Rate 17 Blood Pressure 144/91 H Pulse Oximetry 89 L 94 L Intake & Output 04/05/18 04/06/18 04/06/18 18:59 06:59 18:59 Intake Total 1000 / 1000 236 / 236 250 / 250 Output Total 400 / 400 2049 600 / 600 Balance 600 / 600 -1814 / -1814 -350 / -350 Weight 103 kg 103.1 kg Intake: IV 250 / 250 Heparin/D5W 25,000 U/250 mL 25, 250 / 250 000 unit In 250 ml @ Per Protocol IV.CONT TITRATE PRN Rx #:[id number] Oral 1000 / 1000 236 / 236 Output: Urine 400 / 400 2049 600 / 600 Other: # Bowel Movements 0 Weight On Admission 103 kg - Constitutional no acute distress - Routine HEENT Exam Head: Present: normocephalic Eye: Present: PERRL ENT: Present: mucous membranes moist - Routine Neck Exam Present: full ROM - Routine Respiratory Exam Present: CTA bilaterally - Routine Cardiovascular Exam Present: S1, S2. Absent: murmur, gallop, rubs - Routine Abdominal Exam Present: normoactive bowel sounds - Routine Extremities Exam Present: full ROM, pulses intact, normal capillary refill. Absent: cyanosis, clubbing, edema - Routine Skin Exam Present: intact - Routine Neurological Exam Present: oriented X3 - Detailed Neurological Exam: Coma Scale Eye Opening: Spontaneous Verbal Response: Oriented Motor Response: Obey commands [place] Coma Scale Total: 15 - Routine Psychiatric Exam Present: normal affect Results 04/06/18 03:58 04/05/18 07:40 Cardiac Enzymes 04/05/18 04/05/18 04/05/18 Range/Units 07:40 07:40 13:16 AST 54 H (15-37) U/L Troponin I 0.42 H 0.37 H (0.02-0.05) ng/mL B-Natriuretic Peptide 309 H (0-100) pg/mL Coagulation 04/05/18 04/05/18 04/05/18 Range/Units 07:40 12:19 18:10 PT 12.7 H (9.8-11.6) sec APTT 30.9 33.0 H (23.4-31.7) sec B-Natriuretic Peptide 309 H (0-100) pg/mL 04/06/18 Range/Units 03:58 PT (9.8-11.6) sec APTT 33.8 H (23.4-31.7) sec B-Natriuretic Peptide (0-100) pg/mL CBC 04/05/18 04/06/18 Range/Units 07:40 03:58 WBC 11.1 H 9.4 (4.0-11.0) th/mm3 RBC 3.97 L 4.01 L (4.50-5.90) mil/mm3 Hgb 11.4 L 11.7 L (13.0-17.0) gm/dL Hct 35.8 L 35.9 L (39.0-51.0) % Plt Count 206 204 (150-450) th/mm3 Neut # (Auto) 9.0 H (1.8-7.7) th/mm3 Lymph # (Auto) 1.2 (1.0-4.8) th/mm3 [place] # (Auto) 0.7 (0.0-0.9) th/mm3 Eos # (Auto) 0.1 (0.0-0.4) th/mm3 Baso # (Auto) 0.0 (0.0-0.2) th/mm3 Comprehensive Metabolic Panel 04/05/18 Range/Units 07:40 Sodium 138 (136-145) meq/L Potassium 5.0 (3.5-5.1) meq/L Chloride 105 (98-107) meq/L Carbon Dioxide 28.8 (21.0-32.0) meq/L BUN 11 (7-18) mg/dL Creatinine 1.02 (0.60-1.30) mg/dL Calcium 8.4 L (8.5-10.1) mg/dL AST 54 H (15-37) U/L ALT 41 (12-78) U/L Alkaline Phosphatase 110 (45-117) U/L Total Protein 8.1 (6.4-8.2) g/dL Albumin 3.3 L (3.4-5.0) g/dL Intake and Output 04/05/18 04/06/18 04/06/18 22:59 06:59 14:59 Intake Total 1000 / 1000 236 / 236 250 / 250 Output Total 400 / 400 2049 600 / 600 Balance 600 / 600 -1814 / -1814 -350 / -350 Intake: IV 250 / 250 Heparin/D5W 25,000 U/250 mL 25, 250 / 250 000 unit In 250 ml @ Per Protocol IV.CONT TITRATE PRN Rx #:[id number] Oral 1000 / 1000 236 / 236 Output: Urine 400 / 400 2049 600 / 600 Other: # Bowel Movements 0 Weight 103 kg 103.1 kg Weight On Admission 103 kg - Imaging and Cardiology Imaging: Impressions Chest X-Ray 04/05/18 07:39 CONCLUSION: 1. Cardiomegaly with mild pulmonary vascular congestion. 2. Patchy right lower lung zone airspace disease concerning for developing pneumonia or aspiration in the appropriate clinical setting. Chest CTA 04/05/18 08:16 CONCLUSION: 1. No CT evidence for pulmonary artery embolism as questioned. 2. Cardiomegaly with diffuse groundglass opacities likely reflecting mild pulmonary edema. Assessment and Plan - Assessment (1) Atypical chest pain Code(s): R07.89 - Other chest pain Status: Acute - Plan Patient is being fully anticoagulated at this time, continue ASA and Plavix post recent stent. Continue to monitor on telemetry. No evidence of stent thrombosis. We will continue current cardiac treatment plan and treat medically. Continue CHF treatment including diuresis. We will continue to monitor the patient during his hospitalization. The patient was seen and evaluated by Dr. Woods who participated in care, management and decision making. - Attending Attestation Patient seen and examined. I reviewed and agree with the evaluation and plan as presented. Continue Plavix and aspirin post stent. Continue tx for CHF including diuresis, beta juan carlos, and enalapril. F/u w Dr. Michele after discharge.
[2018-04-06] MEDS: guaiFENesin 600 MG ER Tablet PO SCH ×2 (14:00→20:46)
[2018-04-06] MEDS: Famotidine 20 MG Tablet PO SCH ×2 (14:00→20:46)
[2018-04-06] MEDS: Budesonide-Formoterol 160/4.5 MCG 6 GM Inhaler INH SCH ×2 (15:29→20:53)
[2018-04-07] MEDS: Isosorbide Mononitrate 30 MG ER 24HR Tablet (Imdur) PO SCH (06:14)
[2018-04-07 07:01] VITALS: BP 127/72; RESP 16; TEMP 98.4
[2018-04-07 07:07] LABS: Baso % (Auto) 0.5 % (0.0-2.0); Eos # (Auto) 0.2 th/mm3 (0.0-0.4); Eos % (Auto) 2.2 % (0.0-4.0); Hematocrit 38.3 % (39.0-51.0); Hemoglobin 12.8 gm/dL (13.0-17.0); Lymph # (Auto) 1.2 th/mm3 (1.0-4.8); Lymph % (Auto) 12.1 % (9.0-44.0); Mean Corpuscular HGB Conc 33.5 % (32.0-36.0); Mean Corpuscular Hemoglobin 29.5 pg (27.0-34.0); Mean Platelet Volume 8.1 fL (7.0-11.0); Mono # (Auto) 0.6 th/mm3 (0.0-0.9); Mono % (Auto) 6.4 % (0.0-8.0); Neut # (Auto) 7.9 th/mm3 (1.8-7.7); Neut % (Auto) 78.8 % (16.0-70.0); Platelet Count 209 th/mm3 (150-450); Red Blood Count 4.35 mil/mm3 (4.50-5.90); Red Cell Distribution Width 16.3 % (11.6-17.2)
[2018-04-07 07:32] LABS: Alanine Aminotransferase 30 U/L (12-78); Albumin 3.4 g/dL (3.4-5.0); Anion Gap 5 meq/L (5-15); Aspartate Aminotransferase 14 U/L (15-37); Blood Urea Nitrogen 12 mg/dL (7-18); Calcium 8.7 mg/dL (8.5-10.1); Carbon Dioxide 34.8 meq/L (21.0-32.0); Chloride 99 meq/L (98-107); Glomerular Filtration Rate 86 mL/min (>89); Glucose,Random 116 mg/dL (74-106); Magnesium 2.1 mg/dL (1.5-2.5); Phosphorus 3.5 mg/dL (2.5-4.9); Potassium 3.6 meq/L (3.5-5.1); Sodium 139 meq/L (136-145)
[2018-04-07 07:43] LABS: Alkaline Phosphatase 116 U/L (45-117); Total Protein 8.3 g/dL (6.4-8.2); Triiodothyronine (T3) Free 2.56 pg/mL (2.18-3.98)
[2018-04-07] MEDS: guaiFENesin 600 MG ER Tablet PO SCH (08:36)
[2018-04-07] MEDS: Famotidine 20 MG Tablet PO SCH (08:36)
[2018-04-07] MEDS: Carvedilol 12.5 MG Tablet PO SCH (08:37)
[2018-04-07] MEDS: amLODIPine 5 MG Tablet PO SCH (08:37)
[2018-04-07] MEDS: Budesonide-Formoterol 160/4.5 MCG 6 GM Inhaler INH SCH (08:41)
[2018-04-07 09:02] VITALS: PULSE 54; O2SAT 96
--- NOTE | 2018-04-07 11:06 | P.PNIM ---
Subjective Interval history: 53-year-old black male being admitted for shortness of breath. Patient was in his usual state of health until about 4 days ago and began experiencing coughing, shortness of breath, and posttussive right-sided chest pain. Patient says this is progressed since onset and does have some intermittently productive sputum. Denies any fevers or chills. Thinks that his abdomen has become more distended over the week but denies any lower extremity edema. Denies any fevers or chills. Reports only posttussive emesis but no alycia isolated nausea or vomiting. Patient says he ran out of his Lasix supply about a week ago even though he says he was officially instructed to stop taking Lasix prior to that by his investigation clerk. In the emergency department he was noted to be saturating at about 89% on room air. Chest x-ray was performed which and apparently reviewed which showed very mild pulmonary edema. CT scan was negative for any pulmonary embolism. BNP was around the 300s. Troponin was elevated at 0.4. EKG which I independently reviewed showed no acute changes concerning for ischemia or infarction. Patient was given IV Lasix. White count unremarkable. Patient was discharged from the hospital about 3 weeks ago after having undergone bare-metal stenting to the obtuse marginal for a NSTEMI. Pt reports he 's only taking aspirin for blood thinners. 11-8 SEEN BY CARDIOLOGY PLAVIX ADDED TO HIS REGIMEN YESTERDAY CONTINUE TO DIURESE AM LABS INCREASE ACTIVITY DW RN AND PT AND CM Add Mucinex, duo nebs, Symbicort Incentive spirometry PT and OT 11-9 WANTS TO GO HOME DC TO HOME TODAY STATES IS ON 2 LITERS BY NASAL CANNULA HAS A NEBULIZER AT HOME DC TO HOME TODAY Physical Exam Vital signs: Vital Signs 04/06/18 12:00 04/06/18 15:59 04/06/18 16:00 Temperature 98.1 F 97.1 F L Pulse Rate 74 81 67 Respiratory Rate 19 19 20 Blood Pressure 123/87 123/71 Pulse Oximetry 96 95 04/06/18 20:00 04/06/18 21:15 04/07/18 00:00 Temperature 97.4 F L 98.8 F Pulse Rate 68 55 L 67 Respiratory Rate 17 16 17 Blood Pressure 124/85 118/78 Pulse Oximetry 93 L 95 97 04/07/18 04:00 04/07/18 06:59 04/07/18 09:01 Temperature 97.9 F 98.4 F Pulse Rate 57 L 58 L 54 L Respiratory Rate 16 16 16 Blood Pressure 131/84 127/72 Pulse Oximetry 92 L 94 L 96 Intake & Output 04/06/18 04/07/18 04/07/18 18:59 06:59 18:59 Intake Total 250 / 250 Output Total 600 / 600 Balance -350 / -350 Weight 103 kg Intake: IV 250 / 250 Heparin/D5W 25,000 U/250 mL 25, 250 / 250 000 unit In 250 ml @ Per Protocol IV.CONT TITRATE PRN Rx #:[id number] Output: Urine 600 / 600 Other: # Voids 3 3 Narrative: VS: afebrile awake alert and oriented x3 talkative and cooperative GENERAL: Well-nourished middle-age black male in no acute distress SKIN: Warm and dry. EYES: No scleral icterus. No injection or drainage. ENT: No nasal bleeding or discharge. CARDIOVASCULAR: Regular rate and rhythm. no murmurs S1-S2 no S3 or S4 RESPIRATORY: No accessory muscle use. Crackles heard bibasilarly GASTROINTESTINAL: Abdomen soft, non-tender, minimal abdominal distention Extremities: No clubbing, cyanosis, or edema. No obvious deformities. MUSCULOSKELETAL: adequate muscle bulk and tone for age and habitus NEUROLOGICAL: Awake and alert. No obvious cranial nerve deficits. No facial droop nor slurred speech noted. PSYCHIATRIC: Appropriate mood and affect; insight and judgment normal. Results - Labs CBC & Chem 7: 04/07/18 06:17 04/07/18 06:17 Laboratory Results - last 24 hr 04/06/18 04/06/18 04/06/18 12:17 12:45 16:34 WBC RBC Hgb Hct MCV MCH MCHC RDW Plt Count MPV Neut % (Auto) Lymph % (Auto) [place] % (Auto) Eos % (Auto) Baso % (Auto) Neut # (Auto) Lymph # (Auto) [place] # (Auto) Eos # (Auto) Baso # (Auto) WBC Differential Differential Comment APTT 30.6 Sodium Potassium Chloride Carbon Dioxide Anion Gap BUN Creatinine Estimated GFR POC Glucose 141 H 184 H Random Glucose Calcium Phosphorus Magnesium Total Bilirubin AST ALT Alkaline Phosphatase Total Protein Albumin TSH Free T3 04/06/18 04/07/18 04/07/18 20:45 06:17 06:17 WBC 10.0 RBC 4.35 L Hgb 12.8 L Hct 38.3 L MCV 88.0 MCH 29.5 MCHC 33.5 RDW 16.3 Plt Count 209 MPV 8.1 Neut % (Auto) 78.8 H Lymph % (Auto) 12.1 [place] % (Auto) 6.4 Eos % (Auto) 2.2 Baso % (Auto) 0.5 Neut # (Auto) 7.9 H Lymph # (Auto) 1.2 [place] # (Auto) 0.6 Eos # (Auto) 0.2 Baso # (Auto) 0.0 WBC Differential . Differential Comment Auto diff final APTT Sodium 139 Potassium 3.6 D Chloride 99 Carbon Dioxide 34.8 H Anion Gap 5 BUN 12 Creatinine 1.08 Estimated GFR 86 L POC Glucose 201 H Random Glucose 116 H Calcium 8.7 Phosphorus 3.5 Magnesium 2.1 Total Bilirubin 1.4 H AST 14 L ALT 30 Alkaline Phosphatase 116 Total Protein 8.3 H Albumin 3.4 TSH 1.680 Free T3 2.56 04/07/18 07:54 WBC RBC Hgb Hct MCV MCH MCHC RDW Plt Count MPV Neut % (Auto) Lymph % (Auto) [place] % (Auto) Eos % (Auto) Baso % (Auto) Neut # (Auto) Lymph # (Auto) [place] # (Auto) Eos # (Auto) Baso # (Auto) WBC Differential Differential Comment APTT Sodium Potassium Chloride Carbon Dioxide Anion Gap BUN Creatinine Estimated GFR POC Glucose 117 H Random Glucose Calcium Phosphorus Magnesium Total Bilirubin AST ALT Alkaline Phosphatase Total Protein Albumin TSH Free T3 - Imaging ITS Impressions Chest X-Ray 04/05/18 07:39 CONCLUSION: 1. Cardiomegaly with mild pulmonary vascular congestion. 2. Patchy right lower lung zone airspace disease concerning for developing pneumonia or aspiration in the appropriate clinical setting. Chest CTA 04/05/18 08:16 CONCLUSION: 1. No CT evidence for pulmonary artery embolism as questioned. 2. Cardiomegaly with diffuse groundglass opacities likely reflecting mild pulmonary edema. - Procedures None Assessment and Plan - Plan 53-year-old black male being admitted for shortness of breath. Mild acute hypoxic respiratory failure Shortness of breath Systolic CHF exacerbation, CTA is negative for PE IV Lasix with potassium supplementation, monitor intake and output -Continue home lisinopril and Coreg - wean O2 as tolerated COPD No acute exacerbation, continue home albuterol as needed Add Mucinex twice daily Duo nebs as needed and scheduled Add Mucinex and incentive spirometry Had Symbicort Elevated troponin CAD -recent BMS placement ~ 3 wks ago, taking only aspirin for antiplatelet since then Aspirin, statin, Coreg -We will start heparin drip and consult cardiology, defer decision to start Plavix vs intervention by cardiology Restarted on Plavix by cardiology Continue aspirin and statin and Coreg And diuretic Posttussive chest pain Costochondritis in nature, supportive care Add Mucinex and incentive spirometry Add Symbicort Pain control heparin DC TO HOME TODAY RX WRITTEN FOLLOW UP WITH PCP Code Status: FULL CODE Discussed Condition With: RN AND PT AND CM Discharge Planning: DC TO HOME
--- NOTE | 2018-04-07 11:21 | P.DS ---
Date of admission: 04/05/18 11:44 Primary care physician: Tanika Otero MD Attending physician on discharge: Brandin Olvera Anticipated date of discharge: 04/07/18 Brief History from admission: 53-year-old black male being admitted for shortness of breath. Patient was in his usual state of health until about 4 days ago and began experiencing coughing, shortness of breath, and posttussive right-sided chest pain. Patient says this is progressed since onset and does have some intermittently productive sputum. Denies any fevers or chills. Thinks that his abdomen has become more distended over the week but denies any lower extremity edema. Denies any fevers or chills. Reports only posttussive emesis but no alycia isolated nausea or vomiting. Patient says he ran out of his Lasix supply about a week ago even though he says he was officially instructed to stop taking Lasix prior to that by his security engineer. In the emergency department he was noted to be saturating at about 89% on room air. Chest x-ray was performed which and apparently reviewed which showed very mild pulmonary edema. CT scan was negative for any pulmonary embolism. BNP was around the 300s. Troponin was elevated at 0.4. EKG which I independently reviewed showed no acute changes concerning for ischemia or infarction. Patient was given IV Lasix. White count unremarkable. Patient was discharged from the hospital about 3 weeks ago after having undergone bare-metal stenting to the obtuse marginal for a NSTEMI. Pt reports he 's only taking aspirin for blood thinners. Patient update on day of discharge: 53-year-old black male being admitted for shortness of breath. Patient was in his usual state of health until about 4 days ago and began experiencing coughing, shortness of breath, and posttussive right-sided chest pain. Patient says this is progressed since onset and does have some intermittently productive sputum. Denies any fevers or chills. Thinks that his abdomen has become more distended over the week but denies any lower extremity edema. Denies any fevers or chills. Reports only posttussive emesis but no alycia isolated nausea or vomiting. Patient says he ran out of his Lasix supply about a week ago even though he says he was officially instructed to stop taking Lasix prior to that by his security engineer. In the emergency department he was noted to be saturating at about 89% on room air. Chest x-ray was performed which and apparently reviewed which showed very mild pulmonary edema. CT scan was negative for any pulmonary embolism. BNP was around the 300s. Troponin was elevated at 0.4. EKG which I independently reviewed showed no acute changes concerning for ischemia or infarction. Patient was given IV Lasix. White count unremarkable. Patient was discharged from the hospital about 3 weeks ago after having undergone bare-metal stenting to the obtuse marginal for a NSTEMI. Pt reports he 's only taking aspirin for blood thinners. 04-06 SEEN BY CARDIOLOGY PLAVIX ADDED TO HIS REGIMEN YESTERDAY CONTINUE TO DIURESE AM LABS INCREASE ACTIVITY DW RN AND PT AND CM Add Mucinex, duo nebs, Symbicort Incentive spirometry PT and OT 04-07 WANTS TO GO HOME DC TO HOME TODAY STATES IS ON 2 LITERS BY NASAL CANNULA HAS A NEBULIZER AT HOME DC TO HOME TODAY DS: Diagnosis - Discharge Diagnosis (1) Acute exacerbation of CHF (congestive heart failure) Status: Acute (2) Atypical chest pain Status: Acute (3) Chest pain Status: Acute (4) Hypoxia Status: Acute DS: Medications - Discharge Medications Prescriptions: amlodipine 5 mg PO DAILY #30 tab aspirin [Aspir-81] 81 mg PO DAILY #30 tab atorvastatin 40 mg PO HS #30 tab budesonide-formoterol [Symbicort] 1 puff INH BID #1 inh carvedilol [Coreg] 25 mg PO BID #60 tab clopidogrel [Plavix] 75 mg PO DAILY #30 tab enalapril maleate [Vasotec] 20 mg PO BID #60 tab famotidine 20 mg PO BID #60 tab furosemide [Lasix] 40 mg PO BID #60 tab glipizide 10 mg PO DAILY #30 tab guaifenesin [Mucinex] 600 mg PO BID #60 tab ipratropium-albuterol 1 amp NEB Q6HR ALT NEB #180 amp isosorbide mononitrate 30 mg PO DAILY@0700 #30 tab nicotine 1 patch TRANSDERMAL DAILY #30 ea potassium chloride 20 meq PO BID #60 tab prednisone 1 pack PO PER PKG DIR #1 each DS: Summary Hospital Course: 53-year-old black male being admitted for shortness of breath. Patient was in his usual state of health until about 4 days ago and began experiencing coughing, shortness of breath, and posttussive right-sided chest pain. Patient says this is progressed since onset and does have some intermittently productive sputum. Denies any fevers or chills. Thinks that his abdomen has become more distended over the week but denies any lower extremity edema. Denies any fevers or chills. Reports only posttussive emesis but no alycia isolated nausea or vomiting. Patient says he ran out of his Lasix supply about a week ago even though he says he was officially instructed to stop taking Lasix prior to that by his security engineer. In the emergency department he was noted to be saturating at about 89% on room air. Chest x-ray was performed which and apparently reviewed which showed very mild pulmonary edema. CT scan was negative for any pulmonary embolism. BNP was around the 300s. Troponin was elevated at 0.4. EKG which I independently reviewed showed no acute changes concerning for ischemia or infarction. Patient was given IV Lasix. White count unremarkable. Patient was discharged from the hospital about 3 weeks ago after having undergone bare-metal stenting to the obtuse marginal for a NSTEMI. Pt reports he 's only taking aspirin for blood thinners. 11-8 SEEN BY CARDIOLOGY PLAVIX ADDED TO HIS REGIMEN YESTERDAY CONTINUE TO DIURESE AM LABS INCREASE ACTIVITY DW RN AND PT AND CM Add Mucinex, duo nebs, Symbicort Incentive spirometry PT and OT 11-9 WANTS TO GO HOME DC TO HOME TODAY STATES IS ON 2 LITERS BY NASAL CANNULA HAS A NEBULIZER AT HOME DC TO HOME TODAY - Time Spent with Patient Total time spent providing and/or coordinating discharge services: Greater than 30 minutes - Quality: VTE Deep Vein Thrombosis/Pulmonary Embolism Present on Admission: No Exam Vital signs: Vital Signs 04/06/18 12:00 04/06/18 15:59 04/06/18 16:00 Temperature 98.1 F 97.1 F L Pulse Rate 74 81 67 Respiratory Rate 19 19 20 Blood Pressure 123/87 123/71 Pulse Oximetry 96 95 04/06/18 20:00 04/06/18 21:15 04/07/18 00:00 Temperature 97.4 F L 98.8 F Pulse Rate 68 55 L 67 Respiratory Rate 17 16 17 Blood Pressure 124/85 118/78 Pulse Oximetry 93 L 95 97 04/07/18 04:00 04/07/18 06:59 04/07/18 09:01 Temperature 97.9 F 98.4 F Pulse Rate 57 L 58 L 54 L Respiratory Rate 16 16 16 Blood Pressure 131/84 127/72 Pulse Oximetry 92 L 94 L 96 Intake & Output 04/06/18 04/07/18 04/07/18 18:59 06:59 18:59 Intake Total 250 / 250 Output Total 600 / 600 Balance -350 / -350 Weight 103 kg Intake: IV 250 / 250 Heparin/D5W 25,000 U/250 mL 25, 250 / 250 000 unit In 250 ml @ Per Protocol IV.CONT TITRATE PRN Rx #:[id number] Output: Urine 600 / 600 Other: # Voids 3 3 Narrative: VS: afebrile awake alert and oriented x3 talkative and cooperative GENERAL: Well-nourished middle-age black male in no acute distress SKIN: Warm and dry. EYES: No scleral icterus. No injection or drainage. ENT: No nasal bleeding or discharge. CARDIOVASCULAR: Regular rate and rhythm. no murmurs S1-S2 no S3 or S4 RESPIRATORY: No accessory muscle use. Crackles heard bibasilarly GASTROINTESTINAL: Abdomen soft, non-tender, minimal abdominal distention Extremities: No clubbing, cyanosis, or edema. No obvious deformities. MUSCULOSKELETAL: adequate muscle bulk and tone for age and habitus NEUROLOGICAL: Awake and alert. No obvious cranial nerve deficits. No facial droop nor slurred speech noted. PSYCHIATRIC: Appropriate mood and affect; insight and judgment normal. Results Procedures completed during hospitalization: None Completed studies during hospitalization: Laboratory Results WBC 10.0 th/mm3 (4.0-11.0) 04/07/18 06:17 RBC 4.35 mil/mm3 (4.50-5.90) L 04/07/18 06:17 Hgb 12.8 gm/dL (13.0-17.0) L 04/07/18 06:17 Hct 38.3 % (39.0-51.0) L 04/07/18 06:17 MCV 88.0 fL (80.0-100.0) 04/07/18 06:17 MCH 29.5 pg (27.0-34.0) 04/07/18 06:17 MCHC 33.5 % (32.0-36.0) 04/07/18 06:17 RDW 16.3 % (11.6-17.2) 04/07/18 06:17 Plt Count 209 th/mm3 (150-450) 04/07/18 06:17 MPV 8.1 fL (7.0-11.0) 04/07/18 06:17 Prelim Diff (Auto) Slide review pending 04/05/18 07:40 Neut % (Auto) 78.8 % (16.0-70.0) H 04/07/18 06:17 Lymph % (Auto) 12.1 % (9.0-44.0) 04/07/18 06:17 [place] % (Auto) 6.4 % (0.0-8.0) 04/07/18 06:17 Eos % (Auto) 2.2 % (0.0-4.0) 04/07/18 06:17 Baso % (Auto) 0.5 % (0.0-2.0) 04/07/18 06:17 Neut # (Auto) 7.9 th/mm3 (1.8-7.7) H 04/07/18 06:17 Lymph # (Auto) 1.2 th/mm3 (1.0-4.8) 04/07/18 06:17 [place] # (Auto) 0.6 th/mm3 (0.0-0.9) 04/07/18 06:17 Eos # (Auto) 0.2 th/mm3 (0.0-0.4) 04/07/18 06:17 Baso # (Auto) 0.0 th/mm3 (0.0-0.2) 04/07/18 06:17 WBC Differential . 04/07/18 06:17 Diff Scan Auto diff confirmed 04/05/18 07:40 Differential Comment Auto diff final 04/07/18 06:17 Platelet Estimate Normal (Normal) 04/05/18 07:40 Platelet Morphology Normal (Normal) 04/05/18 07:40 PT 12.7 sec (9.8-11.6) H 04/05/18 12:19 INR 1.3 Ratio 04/05/18 12:19 APTT 30.6 sec (23.4-31.7) 04/06/18 12:45 D-Dimer Quant (PE/DVT) 0.65 mg/L FEU (0.00-0.50) H 04/05/18 08:28 Sodium 139 meq/L (136-145) 04/07/18 06:17 Potassium 3.6 meq/L (3.5-5.1) D 04/07/18 06:17 Chloride 99 meq/L (98-107) 04/07/18 06:17 Carbon Dioxide 34.8 meq/L (21.0-32.0) H 04/07/18 06:17 Anion Gap 5 meq/L (5-15) 04/07/18 06:17 BUN 12 mg/dL (7-18) 04/07/18 06:17 Creatinine 1.08 mg/dL (0.60-1.30) 04/07/18 06:17 Estimated GFR 86 mL/min (>89) L 04/07/18 06:17 POC Glucose 117 mg/dl (68-110) H 04/07/18 07:54 Random Glucose 116 mg/dL (74-106) H 04/07/18 06:17 Calcium 8.7 mg/dL (8.5-10.1) 04/07/18 06:17 Phosphorus 3.5 mg/dL (2.5-4.9) 04/07/18 06:17 Magnesium 2.1 mg/dL (1.5-2.5) 04/07/18 06:17 Total Bilirubin 1.4 mg/dL (0.2-1.0) H 04/07/18 06:17 AST 14 U/L (15-37) L 04/07/18 06:17 ALT 30 U/L (12-78) 04/07/18 06:17 Alkaline Phosphatase 116 U/L (45-117) 04/07/18 06:17 Troponin I 0.37 ng/mL (0.02-0.05) H 04/05/18 13:16 B-Natriuretic Peptide 309 pg/mL (0-100) H 04/05/18 07:40 Total Protein 8.3 g/dL (6.4-8.2) H 04/07/18 06:17 Albumin 3.4 g/dL (3.4-5.0) 04/07/18 06:17 TSH 1.680 uIU/mL (0.358-3.740) 04/07/18 06:17 Free T3 2.56 pg/mL (2.18-3.98) 04/07/18 06:17 Impressions Chest X-Ray 04/05/18 07:39 CONCLUSION: 1. Cardiomegaly with mild pulmonary vascular congestion. 2. Patchy right lower lung zone airspace disease concerning for developing pneumonia or aspiration in the appropriate clinical setting. Chest CTA 04/05/18 08:16 CONCLUSION: 1. No CT evidence for pulmonary artery embolism as questioned. 2. Cardiomegaly with diffuse groundglass opacities likely reflecting mild pulmonary edema. Labs on day of discharge: Labs from last 24 hours 04/07/18 04/07/18 04/07/18 07:54 06:17 06:17 WBC RBC Hgb Hct MCV MCH MCHC RDW Plt Count MPV Neut % (Auto) Lymph % (Auto) [place] % (Auto) Eos % (Auto) Baso % (Auto) Neut # (Auto) Lymph # (Auto) [place] # (Auto) Eos # (Auto) Baso # (Auto) WBC Differential Differential Comment APTT Sodium 139 Potassium 3.6 D Chloride 99 Carbon Dioxide 34.8 H Anion Gap 5 BUN 12 Creatinine 1.08 Estimated GFR 86 L POC Glucose 117 H Random Glucose 116 H Hemoglobin A1c Pending Calcium 8.7 Phosphorus 3.5 Magnesium 2.1 Total Bilirubin 1.4 H AST 14 L ALT 30 Alkaline Phosphatase 116 Total Protein 8.3 H Albumin 3.4 TSH 1.680 Free T3 2.56 04/07/18 04/06/18 04/06/18 06:17 20:45 16:34 WBC 10.0 RBC 4.35 L Hgb 12.8 L Hct 38.3 L MCV 88.0 MCH 29.5 MCHC 33.5 RDW 16.3 Plt Count 209 MPV 8.1 Neut % (Auto) 78.8 H Lymph % (Auto) 12.1 [place] % (Auto) 6.4 Eos % (Auto) 2.2 Baso % (Auto) 0.5 Neut # (Auto) 7.9 H Lymph # (Auto) 1.2 [place] # (Auto) 0.6 Eos # (Auto) 0.2 Baso # (Auto) 0.0 WBC Differential . Differential Comment Auto diff final APTT Sodium Potassium Chloride Carbon Dioxide Anion Gap BUN Creatinine Estimated GFR POC Glucose 201 H 184 H Random Glucose Hemoglobin A1c Calcium Phosphorus Magnesium Total Bilirubin AST ALT Alkaline Phosphatase Total Protein Albumin TSH Free T3 04/06/18 04/06/18 12:45 12:17 WBC RBC Hgb Hct MCV MCH MCHC RDW Plt Count MPV Neut % (Auto) Lymph % (Auto) [place] % (Auto) Eos % (Auto) Baso % (Auto) Neut # (Auto) Lymph # (Auto) [place] # (Auto) Eos # (Auto) Baso # (Auto) WBC Differential Differential Comment APTT 30.6 Sodium Potassium Chloride Carbon Dioxide Anion Gap BUN Creatinine Estimated GFR POC Glucose 141 H Random Glucose Hemoglobin A1c Calcium Phosphorus Magnesium Total Bilirubin AST ALT Alkaline Phosphatase Total Protein Albumin TSH Free T3 - Impressions ITS Impressions Chest X-Ray 04/05/18 07:39 CONCLUSION: 1. Cardiomegaly with mild pulmonary vascular congestion. 2. Patchy right lower lung zone airspace disease concerning for developing pneumonia or aspiration in the appropriate clinical setting. Chest CTA 04/05/18 08:16 CONCLUSION: 1. No CT evidence for pulmonary artery embolism as questioned. 2. Cardiomegaly with diffuse groundglass opacities likely reflecting mild pulmonary edema. Discharge Plan - Discharge Disposition Patient Disposition: 01 Discharge Home - Discharge Condition Condition: Good - Discharge Order Discharge Orders: Discharge Order (Routine); Ordered 04/07/18 Ordered By: Brandin Olvera - Discharge Details Anticipated Discharge Date: 04/07/18 Discharge Comment: DC TO HOME TODAY - Physicians Team Primary Care Provider: Tanika Otero Attending Provider: Brandin Olvera Other Providers: Adri Woods MD ; [employer],Insurance
--- NOTE | 2018-04-07 11:53 | P.PNCA ---
Subjective Interval history: Patient up walking around the room waiting on discharge. Patient denies any CP, pressure, palpitations, dizziness, edema or SOB. Patient states that he feels great and is ready to go home. Medications and Allergies Allergies Allergy/AdvReac Type Severity Reaction Status Date / Time No Known Allergies Allergy Verified 04/05/18 07:24 Active Medications: Active Medications Albuterol (Duoneb Neb (Bharti)) 1 ampul NEB Q6HR ALT NEB [facility] Last Admin: 04/07/18 09:00 Dose: 1 ampul Albuterol (Duoneb Neb (Prn)) 1 ampul NEB Q2HR NEB PRN PRN Reason: SHORTNESS OF BREATH/WHEEZING Amlodipine Besylate (Norvasc) 5 mg PO DAILY [facility] Last Admin: 04/07/18 08:37 Dose: 5 mg Aspirin (Ecotrin) 81 mg PO DAILY [facility] Last Admin: 04/07/18 08:37 Dose: 81 mg Atorvastatin Calcium (Lipitor) 40 mg PO HS [facility] Last Admin: 04/06/18 20:46 Dose: 40 mg Budesonide/Formoterol Fumarate (Symbicort 160/4.5 Mcg Inh) 1 puff INH BID [facility] Last Admin: 04/07/18 08:41 Dose: 1 puff Carvedilol (Coreg) 25 mg PO BID [facility] Last Admin: 04/07/18 08:37 Dose: 25 mg Clopidogrel Bisulfate (Plavix) 75 mg PO DAILY [facility] Last Admin: 04/07/18 08:36 Dose: 75 mg Dextrose (D50w Vial) 50 ml IV.PUSH UNSCH PRN PRN Reason: PER HYPOGLYCEMIA PROTOCOL Enalapril Maleate (Vasotec) 20 mg PO BID [facility] Last Admin: 04/07/18 08:36 Dose: 20 mg Famotidine (Pepcid) 20 mg PO BID [facility] Last Admin: 04/07/18 08:36 Dose: 20 mg Furosemide (Lasix Inj) 40 mg IV.PUSH BID@0900,1800 [facility] Last Admin: 04/07/18 08:40 Dose: 40 mg Glucagon (Glucagon Inj) 1 mg OTHER PRN PRN PRN Reason: for Hypoglycemia Protocol Guaifenesin (Mucinex Er) 600 mg PO BID [facility] Last Admin: 04/07/18 08:36 Dose: 600 mg Ibuprofen (Motrin) 400 mg PO Q6HR PRN PRN Reason: PAIN SCALE 1 TO 2 Insulin Aspart (Novolog Insulin Correctional Sugar Inj) 0 unit SQ ACHS [facility]; Protocol Last Admin: 04/06/18 20:52 Dose: 3 unit Isosorbide Mononitrate (Imdur) 30 mg PO DAILY@0700 [facility] Last Admin: 04/07/18 06:14 Dose: 30 mg Morphine Sulfate (Morphine Inj) 2 mg IV.PUSH Q3H PRN PRN Reason: PAIN 3-5; IF UABLE TO TAKE PO Morphine Sulfate (Morphine Inj) 4 mg IV.PUSH Q3H PRN PRN Reason: PAIN 6-10;IF UNABLE TO TAKE PO Morphine Sulfate (Morphine Inj) 4 mg IV.PUSH Q3H PRN PRN Reason: BREAKTHROUGH PAIN Naloxone HCl (Narcan Inj) 0.4 mg IV.PUSH UNSCH PRN PRN Reason: SEE LABEL COMMENTS Nicotine (Habitrol 14 Mg Patch.24 Hr) 1 patch T-DERMAL DAILY [facility] Last Admin: 04/07/18 08:36 Dose: 1 patch Oxycodone/Acetaminophen (Percocet 10/325 Mg) 1 tab PO Q6H PRN PRN Reason: PAIN SCALE 6 TO 10 Oxycodone/Acetaminophen (Percocet 5/325 Mg) 1 tab PO Q6H PRN PRN Reason: PAIN SCALE 3 TO 5 Patch Removal (Remove Old Patch) 1 each T-DERMAL DAILY [facility] Last Admin: 04/07/18 08:40 Dose: 1 each Sodium Chloride (Ns Flush) 2 ml IV.FLUSH UNSCH PRN PRN Reason: FLUSH AFTER USING IV ACCESS Last Admin: 04/05/18 10:36 Dose: 2 ml Sodium Chloride (Ns Flush) 2 ml IV.FLUSH BID [facility] Last Admin: 04/07/18 08:40 Dose: 2 ml Sodium Chloride (Ns Flush) 2 ml IV.FLUSH PRN PRN PRN Reason: FLUSH AFTER USING IV ACCESS Physical Exam Vital signs: Vital Signs 04/06/18 12:00 04/06/18 15:59 04/06/18 16:00 Temperature 98.1 F 97.1 F L Pulse Rate 74 81 67 Respiratory Rate 19 19 20 Blood Pressure 123/87 123/71 Pulse Oximetry 96 95 04/06/18 20:00 04/06/18 21:15 04/07/18 00:00 Temperature 97.4 F L 98.8 F Pulse Rate 68 55 L 67 Respiratory Rate 17 16 17 Blood Pressure 124/85 118/78 Pulse Oximetry 93 L 95 97 04/07/18 04:00 04/07/18 06:59 04/07/18 09:01 Temperature 97.9 F 98.4 F Pulse Rate 57 L 58 L 54 L Respiratory Rate 16 16 16 Blood Pressure 131/84 127/72 Pulse Oximetry 92 L 94 L 96 Intake & Output 04/06/18 04/07/18 04/07/18 18:59 06:59 18:59 Intake Total 250 / 250 Output Total 600 / 600 Balance -350 / -350 Weight 103 kg Intake: IV 250 / 250 Heparin/D5W 25,000 U/250 mL 25, 250 / 250 000 unit In 250 ml @ Per Protocol IV.CONT TITRATE PRN Rx #:[id number] Output: Urine 600 / 600 Other: # Voids 3 3 - Constitutional no acute distress - Routine HEENT Exam Head: Present: normocephalic Eye: Present: PERRL ENT: Present: mucous membranes moist - Routine Neck Exam Present: full ROM - Routine Respiratory Exam Present: CTA bilaterally - Routine Cardiovascular Exam Present: S1, S2, bradycardia. Absent: murmur, gallop Comments: mild SB - Routine Abdominal Exam Present: normoactive bowel sounds - Routine Extremities Exam Present: full ROM, pulses intact, normal capillary refill. Absent: cyanosis, clubbing, edema - Routine Skin Exam Present: intact - Routine Neurological Exam Present: oriented X3 - Detailed Neurological Exam: Coma Scale Eye Opening: Spontaneous Verbal Response: Oriented Motor Response: Obey commands Joseluis Coma Scale Total: 15 - Routine Psychiatric Exam Present: normal affect Results 04/07/18 06:17 04/07/18 06:17 Cardiac Enzymes 04/05/18 04/07/18 Range/Units 13:16 06:17 AST 14 L (15-37) U/L Troponin I 0.37 H (0.02-0.05) ng/mL Coagulation 04/05/18 04/05/18 04/06/18 Range/Units 12:19 18:10 03:58 PT 12.7 H (9.8-11.6) sec APTT 30.9 33.0 H 33.8 H (23.4-31.7) sec 04/06/18 Range/Units 12:45 PT (9.8-11.6) sec APTT 30.6 (23.4-31.7) sec CBC 04/06/18 04/07/18 Range/Units 03:58 06:17 WBC 9.4 10.0 (4.0-11.0) th/mm3 RBC 4.01 L 4.35 L (4.50-5.90) mil/mm3 Hgb 11.7 L 12.8 L (13.0-17.0) gm/dL Hct 35.9 L 38.3 L (39.0-51.0) % Plt Count 204 209 (150-450) th/mm3 Neut # (Auto) 7.9 H (1.8-7.7) th/mm3 Lymph # (Auto) 1.2 (1.0-4.8) th/mm3 [place] # (Auto) 0.6 (0.0-0.9) th/mm3 Eos # (Auto) 0.2 (0.0-0.4) th/mm3 Baso # (Auto) 0.0 (0.0-0.2) th/mm3 Comprehensive Metabolic Panel 04/07/18 Range/Units 06:17 Sodium 139 (136-145) meq/L Potassium 3.6 D (3.5-5.1) meq/L Chloride 99 (98-107) meq/L Carbon Dioxide 34.8 H (21.0-32.0) meq/L BUN 12 (7-18) mg/dL Creatinine 1.08 (0.60-1.30) mg/dL Calcium 8.7 (8.5-10.1) mg/dL AST 14 L (15-37) U/L ALT 30 (12-78) U/L Alkaline Phosphatase 116 (45-117) U/L Total Protein 8.3 H (6.4-8.2) g/dL Albumin 3.4 (3.4-5.0) g/dL Intake and Output 04/06/18 04/07/18 04/07/18 22:59 06:59 14:59 Other: # Voids 3 3 Weight 103 kg Assessment and Plan - Assessment (1) Atypical chest pain Code(s): R07.89 - Other chest pain Status: Acute - Plan Patient is being discharged home today. Rx's given for Plavix and ASA. Patient instructed on the importance of continuing these medications for anticoagulation after recent stent placement to decrease the chance of stent thrombosis. Patient verbalized understanding. Patient instructed on the importance of continuing all his current cardiac medications including the diuretic. Rx's are in the discharge package. Patient cleared for discharge from a cardiac standpoint. The patient was seen and evaluated by Dr. Woods who participated in care, management and decision making. - Attending Attestation Patient seen and examined. I reviewed and agree with the evaluation and plan as presented. He remains stable from cardiac standpoint. Continue Plavix and ASA post recent stent. DC home. 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
[2018-04-07] MEDS: Insulin NovoLOG Aspart Correctional Sugar Inj SQ SCH (12:32)
[2018-04-07 16:38] LABS: Hemoglobin A1c 5.9 % (4.3-6.0)
== END 2018-04-07 13:40 | disposition home or self-care (01) ==
LOC: NEPE 07:19 → NEDA 11:44 → N07 15:21
PROVIDERS: ADMIT Hospitalist; ATTEND Hospitalist

== ENCOUNTER 2018-05-09 02:19 | Inpatient (IN) ==
--- NOTE | 2018-05-09 03:09 | ED ---
HPI General Chief complaint: Chest Pain Stated complaint: chest pain Time Seen by Provider: 05/09/18 02:30 Source: patient Limitations: no limitations History of Present Illness HPI narrative: The patient is a 53 year old male who presents to the [facility] emergency department with a history of chest pain that he reports is been coming and going since the onset at 11 PM. The patient reports that he has a history of myocardial infarction most recently in the past on April 05, 2018 status post stent placement at that time. In total he has had 4 stents placed. The patient reports that the pain at times will last up to 30 minutes of the longest. He reports that the pain is sharp in character starts in the center of his chest and radiates to the left shoulder and down the arm causing left arm tingling. He reports having associated shortness of breath, nausea, and vomiting. He reports that he is vomited 2 times prior to arrival. He also reports having diarrhea since yesterday4 times. The patient reports that he did take his low-dose aspirin and Plavix today. The patient reports that he last used cocaine 2 days ago. He reports that he does smoke 1 pack of cigarettes daily. On review of systems otherwise, the patient denies having any known recent fevers, cough, congestion, neck pain, abdominal pain, urinary symptoms, or neurologic symptoms. Related Data Previous Rx's Medication Instructions Recorded amlodipine 5 mg PO DAILY #30 tab 04/07/18 aspirin [Aspir-81] 81 mg PO DAILY #30 tab 04/07/18 atorvastatin 40 mg PO HS #30 tab 04/07/18 budesonide-formoterol [Symbicort] 1 puff INH BID #1 inh 04/07/18 carvedilol [Coreg] 25 mg PO BID #60 tab 04/07/18 clopidogrel [Plavix] 75 mg PO DAILY #30 tab 04/07/18 enalapril maleate [Vasotec] 20 mg PO BID #60 tab 04/07/18 famotidine 20 mg PO BID #60 tab 04/07/18 furosemide [Lasix] 40 mg PO BID #60 tab 04/07/18 glipizide 10 mg PO DAILY #30 tab 04/07/18 guaifenesin [Mucinex] 600 mg PO BID #60 tab 04/07/18 ipratropium-albuterol 1 amp NEB Q6HR ALT NEB #180 amp 04/07/18 isosorbide mononitrate 30 mg PO DAILY@0700 #30 tab 04/07/18 nicotine 1 patch TRANSDERMAL DAILY #30 ea 04/07/18 potassium chloride 20 meq PO BID #60 tab 04/07/18 prednisone 1 pack PO PER PKG DIR #1 each 04/07/18 Allergies Allergy/AdvReac Type Severity Reaction Status Date / Time No Known Allergies Allergy Verified 05/09/18 02:27 Review of Systems ROS: all other systems reviewed are negative [facility] Medical History Medical History Bipolar disorder (Acute) COPD (chronic obstructive pulmonary disease) (Acute) Depression (Acute) Diabetes (Acute) Heart disease (Acute) Hypercholesteremia (Acute) Hypertension (Acute) Myocardial infarct (Acute) Schizophrenia (Acute) Smoker (Acute) Surgical History Surgical History History of appendectomy (Acute) History of heart artery stent (Acute) Family History Family History Other Diabetes Social History Social History Substance History: Active Abuse Second Hand Smoke Exposure: No Smoking Status: Current every day smoker Tobacco Type: Cigarettes Packs Per Day: 1 Cigarettes Per Day: 20.0 Years Smoked: 30 Pack-Years: 30.00 How Often Do You Have a Drink Containing Alcohol: Never Recent Travel in [facility] within the Last 8 Weeks: No Recent Out of Country Travel within the Last 8 Weeks: No Substance Abuse Detail Crack/Cocaine: Substance Use Status: Early Remission Route Used Substance Abuse: Inhalation Reason for Use: Feels Good, Get High and Socialization Immunization History Tetanus Immunization: <5 Years Exam Const General: cooperative, no acute distress and well developed Nutritional Appearance: well nourished Orientation: alert, awake and oriented x3 HENMT Head: normocephalic and atraumatic Nose: no nasal discharge and no epistaxis Mouth: moist mucous membranes Eyes Sclera: normal sclerae Pupils: PERRL Neck Neck: trachea midline and no JVD Resp Effort & Inspection: no use of accessory muscles Auscultation: clear to auscultation bilaterally Cardio Rate: regular rate Rhythm: regular rhythm Heart Sounds: no murmurs GI Inspection: non-distended Palpation: soft, no hepatosplenomegaly and nontender Back/Spine/Pelvis Back: no CVA tenderness Skin General: dry skin (warm) Neuro General: alert, awake, oriented x3 and other (Grossly nonfocal.) Speech: speech normal Motor: no movement abnormalities noted Extrem General: normal to inspection, no clubbing, no cyanosis and no edema Psych Mood: congruent mood Affect: normal affect Judgment: judgment good Course Initial Documented Vital Signs Temperature 98.6 F 05/09/18 02:23 Pulse Rate 77 05/09/18 02:23 Respiratory Rate 18 05/09/18 02:23 Blood Pressure 135/74 05/09/18 02:23 Pulse Oximetry 96 05/09/18 02:23 Last Documented Vital Signs Temperature 98.4 F 05/09/18 16:00 Pulse Rate 72 05/09/18 18:00 Respiratory Rate 20 05/09/18 16:00 Blood Pressure 141/82 H 05/09/18 16:00 Pulse Oximetry 97 05/09/18 16:00 Medical Decision Making [facility] Narrative Medical decision making narrative: During the course of the patient's emergency department visit, the patient's history, examination, and differential diagnosis were reviewed with the patient. The patient was placed on a vector control specialist with oximetry and frequent blood pressure monitoring. The patient had IV access obtained and blood work sent for analysis. A diagnostic evaluation was started regarding the patient's chest pain. The patient had an EKG done on arrival that shows a sinus rhythm heart rate of 79, QRS duration 103 ms, QTC [address] segment elevation. The patient is noted to have T wave inversions in lead I, aVL, V4, V5, and V6. This is compared to his last EKG done at this facility on April 05, 2018 and the V4 T wave inversions are new. The patient was initially provided nitroglycerin sublingual x3. The patient reports that his chest pain came down from an 8 out of 10 to a 5 out of 10. The patient was given aspirin 324 mg p.o. x1. The patient's blood pressure continued to be adequate in spite of nitroglycerin, therefore one additional sublingual nitroglycerin was administered while a nitroglycerin drip was prepared. The patient's diagnostic studies are remarkable for a white count of 13.3, hemoglobin 12.6, platelets 180 with 82.6 neutrophils, PT 10.8, PTT 31.3, chemistry is remarkable for a potassium of 3.4, GFR of 78, glucose 171, alk phos 118, BNP is 175, troponin I 0.53, lipase 64. A chest x-ray was done that shows no significant interval change when compared to the prior study of April 05, 2018, mild hazy opacity at the right lung base likely representing scarring or chronic atelectasis. Given the patient's elevated troponin there is a concern for non-STEMI in this patient. The patient was placed on a heparin drip per ID protocol. The patient's case including history, pertinent physical examination findings, and laboratory studies were discussed with Dr. Hennessy. It was agreed that the patient would be admitted to the hospitalist service. The patient's results were discussed with the patient, including the plan of care. I explained that further testing and/ or monitoring is indicated based on the patient's history, examination, and/ or laboratory findings. Therefore, I recommended admission for additional evaluation. The patient expressed understanding and was agreeable with this plan. The patient was admitted to the hospital in guarded condition and sent to a bed under the care of the [facility] service. Medical Screen Exam Complete: Yes Emergency Medical Condition: Yes Differential Diagnosis Differential Diagnosis: STEMI, versus non-STEMI, versus congestive heart failure exacerbation, versus acid reflux, versus anxiety disorder Medical Records Medical records reviewed: Yes I reviewed the patient's medical records. Lab Data Lab results reviewed: Yes I reviewed the patient's lab results. Result diagrams: 05/09/18 02:57 05/09/18 02:57 Lab Results 05/09/18 05/09/18 05/09/18 Range/Units 02:57 02:57 02:57 WBC 13.3 H (4.0-11.0) th/mm3 RBC 4.40 L (4.50-5.90) mil/mm3 Hgb 12.6 L (13.0-17.0) gm/dL Hct 38.4 L (39.0-51.0) % MCV 87.4 (80.0-100.0) fL MCH 28.8 (27.0-34.0) pg MCHC 32.9 (32.0-36.0) % RDW 15.8 (11.6-17.2) % Plt Count 180 (150-450) th/mm3 MPV 8.2 (7.0-11.0) fL Neut % (Auto) 82.6 H (16.0-70.0) % Lymph % (Auto) 11.8 (9.0-44.0) % Gage % (Auto) 4.3 (0.0-8.0) % Eos % (Auto) 0.8 (0.0-4.0) % Baso % (Auto) 0.5 (0.0-2.0) % Neut # (Auto) 11.0 H (1.8-7.7) th/mm3 Lymph # (Auto) 1.6 (1.0-4.8) th/mm3 Gage # (Auto) 0.6 (0.0-0.9) th/mm3 Eos # (Auto) 0.1 (0.0-0.4) th/mm3 Baso # (Auto) 0.1 (0.0-0.2) th/mm3 WBC Differential . Differential Comment Auto diff final PT 10.8 (9.8-11.6) sec INR 1.1 Ratio APTT 31.3 (23.4-31.7) sec Sodium (136-145) meq/L Potassium (3.5-5.1) meq/L Chloride (98-107) meq/L Carbon Dioxide (21.0-32.0) meq/L Anion Gap (5-15) meq/L BUN (7-18) mg/dL Creatinine (0.60-1.30) mg/dL Estimated GFR (>89) mL/min POC Glucose (68-110) mg/dl Random Glucose (74-106) mg/dL Calcium (8.5-10.1) mg/dL Magnesium (1.5-2.5) mg/dL Total Bilirubin (0.2-1.0) mg/dL AST (15-37) U/L ALT (12-78) U/L Alkaline Phosphatase (45-117) U/L Total Creatine Kinase (39-308) U/L CK-MB (CK-2) (0.5-3.6) ng/mL Troponin I (0.02-0.05) ng/mL B-Natriuretic Peptide 175 H (0-100) pg/mL Total Protein (6.4-8.2) g/dL Albumin (3.4-5.0) g/dL Lipase (73-393) U/L 05/09/18 05/09/18 05/09/18 Range/Units 02:57 02:57 08:11 WBC (4.0-11.0) th/mm3 RBC (4.50-5.90) mil/mm3 Hgb (13.0-17.0) gm/dL Hct (39.0-51.0) % MCV (80.0-100.0) fL MCH (27.0-34.0) pg MCHC (32.0-36.0) % RDW (11.6-17.2) % Plt Count (150-450) th/mm3 MPV (7.0-11.0) fL Neut % (Auto) (16.0-70.0) % Lymph % (Auto) (9.0-44.0) % Gage % (Auto) (0.0-8.0) % Eos % (Auto) (0.0-4.0) % Baso % (Auto) (0.0-2.0) % Neut # (Auto) (1.8-7.7) th/mm3 Lymph # (Auto) (1.0-4.8) th/mm3 Gage # (Auto) (0.0-0.9) th/mm3 Eos # (Auto) (0.0-0.4) th/mm3 Baso # (Auto) (0.0-0.2) th/mm3 WBC Differential Differential Comment PT (9.8-11.6) sec INR Ratio APTT (23.4-31.7) sec Sodium 141 (136-145) meq/L Potassium 3.4 L (3.5-5.1) meq/L Chloride 104 (98-107) meq/L Carbon Dioxide 30.0 (21.0-32.0) meq/L Anion Gap 7 (5-15) meq/L BUN 11 (7-18) mg/dL Creatinine 1.17 (0.60-1.30) mg/dL Estimated GFR 78 L (>89) mL/min POC Glucose 172 H 86 (68-110) mg/dl Random Glucose 171 H (74-106) mg/dL Calcium 8.1 L (8.5-10.1) mg/dL Magnesium 2.0 (1.5-2.5) mg/dL Total Bilirubin 0.8 (0.2-1.0) mg/dL AST 16 (15-37) U/L ALT 25 (12-78) U/L Alkaline Phosphatase 118 H (45-117) U/L Total Creatine Kinase 140 (39-308) U/L CK-MB (CK-2) 2.2 (0.5-3.6) ng/mL Troponin I 0.53 H (0.02-0.05) ng/mL B-Natriuretic Peptide (0-100) pg/mL Total Protein 7.9 (6.4-8.2) g/dL Albumin 3.5 (3.4-5.0) g/dL Lipase 64 L (73-393) U/L 05/09/18 05/09/18 05/09/18 Range/Units 09:55 09:55 11:19 WBC (4.0-11.0) th/mm3 RBC (4.50-5.90) mil/mm3 Hgb (13.0-17.0) gm/dL Hct (39.0-51.0) % MCV (80.0-100.0) fL MCH (27.0-34.0) pg MCHC (32.0-36.0) % RDW (11.6-17.2) % Plt Count (150-450) th/mm3 MPV (7.0-11.0) fL Neut % (Auto) (16.0-70.0) % Lymph % (Auto) (9.0-44.0) % Gage % (Auto) (0.0-8.0) % Eos % (Auto) (0.0-4.0) % Baso % (Auto) (0.0-2.0) % Neut # (Auto) (1.8-7.7) th/mm3 Lymph # (Auto) (1.0-4.8) th/mm3 Gage # (Auto) (0.0-0.9) th/mm3 Eos # (Auto) (0.0-0.4) th/mm3 Baso # (Auto) (0.0-0.2) th/mm3 WBC Differential Differential Comment PT (9.8-11.6) sec INR Ratio APTT 40.6 H D (23.4-31.7) sec Sodium (136-145) meq/L Potassium (3.5-5.1) meq/L Chloride (98-107) meq/L Carbon Dioxide (21.0-32.0) meq/L Anion Gap (5-15) meq/L BUN (7-18) mg/dL Creatinine (0.60-1.30) mg/dL Estimated GFR (>89) mL/min POC Glucose 179 H (68-110) mg/dl Random Glucose (74-106) mg/dL Calcium (8.5-10.1) mg/dL Magnesium (1.5-2.5) mg/dL Total Bilirubin (0.2-1.0) mg/dL AST (15-37) U/L ALT (12-78) U/L Alkaline Phosphatase (45-117) U/L Total Creatine Kinase (39-308) U/L CK-MB (CK-2) (0.5-3.6) ng/mL Troponin I 0.49 H (0.02-0.05) ng/mL B-Natriuretic Peptide (0-100) pg/mL Total Protein (6.4-8.2) g/dL Albumin (3.4-5.0) g/dL Lipase (73-393) U/L 05/09/18 05/09/18 05/09/18 Range/Units 13:17 16:15 16:15 WBC (4.0-11.0) th/mm3 RBC (4.50-5.90) mil/mm3 Hgb (13.0-17.0) gm/dL Hct (39.0-51.0) % MCV (80.0-100.0) fL MCH (27.0-34.0) pg MCHC (32.0-36.0) % RDW (11.6-17.2) % Plt Count (150-450) th/mm3 MPV (7.0-11.0) fL Neut % (Auto) (16.0-70.0) % Lymph % (Auto) (9.0-44.0) % Gage % (Auto) (0.0-8.0) % Eos % (Auto) (0.0-4.0) % Baso % (Auto) (0.0-2.0) % Neut # (Auto) (1.8-7.7) th/mm3 Lymph # (Auto) (1.0-4.8) th/mm3 Gage # (Auto) (0.0-0.9) th/mm3 Eos # (Auto) (0.0-0.4) th/mm3 Baso # (Auto) (0.0-0.2) th/mm3 WBC Differential Differential Comment PT (9.8-11.6) sec INR Ratio APTT 35.1 H (23.4-31.7) sec Sodium (136-145) meq/L Potassium (3.5-5.1) meq/L Chloride (98-107) meq/L Carbon Dioxide (21.0-32.0) meq/L Anion Gap (5-15) meq/L BUN (7-18) mg/dL Creatinine (0.60-1.30) mg/dL Estimated GFR (>89) mL/min POC Glucose (68-110) mg/dl Random Glucose (74-106) mg/dL Calcium (8.5-10.1) mg/dL Magnesium (1.5-2.5) mg/dL Total Bilirubin (0.2-1.0) mg/dL AST (15-37) U/L ALT (12-78) U/L Alkaline Phosphatase (45-117) U/L Total Creatine Kinase (39-308) U/L CK-MB (CK-2) (0.5-3.6) ng/mL Troponin I 0.48 H 0.47 H (0.02-0.05) ng/mL B-Natriuretic Peptide (0-100) pg/mL Total Protein (6.4-8.2) g/dL Albumin (3.4-5.0) g/dL Lipase (73-393) U/L 05/09/18 Range/Units 16:43 WBC (4.0-11.0) th/mm3 RBC (4.50-5.90) mil/mm3 Hgb (13.0-17.0) gm/dL Hct (39.0-51.0) % MCV (80.0-100.0) fL MCH (27.0-34.0) pg MCHC (32.0-36.0) % RDW (11.6-17.2) % Plt Count (150-450) th/mm3 MPV (7.0-11.0) fL Neut % (Auto) (16.0-70.0) % Lymph % (Auto) (9.0-44.0) % Gage % (Auto) (0.0-8.0) % Eos % (Auto) (0.0-4.0) % Baso % (Auto) (0.0-2.0) % Neut # (Auto) (1.8-7.7) th/mm3 Lymph # (Auto) (1.0-4.8) th/mm3 Gage # (Auto) (0.0-0.9) th/mm3 Eos # (Auto) (0.0-0.4) th/mm3 Baso # (Auto) (0.0-0.2) th/mm3 WBC Differential Differential Comment PT (9.8-11.6) sec INR Ratio APTT (23.4-31.7) sec Sodium (136-145) meq/L Potassium (3.5-5.1) meq/L Chloride (98-107) meq/L Carbon Dioxide (21.0-32.0) meq/L Anion Gap (5-15) meq/L BUN (7-18) mg/dL Creatinine (0.60-1.30) mg/dL Estimated GFR (>89) mL/min POC Glucose 335 H (68-110) mg/dl Random Glucose (74-106) mg/dL Calcium (8.5-10.1) mg/dL Magnesium (1.5-2.5) mg/dL Total Bilirubin (0.2-1.0) mg/dL AST (15-37) U/L ALT (12-78) U/L Alkaline Phosphatase (45-117) U/L Total Creatine Kinase (39-308) U/L CK-MB (CK-2) (0.5-3.6) ng/mL Troponin I (0.02-0.05) ng/mL B-Natriuretic Peptide (0-100) pg/mL Total Protein (6.4-8.2) g/dL Albumin (3.4-5.0) g/dL Lipase (73-393) U/L Imaging Data Radiologist's impression: Chest X-Ray 05/09/18 02:31 CONCLUSION: 1. No significant interval change when compared to the prior study of 2017. Mild hazy opacity at the right lung base likely represents scarring or chronic atelectasis. 2. Mild chronic cardiac silhouette enlargement. ECG Data Attestation: I personally reviewed and interpreted this ECG as follows: Prior ECG tracings: available for review Interpretation: The patient had an EKG done on arrival that shows a sinus rhythm heart rate of 79, QRS duration 103 ms, QTC [address] segment elevation. T waves are inverted in lead I, aVL, V4, V5, V6. This is compared to a prior EKG done at this facility last on April 05, 2018 and the T wave inversions in V4 appear to be new. Discharge Plan Discharge Disposition Patient Disposition: ED Admit(ED Internal Use Only) Discharge Order Discharge Orders: ED Use Only Admit Order (Routine); Ordered 05/09/18 Ordered By: Afshan Montano Discharge Details Diagnosis: Non-ST elevated myocardial infarction (non-STEMI) Physicians Team ED Provider: Afshan Montano Primary Care Provider: UNKNOWN, Attending Provider: Karri Padilla Other Providers: Adri Woods ; [facility],Insurance Status ED Status: Left Department Discharge Information Discharge Date/Time: 05/09/18 06:32
[2018-05-09 03:17] LABS: Baso # (Auto) 0.1 th/mm3 (0.0-0.2); Baso % (Auto) 0.5 % (0.0-2.0); Eos # (Auto) 0.1 th/mm3 (0.0-0.4); Eos % (Auto) 0.8 % (0.0-4.0); Hematocrit 38.4 % (39.0-51.0); Hemoglobin 12.6 gm/dL (13.0-17.0); Lymph # (Auto) 1.6 th/mm3 (1.0-4.8); Lymph % (Auto) 11.8 % (9.0-44.0); Mean Corpuscular HGB Conc 32.9 % (32.0-36.0); Mean Corpuscular Hemoglobin 28.8 pg (27.0-34.0); Mean Corpuscular Volume 87.4 fL (80.0-100.0); Mean Platelet Volume 8.2 fL (7.0-11.0); Mono # (Auto) 0.6 th/mm3 (0.0-0.9); Mono % (Auto) 4.3 % (0.0-8.0); Neut % (Auto) 82.6 % (16.0-70.0); Platelet Count 180 th/mm3 (150-450); Red Cell Distribution Width 15.8 % (11.6-17.2); White Blood Count 13.3 th/mm3 (4.0-11.0)
[2018-05-09] MEDS ORDERED: Nitroglycerin Drip Premix 50 MG/250 ML BOTTLE IV.CONT PRN (03:18)
[2018-05-09] MEDS ORDERED: Morphine Inj 4 MG/ML Vial IV.PUSH ONE (03:18)
--- NOTE | 2018-05-09 03:21 | XR ---
EXAM DATE: 05/09/2018 3:09 AM EST AGE/SEX: 53 years / Male INDICATIONS: Chest pain. CLINICAL DATA: This is the patient's initial encounter. Patient reports that signs and symptoms have been present for 1 day and indicates a pain score of 8/10. MEDICAL/SURGICAL HISTORY: Hypertension. Diabetes mellitus type II. Congestive heart failure. COPD. Myocardial infarction. Smoker. Pacemaker. Coronary artery stent. COMPARISON: [facility] [place] CHEST 1V SINGLE AP, 04/05/2018. . FINDINGS: Single AP view the chest. AICD in place. Mild hazy opacity at the right lung base is uncha nged from the prior study of 04/05/2018. Cardiac silhouette is mildly prominent but unchanged. No evid ence of pleural effusion or pneumothorax. CONCLUSION: 1. No significant interval change when compared to the prior study of 04/05/2018. Mild hazy opacity a t the right lung base likely represents scarring or chronic atelectasis. 2. Mild chronic cardiac silhouette enlargement. Electronically signed by: Olu Sharma MD 05/09/2018 3:20 AM EST
[2018-05-09 03:29] LABS: Activated Partial Thrombo Time 31.3 sec (23.4-31.7); INR 1.1 Ratio; Prothrombin Time 10.8 sec (9.8-11.6)
[2018-05-09 03:34] LABS: Albumin 3.5 g/dL (3.4-5.0); Anion Gap 7 meq/L (5-15); Aspartate Aminotransferase 16 U/L (15-37); Blood Urea Nitrogen 11 mg/dL (7-18); Calcium 8.1 mg/dL (8.5-10.1); Chloride 104 meq/L (98-107); Glomerular Filtration Rate 78 mL/min (>89); Glucose,Random 171 mg/dL (74-106); Lipase 64 U/L (73-393); Potassium 3.4 meq/L (3.5-5.1); Sodium 141 meq/L (136-145)
[2018-05-09 03:41] LABS: Alanine Aminotransferase 25 U/L (12-78); Alkaline Phosphatase 118 U/L (45-117); Creatine Kinase 140 U/L (39-308); Total Protein 7.9 g/dL (6.4-8.2); Troponin I 0.53 ng/mL (0.02-0.05)
[2018-05-09] MEDS ORDERED: Heparin 10,000 UNITS/10 ML Vial (for IV use) IV.PUSH STA (03:44)
[2018-05-09 03:54] LABS: Creatine Kinase MB 2.2 ng/mL (0.5-3.6)
[2018-05-09] MEDS: Heparin Drip 25,000 UNIT/250 ML BAG IV.CONT PRN (04:14)
[2018-05-09] MEDS ORDERED: Bisacodyl 10 MG Supp RECTAL PRN (04:29)
[2018-05-09] MEDS ORDERED: Acetaminophen 325 MG Tablet PO PRN (04:29)
[2018-05-09] MEDS: Isosorbide Mononitrate 30 MG ER 24HR Tablet (Imdur) PO SCH (06:37)
[2018-05-09] MEDS: Sod Chloride 0.9% Inj 1,000 ML IV.CONT SCH (06:55)
[2018-05-09] MEDS: Carvedilol 12.5 MG Tablet PO SCH ×2 (08:12→21:11)
[2018-05-09] MEDS: glipiZIDE 10 MG Tablet PO SCH ×2 (08:12→16:43)
[2018-05-09] MEDS: amLODIPine 5 MG Tablet PO SCH (08:12)
[2018-05-09] MEDS: Furosemide 40 MG Tablet PO SCH ×2 (08:12→21:11)
[2018-05-09] MEDS: Famotidine 20 MG Tablet PO SCH ×2 (08:12→21:10)
--- NOTE | 2018-05-09 08:20 | ECG ---
Date Performed: 05/09/2018 Time Performed: 02:35:06 PTAGE: 53 years EKG: Sinus rhythm MARKED LEFT AXIS DEVIATION ANTERIOR MYOCARDIAL INFARCTION INFERIOR MYOCARDIAL INFARCTION INTERPRETAT ION BASED ON A DEFAULT AGE OF 40 YEARS PREVIOUS TRACING : 04/05/2018 07.47 DOCTOR: Sanjay Roque Interpretating Date/Time 05/09/2018 08:20:22
--- NOTE | 2018-05-09 10:15 | P.HP ---
[facility]ician: UNKNOWN Chief Complaint: Chest pain History of Present Illness: Patient is a 53-year-old male with known history of coronary artery disease, DM , type 2, COPD on home O2 2 L nasal cannula still continues to smokes half pack per day, history of CAD status post stents placed patient is not sure but he said he had stents placed a year ago and approximately a month ago. Patient came into the ER complaining of chest pain that started last evening at around 11 PM while watching TV radiating to the left arm steady that lasted until 2 AM when the patient came here. This was associated with some nausea no fever chills no vomiting. Denies any leg swelling baseline with 3 pillow orthopnea. Patient still active with ADLs. Persistence of this pain prompted consult to ER and was admitted for further evaluation and management. Review from last admission from February 2018 revealed an EF of 20-25% Patient currently is chest pain-free. Some tenderness on deep palpation of the chest wall. Inpatient Certification: I certify that the inpatient services were ordered in accordance with Medicare regulations governing the order. This includes certification that hospital inpatient services are reasonable and necessary and in the case of services not specified as inpatient-only under 42 CFR 419.22(n), that they are appropriately provided as inpatient services in accordance to with the 2-midnight benchmark under 43 CFR 412.3(e) Estimated Total Length of Stay (Days): 2 Plans for Post Hospital Care: Not yet determined Review of Systems Denies any fever chills denies any cough baseline pretty active with ADLs use O2 2 L nasal cannula. Baseline with 3 pillow orthopnea denies any diarrhea denies any dysuria urgency denies any leg swelling PMFSH - History History Provided By: Patient - Medical History Medical History: Medical History (Last Reviewed 05/09/18 @ 03:56 by Afshan Montano MD) Bipolar disorder COPD (chronic obstructive pulmonary disease) Depression Diabetes Heart disease Hypercholesteremia Hypertension Myocardial infarct Schizophrenia Smoker - Surgical History Surgical History: Surgical History (Last Updated 05/09/18 @ 03:57 by Afshan Montano MD) History of appendectomy History of heart artery stent - Family History Family History: Family History (Last Reviewed 05/09/18 @ 03:56 by Afshan Montano MD) Other Diabetes - Tobacco History Second Hand Smoke Exposure: No Tobacco Use In Past 30 Days: Yes Smoking Status: Current every day smoker Tobacco Type: Cigarettes Packs Per Day: 1 Years Smoked: 30 - Alcohol History How Often Do You Have a Drink Containing Alcohol: Never - Substance Use History Substance History: Active Abuse - Substance Use Type Crack/Cocaine Status: Active Route Used: By Mouth Last Used: 2 weeks ago Reason for Use: Feels Good, Get High, Increase Energy Level - Travel History Recent Travel in the [place] Within the Last 8 Weeks: No Recent Travel Out of the Country Within the Last 8 Weeks: No - Immunization History Tetanus Immunization: <5 Years Medications and Allergies Active Medications: Active Medications Acetaminophen (Tylenol) 650 mg PO Q4H PRN PRN Reason: Temp > 100.4 Al Hydroxide/Mg Hydroxide (Milk Of Magnroxy Liq) 30 ml PO Q12H PRN PRN Reason: Mild Constipation Albuterol (Duoneb Neb (Bharti)) 1 ampul NEB Q6HR ALT NEB [facility] Amlodipine Besylate (Norvasc) 5 mg PO DAILY [facility] Last Admin: 05/09/18 08:12 Dose: 5 mg Aspirin (Ecotrin) 81 mg PO DAILY [facility] Last Admin: 05/09/18 08:12 Dose: 81 mg Atorvastatin Calcium (Lipitor) 40 mg PO [facility] Bisacodyl (Dulcolax Supp) 10 mg RECTAL DAILY PRN PRN Reason: SEVERE CONSITIPATION Carvedilol (Coreg) 25 mg PO BID [facility] Last Admin: 05/09/18 08:12 Dose: 25 mg Clopidogrel Bisulfate (Plavix) 75 mg PO DAILY [facility] Last Admin: 05/09/18 08:12 Dose: 75 mg Famotidine (Pepcid) 20 mg PO BID [facility] Last Admin: 05/09/18 08:12 Dose: 20 mg Furosemide (Lasix) 40 mg PO BID [facility] Last Admin: 05/09/18 08:12 Dose: 40 mg Glipizide (Glucotrol) 5 mg PO BID@0800,1700 [facility] Last Admin: 05/09/18 08:12 Dose: 5 mg Nitroglycerin/Dextrose (Nitroglycerin Drip Premix) 50 mg in 250 mls @ 0 mls/hr IV.CONT TITRATE PRN; Protocol PRN Reason: Per Protocol Last Admin: 05/09/18 04:15 Dose: 5 mcg/min, 1.5 mls/hr Heparin Sodium/Dextrose (Heparin/D5w 25,000 U/250 Ml) 25,000 unit in 250 mls @ 0 mls/hr IV.CONT TITRATE PRN; Protocol PRN Reason: Per Protocol Last Admin: 05/09/18 04:14 Dose: 1,000 units/hr, 10 mls/hr Sodium Chloride (Ns Inj) 1,000 mls @ 60 mls/hr IV.CONT .[id number] [facility] Last Admin: 05/09/18 06:55 Dose: 60 mls/hr Isosorbide Mononitrate (Imdur) 30 mg PO DAILY@0700 [facility] Last Admin: 05/09/18 06:37 Dose: 30 mg Lactulose (Lactulose Liq) 30 ml PO DAILY PRN PRN Reason: SEVERE CONSITIPATION Ondansetron HCl (Zofran Inj) 4 mg IV.PUSH Q6H PRN PRN Reason: NAUSEA OR VOMITING Sennosides (Senokot) 17.2 mg PO Q12H PRN PRN Reason: Moderate Constipation Sodium Chloride (Ns Flush) 2 ml IV.FLUSH UNSCH PRN PRN Reason: FLUSH AFTER USING IV ACCESS Sodium Chloride (Ns Flush) 2 ml IV.FLUSH BID [facility] Last Admin: 05/09/18 08:12 Dose: Not Given Sodium Chloride (Ns Flush) 2 ml IV.FLUSH PRN PRN PRN Reason: FLUSH AFTER USING IV ACCESS Allergies Allergy/AdvReac Type Severity Reaction Status Date / Time No Known Allergies Allergy Verified 05/09/18 02:27 Exam Vital signs: Vital Signs 05/09/18 02:23 05/09/18 02:35 05/09/18 03:00 Temperature 98.6 F Pulse Rate 77 74 Respiratory Rate 18 18 Blood Pressure 135/74 129/73 Pulse Oximetry 96 95 96 05/09/18 03:05 05/09/18 03:10 05/09/18 03:15 Temperature Pulse Rate 75 67 Respiratory Rate 18 16 16 Blood Pressure 134/80 138/86 Pulse Oximetry 95 95 05/09/18 03:20 05/09/18 03:25 05/09/18 03:30 Temperature Pulse Rate 65 68 84 Respiratory Rate 16 17 17 Blood Pressure 131/78 128/77 129/72 Pulse Oximetry 94 L 94 L 96 05/09/18 04:00 05/09/18 04:20 05/09/18 04:36 Temperature Pulse Rate 66 77 69 Respiratory Rate 18 17 Blood Pressure 135/85 130/80 123/73 Pulse Oximetry 94 L 96 95 05/09/18 04:54 05/09/18 06:31 05/09/18 06:58 Temperature 98 F Pulse Rate 66 64 67 Respiratory Rate 16 16 18 Blood Pressure 125/78 136/84 136/84 Pulse Oximetry 95 95 Intake & Output 05/08/18 05/09/18 05/09/18 18:59 06:59 18:59 Weight 100 kg Other: Date of Last Bowel Movement 05/08/18 05/08/18 Weight On Admission 111.13 kg Narrative: Awake alert oriented x3 not in acute distress on O2 nasal cannula 2 L Anicteric sclera Neck supple Lungs no rales no wheezes Regular rhythm Abdomen soft nontender good bowel sounds Extremities no edema Neurologic exam nonfocal Results - Labs CBC & Chem 7: 05/10/18 05:47 05/09/18 02:57 Labs: Laboratory Results - last 24 hr 05/09/18 05/09/18 05/09/18 02:57 02:57 02:57 WBC 13.3 H RBC 4.40 L Hgb 12.6 L Hct 38.4 L MCV 87.4 MCH 28.8 MCHC 32.9 RDW 15.8 Plt Count 180 MPV 8.2 Neut % (Auto) 82.6 H Lymph % (Auto) 11.8 [place] % (Auto) 4.3 Eos % (Auto) 0.8 Baso % (Auto) 0.5 Neut # (Auto) 11.0 H Lymph # (Auto) 1.6 [place] # (Auto) 0.6 Eos # (Auto) 0.1 Baso # (Auto) 0.1 WBC Differential . Differential Comment Auto diff final PT 10.8 INR 1.1 APTT 31.3 Sodium Potassium Chloride Carbon Dioxide Anion Gap BUN Creatinine Estimated GFR POC Glucose Random Glucose Calcium Magnesium Total Bilirubin AST ALT Alkaline Phosphatase Total Creatine Kinase CK-MB (CK-2) Troponin I B-Natriuretic Peptide 175 H Total Protein Albumin Lipase 05/09/18 05/09/18 05/09/18 02:57 02:57 08:11 WBC RBC Hgb Hct MCV MCH MCHC RDW Plt Count MPV Neut % (Auto) Lymph % (Auto) [place] % (Auto) Eos % (Auto) Baso % (Auto) Neut # (Auto) Lymph # (Auto) [place] # (Auto) Eos # (Auto) Baso # (Auto) WBC Differential Differential Comment PT INR APTT Sodium 141 Potassium 3.4 L Chloride 104 Carbon Dioxide 30.0 Anion Gap 7 BUN 11 Creatinine 1.17 Estimated GFR 78 L POC Glucose 172 H 86 Random Glucose 171 H Calcium 8.1 L Magnesium 2.0 Total Bilirubin 0.8 AST 16 ALT 25 Alkaline Phosphatase 118 H Total Creatine Kinase 140 CK-MB (CK-2) 2.2 Troponin I 0.53 H B-Natriuretic Peptide Total Protein 7.9 Albumin 3.5 Lipase 64 L - Imaging Impressions Chest X-Ray 05/09/18 02:31 CONCLUSION: 1. No significant interval change when compared to the prior study of 2017. Mild hazy opacity at the right lung base likely represents scarring or chronic atelectasis. 2. Mild chronic cardiac silhouette enlargement. Caprini VTE Risk Assessment Caprini Risk Assessment Model: Point Value = 1 Point Value = 2 Point Value = 3 Point Value = 5 Age 41-60 Minor surgery BMI > 25 kg/m2 Swollen legs Varicose veins or History of unexplained or recurrent spontaneous Oral contraceptives or hormone replacement Sepsis (< 1 month) Serious lung disease, including pneumonia (< 1 month) Abnormal pulmonary function Acute myocardial infarction Congestive heart failure (< 1 month) History of inflammatory bowel disease Medical patient at bed rest Age 61-74 Arthroscopic surgery Major open surgery (> 45 min) Laparoscopic surgery (> 45 min) Malignancy Confined to bed (> 72 hours) Immobilizing plaster cast Central venous access Age >= 75 History of VTE Family history of VTE Factor V Leiden Prothrombin [id number] Lupus anticoagulant Anticardiolipin antibodies Elevated serum homocysteine Heparin-induced thrombocytopenia Other congenital or acquired thrombophilia Stroke (< 1 month) Elective arthroplasty Hip, pelvis, or leg fracture Acute spinal cord injury (< 1 month) Prophylaxis Regimen: Total Risk Factor Score Risk Level Prophylaxis Regimen 0-1 Low Early ambulation 2 Moderate Order ONE of the following: *Sequential Compression Device (SCD) *Heparin 5000 units SQ BID 3-4 Higher Order ONE of the following medications: *Heparin 5000 units SQ TID *Enoxaparin/Lovenox 40 mg SQ daily (WT < 150 kg, CrCl > 30 mL/min) *Enoxaparin/Lovenox 30 mg SQ daily (WT < 150 kg, CrCl > 10-29 mL/min) *Enoxaparin/Lovenox 30 mg SQ BID (WT < 150 kg, CrCl > 30 mL/min) AND/OR *Sequential Compression Device (SCD) 5 or more Highest Order ONE of the following medications: *Heparin 5000 units SQ TID (Preferred with Epidurals) *Enoxaparin/Lovenox 40 mg SQ daily (WT < 150 kg, CrCl > 30 mL/min) *Enoxaparin/Lovenox 30 mg SQ daily (WT < 150 kg, CrCl > 10-29 mL/min) *Enoxaparin/Lovenox 30 mg SQ BID (WT < 150 kg, CrCl > 30 mL/min) AND *Sequential Compression Device (SCD) Assessment and Plan - Plan [id number] male with known CAD presenting with Chest pain rule out acute coronary syndrome with underlying CAD history of stents placed in the past Cardiomyopathy EF of known EF of 20-25% from February 2018 Follow troponin levels Currently with no acute EKG changes Cardiology consulted-we will defer to service whether to proceed with myocardial perfusion study versus cardiac cath. Continue on aspirin + Plavix, statins, amlodipine, Coreg, heparin drip. COPD in remission O2 requiring Continue home meds Diabetes type 2- A1C- 5.9 from 03/2018 States good hypoglycemic awareness Continue monitoring blood sugars. restart home oral hypoglcyemics change to ADA/cardiac diet Cocaine use- counselled DVT prophylaxis patient currently on heparin drip.
--- NOTE | 2018-05-09 17:20 | P.CONCA ---
History of Present Illness Service: Cardiology Consult date: 05/09/18 Requesting Physician: Francis Hennessy Reason for Consult: NSTEMI, resent PCI, cocaine use Primary Care Provider: UNKNOWN Chief Complaint: Chest pain History of Present Illness: This is a 53-year-old male with a past history of cocaine use, OR, chest pain, bipolar disorder, COPD, depression, diabetes, hypercholesteremia , hypertension, schizophrenia and smoking. He reports that he was here on April 05, 2018 and had a stent placed. He states, that he has a total of 4 stents in the past. Yesterday, he started to develop chest pain off and on since 11PM and that it would last about 30 minutes with shortness of breath, nausea and vomiting. He admits to cocaine use 2 days ago. He came to the Emergency Department for further evaluation. Currently, he denies any CP, pressure, palpitations, dizziness, edema or SOB. Review of Systems All other systems reviewed negative except as stated in HPI PMF - History History Provided By: Patient - Medical History Medical History: Medical History (Last Reviewed 05/09/18 @ 03:56 by Afshan Montano MD) Bipolar disorder COPD (chronic obstructive pulmonary disease) Depression Diabetes Heart disease Hypercholesteremia Hypertension Myocardial infarct Schizophrenia Smoker - Surgical History Surgical History: Surgical History (Last Updated 05/09/18 @ 03:57 by Afshan Montano MD) History of appendectomy History of heart artery stent - Family History Family History: Family History (Last Reviewed 05/09/18 @ 03:56 by Afshan Montano MD) Other Diabetes - Tobacco History Second Hand Smoke Exposure: No Tobacco Use In Past 30 Days: Yes Smoking Status: Current every day smoker Tobacco Type: Cigarettes Packs Per Day: 1 Years Smoked: 30 - Alcohol History How Often Do You Have a Drink Containing Alcohol: Never - Substance Use History Substance History: Active Abuse - Substance Use Type Crack/Cocaine Status: Active Route Used: By Mouth Last Used: 2 weeks ago Reason for Use: Feels Good, Get High, Increase Energy Level - Travel History Recent Travel in the [facility] Within the Last 8 Weeks: No Recent Travel Out of the Country Within the Last 8 Weeks: No - Immunization History Tetanus Immunization: <5 Years Medications and Allergies Allergies Allergy/AdvReac Type Severity Reaction Status Date / Time No Known Allergies Allergy Verified 05/09/18 02:27 Active Medications: Active Medications Acetaminophen (Tylenol) 650 mg PO Q4H PRN PRN Reason: Temp > 100.4 Al Hydroxide/Mg Hydroxide (Milk Of Magnesia Liq) 30 ml PO Q12H PRN PRN Reason: Mild Constipation Albuterol (Duoneb Neb (Bharti)) 1 ampul NEB Q6HR ALT NEB [facility] Last Admin: 05/09/18 13:24 Dose: 1 ampul Amlodipine Besylate (Norvasc) 5 mg PO DAILY [facility] Last Admin: 05/09/18 08:12 Dose: 5 mg Aspirin (Ecotrin) 81 mg PO DAILY [facility] Last Admin: 05/09/18 08:12 Dose: 81 mg Atorvastatin Calcium (Lipitor) 40 mg PO HS [facility] Bisacodyl (Dulcolax Supp) 10 mg RECTAL DAILY PRN PRN Reason: SEVERE CONSITIPATION Carvedilol (Coreg) 25 mg PO BID [facility] Last Admin: 05/09/18 08:12 Dose: 25 mg Clopidogrel Bisulfate (Plavix) 75 mg PO DAILY [facility] Last Admin: 05/09/18 08:12 Dose: 75 mg Famotidine (Pepcid) 20 mg PO BID [facility] Last Admin: 05/09/18 08:12 Dose: 20 mg Furosemide (Lasix) 40 mg PO BID [facility] Last Admin: 05/09/18 08:12 Dose: 40 mg Glipizide (Glucotrol) 5 mg PO BID@0800,1700 [facility] Last Admin: 05/09/18 16:43 Dose: 5 mg Nitroglycerin/Dextrose (Nitroglycerin Drip Premix) 50 mg in 250 mls @ 0 mls/hr IV.CONT TITRATE PRN; Protocol PRN Reason: Per Protocol Last Titration: 05/09/18 11:00 Dose: 0 mcg/min, 0 mls/hr Heparin Sodium/Dextrose (Heparin/D5w 25,000 U/250 Ml) 25,000 unit in 250 mls @ 0 mls/hr IV.CONT TITRATE PRN; Protocol PRN Reason: Per Protocol Last Admin: 05/09/18 04:14 Dose: 1,000 units/hr, 10 mls/hr Sodium Chloride (Ns Inj) 1,000 mls @ 60 mls/hr IV.CONT .[id number] [facility] Last Admin: 05/09/18 06:55 Dose: 60 mls/hr Isosorbide Mononitrate (Imdur) 30 mg PO DAILY@0700 [facility] Last Admin: 05/09/18 06:37 Dose: 30 mg Lactulose (Lactulose Liq) 30 ml PO DAILY PRN PRN Reason: SEVERE CONSITIPATION Ondansetron HCl (Zofran Inj) 4 mg IV.PUSH Q6H PRN PRN Reason: NAUSEA OR VOMITING Sennosides (Senokot) 17.2 mg PO Q12H PRN PRN Reason: Moderate Constipation Sodium Chloride (Ns Flush) 2 ml IV.FLUSH UNSCH PRN PRN Reason: FLUSH AFTER USING IV ACCESS Sodium Chloride (Ns Flush) 2 ml IV.FLUSH BID [facility] Last Admin: 05/09/18 08:12 Dose: Not Given Sodium Chloride (Ns Flush) 2 ml IV.FLUSH PRN PRN PRN Reason: FLUSH AFTER USING IV ACCESS Exam Vital signs: Vital Signs 05/09/18 02:23 05/09/18 02:35 05/09/18 03:00 Temperature 98.6 F Pulse Rate 77 74 Respiratory Rate 18 18 Blood Pressure 135/74 129/73 Pulse Oximetry 96 95 96 05/09/18 03:05 05/09/18 03:10 05/09/18 03:15 Temperature Pulse Rate 75 67 Respiratory Rate 18 16 16 Blood Pressure 134/80 138/86 Pulse Oximetry 95 95 05/09/18 03:20 05/09/18 03:25 05/09/18 03:30 Temperature Pulse Rate 65 68 84 Respiratory Rate 16 17 17 Blood Pressure 131/78 128/77 129/72 Pulse Oximetry 94 L 94 L 96 05/09/18 04:00 05/09/18 04:20 05/09/18 04:36 Temperature Pulse Rate 66 77 69 Respiratory Rate 18 17 Blood Pressure 135/85 130/80 123/73 Pulse Oximetry 94 L 96 95 05/09/18 04:54 05/09/18 06:31 05/09/18 06:58 Temperature 98 F Pulse Rate 66 64 67 Respiratory Rate 16 16 18 Blood Pressure 125/78 136/84 136/84 Pulse Oximetry 95 95 05/09/18 07:00 05/09/18 08:00 05/09/18 09:00 Temperature 98.6 F Pulse Rate 61 78 76 Respiratory Rate 20 Blood Pressure 133/71 Pulse Oximetry 90 L 05/09/18 10:00 05/09/18 11:00 05/09/18 12:00 Temperature 98.6 F Pulse Rate 76 72 66 Respiratory Rate 20 Blood Pressure 126/73 Pulse Oximetry 91 L 05/09/18 13:00 05/09/18 13:25 05/09/18 13:29 Temperature Pulse Rate 76 79 Respiratory Rate 16 Blood Pressure Pulse Oximetry 96 05/09/18 14:00 05/09/18 15:00 05/09/18 16:00 Temperature 98.4 F Pulse Rate 76 69 77 Respiratory Rate 20 Blood Pressure 141/82 H Pulse Oximetry 97 Intake & Output 05/08/18 05/09/18 05/09/18 18:59 06:59 18:59 Weight 100 kg Other: Date of Last Bowel Movement 05/08/18 05/08/18 Weight On Admission 111.13 kg - Constitutional no acute distress - Routine HEENT Exam Head: Present: normocephalic Eye: Present: PERRL ENT: Present: mucous membranes moist - Routine Neck Exam Present: full ROM - Routine Respiratory Exam Present: CTA bilaterally - Routine Cardiovascular Exam Present: S1, S2. Absent: murmur, gallop, rubs - Routine Abdominal Exam Present: normoactive bowel sounds - Routine Extremities Exam Present: full ROM, pulses intact, normal capillary refill. Absent: cyanosis, clubbing, edema - Routine Skin Exam Present: intact - Routine Neurological Exam Present: oriented X3 Results 05/09/18 02:57 05/09/18 02:57 Cardiac Enzymes 05/09/18 05/09/18 05/09/18 Range/Units 02:57 02:57 09:55 AST 16 (15-37) U/L CK-MB (CK-2) 2.2 (0.5-3.6) ng/mL Troponin I 0.53 H 0.49 H (0.02-0.05) ng/mL B-Natriuretic Peptide 175 H (0-100) pg/mL 05/09/18 05/09/18 Range/Units 13:17 16:15 AST (15-37) U/L CK-MB (CK-2) (0.5-3.6) ng/mL Troponin I 0.48 H 0.47 H (0.02-0.05) ng/mL B-Natriuretic Peptide (0-100) pg/mL Coagulation 18 05/09/18 05/09/18 Range/Units 02:57 02:57 09:55 PT 10.8 (9.8-11.6) sec APTT 31.3 40.6 H D (23.4-31.7) sec B-Natriuretic Peptide 175 H (0-100) pg/mL 05/09/18 Range/Units 16:15 PT (9.8-11.6) sec APTT 35.1 H (23.4-31.7) sec B-Natriuretic Peptide (0-100) pg/mL CBC 05/09/18 Range/Units 02:57 WBC 13.3 H (4.0-11.0) th/mm3 RBC 4.40 L (4.50-5.90) mil/mm3 Hgb 12.6 L (13.0-17.0) gm/dL Hct 38.4 L (39.0-51.0) % Plt Count 180 (150-450) th/mm3 Neut # (Auto) 11.0 H (1.8-7.7) th/mm3 Lymph # (Auto) 1.6 (1.0-4.8) th/mm3 [place] # (Auto) 0.6 (0.0-0.9) th/mm3 Eos # (Auto) 0.1 (0.0-0.4) th/mm3 Baso # (Auto) 0.1 (0.0-0.2) th/mm3 Comprehensive Metabolic Panel 05/09/18 Range/Units 02:57 Sodium 141 (136-145) meq/L Potassium 3.4 L (3.5-5.1) meq/L Chloride 104 (98-107) meq/L Carbon Dioxide 30.0 (21.0-32.0) meq/L BUN 11 (7-18) mg/dL Creatinine 1.17 (0.60-1.30) mg/dL Calcium 8.1 L (8.5-10.1) mg/dL AST 16 (15-37) U/L ALT 25 (12-78) U/L Alkaline Phosphatase 118 H (45-117) U/L Total Protein 7.9 (6.4-8.2) g/dL Albumin 3.5 (3.4-5.0) g/dL Intake and Output 05/09/18 05/09/18 05/09/18 06:59 14:59 22:59 Other: Date of Last Bowel Movement 05/08/18 05/08/18 05/08/18 Weight 100 kg Weight On Admission 111.13 kg - Imaging and Cardiology Imaging: Impressions Chest X-Ray 05/09/18 02:31 CONCLUSION: 1. No significant interval change when compared to the prior study of 2017. Mild hazy opacity at the right lung base likely represents scarring or chronic atelectasis. 2. Mild chronic cardiac silhouette enlargement. Assessment and Plan - Assessment (1) Non-ST elevated myocardial infarction (non-STEMI) Code(s): I21.4 - Non-ST elevation (NSTEMI) myocardial infarction Status: Acute (2) Unstable angina pectoris Code(s): I20.0 - Unstable angina Status: Acute (3) Acute exacerbation of CHF (congestive heart failure) Code(s): I50.9 - Heart failure, unspecified Status: Acute - Plan Patient used cocaine 2 days ago; his presentation is c/w coronary spasm. There is no evidence of acute stent thrombosis, we will continue to monitor. We will continue with current cardiac treatment plan and adjust as needed. We recommend medical management. We will continue to follow patient during hospitalization. The patient was seen and evaluated by Dr. Woods who participated in care, management and decision making. - Attending Attestation Patient seen and examined. I reviewed and agree with the evaluation and plan as presented. Suspect coronary spasm related to cocaine. Continue current program. He was strongly encouraged to stop using cocaine.
[2018-05-09] MEDS ORDERED: Dextrose 50% in Water 50 ML Vial IV.PUSH PRN (17:26)
[2018-05-09] MEDS ORDERED: Insulin NovoLIN Regular Correctional Sugar Inj SQ SCH (18:00)
[2018-05-09] MEDS: Insulin NovoLIN Regular Correctional Sugar Inj SQ SCH ×2 (18:18→22:25)
[2018-05-10] MEDS: Sod Chloride 0.9% Inj 1,000 ML IV.CONT SCH (02:00)
[2018-05-10] MEDS: Heparin Drip 25,000 UNIT/250 ML BAG IV.CONT PRN (02:13)
[2018-05-10 07:10] LABS: Baso # (Auto) 0.1 th/mm3 (0.0-0.2); Baso % (Auto) 0.8 % (0.0-2.0); Eos # (Auto) 0.2 th/mm3 (0.0-0.4); Eos % (Auto) 2.4 % (0.0-4.0); Hematocrit 39.4 % (39.0-51.0); Hemoglobin 12.8 gm/dL (13.0-17.0); Lymph # (Auto) 1.7 th/mm3 (1.0-4.8); Lymph % (Auto) 17.4 % (9.0-44.0); Mean Corpuscular HGB Conc 32.6 % (32.0-36.0); Mean Corpuscular Hemoglobin 28.8 pg (27.0-34.0); Mean Corpuscular Volume 88.4 fL (80.0-100.0); Mean Platelet Volume 8.5 fL (7.0-11.0); Mono # (Auto) 0.6 th/mm3 (0.0-0.9); Mono % (Auto) 6.4 % (0.0-8.0); Neut # (Auto) 6.9 th/mm3 (1.8-7.7); Platelet Count 165 th/mm3 (150-450); Red Blood Count 4.46 mil/mm3 (4.50-5.90); Red Cell Distribution Width 15.9 % (11.6-17.2); White Blood Count 9.5 th/mm3 (4.0-11.0)
[2018-05-10] MEDS: Isosorbide Mononitrate 30 MG ER 24HR Tablet (Imdur) PO SCH (07:21)
[2018-05-10 07:50] LABS: Alanine Aminotransferase 24 U/L (12-78); Albumin 3.2 g/dL (3.4-5.0); Anion Gap 5 meq/L (5-15); Aspartate Aminotransferase 14 U/L (15-37); Blood Urea Nitrogen 10 mg/dL (7-18); Calcium 8.5 mg/dL (8.5-10.1); Chloride 103 meq/L (98-107); Glomerular Filtration Rate Greater Than 89 mL/min (>89); Glucose,Random 137 mg/dL (74-106); Potassium 3.7 meq/L (3.5-5.1); Sodium 138 meq/L (136-145)
[2018-05-10 07:52] LABS: Alkaline Phosphatase 111 U/L (45-117); Total Protein 7.6 g/dL (6.4-8.2)
[2018-05-10] MEDS: glipiZIDE 10 MG Tablet PO SCH (08:04)
[2018-05-10] MEDS: Furosemide 40 MG Tablet PO SCH (08:04)
[2018-05-10] MEDS: Famotidine 20 MG Tablet PO SCH (08:05)
[2018-05-10] MEDS: Carvedilol 12.5 MG Tablet PO SCH (08:05)
[2018-05-10] MEDS: Insulin NovoLIN Regular Correctional Sugar Inj SQ SCH (08:05)
[2018-05-10] MEDS: amLODIPine 5 MG Tablet PO SCH (08:05)
[2018-05-10 08:22] VITALS: BP 134/80; RESP 20; TEMP 97.7; O2SAT 99
--- NOTE | 2018-05-10 08:26 | P.PN ---
Subjective Interval history: telemetry - sinus no complains of chest pain or shortness of breath d/w him- cocainse use and smoking - STOP Physical Exam Vital signs: Vital Signs 05/09/18 09:00 05/09/18 10:00 05/09/18 11:00 Temperature Pulse Rate 76 76 72 Respiratory Rate Blood Pressure Pulse Oximetry 05/09/18 12:00 05/09/18 13:00 05/09/18 13:25 Temperature 98.6 F Pulse Rate 66 76 79 Respiratory Rate 20 16 Blood Pressure 126/73 Pulse Oximetry 91 L 05/09/18 13:29 05/09/18 14:00 05/09/18 15:00 Temperature Pulse Rate 76 69 Respiratory Rate Blood Pressure Pulse Oximetry 96 05/09/18 16:00 05/09/18 17:00 05/09/18 18:00 Temperature 98.4 F Pulse Rate 77 80 72 Respiratory Rate 20 Blood Pressure 141/82 H Pulse Oximetry 97 05/09/18 19:00 05/09/18 19:47 05/09/18 19:48 Temperature Pulse Rate 88 73 Respiratory Rate 17 Blood Pressure Pulse Oximetry 94 L 05/09/18 20:00 05/09/18 21:00 05/09/18 22:00 Temperature 98.3 F Pulse Rate 72 62 62 Respiratory Rate 16 Blood Pressure 141/82 H Pulse Oximetry 95 05/09/18 23:00 05/10/18 00:00 05/10/18 01:00 Temperature 98.3 F Pulse Rate 88 64 68 Respiratory Rate 14 Blood Pressure 114/80 Pulse Oximetry 95 05/10/18 02:00 05/10/18 03:00 05/10/18 04:00 Temperature 98.2 F Pulse Rate 58 L 69 68 Respiratory Rate 14 Blood Pressure 138/96 H Pulse Oximetry 91 L 05/10/18 05:00 05/10/18 07:41 05/10/18 08:00 Temperature 97.7 F Pulse Rate 70 76 64 Respiratory Rate 16 20 Blood Pressure 134/80 Pulse Oximetry 96 99 Intake & Output 05/09/18 05/10/18 05/10/18 18:59 06:59 18:59 Intake Total 960 / 960 1250 / 1250 Output Total 1150 / 1150 Balance -190 / -190 1250 / 1250 Weight 100.7 kg Intake: IV 1250 / 1250 Heparin/D5W 25,000 U/250 mL 25, 250 / 250 000 unit In 250 ml @ Per Protocol IV.CONT TITRATE PRN Rx #:[id number] NS Inj 1,000 ML @ 60 mls/hr IV. 1000 / 1000 CONT .[id number] [facility] Rx#:[id number] Oral 960 / 960 Output: Urine 1150 / 1150 Other: Date of Last Bowel Movement 05/08/18 Narrative: Awake alert oriented x3 not in acute distress on O2 nasal cannula 2 L Anicteric sclera Neck supple Lungs no rales no wheezes Regular rhythm Abdomen soft nontender good bowel sounds Extremities no edema Neurologic exam nonfocal Results - Labs CBC & Chem 7: 05/10/18 05:47 05/10/18 05:47 Laboratory Results - last 24 hr 05/09/18 05/09/18 05/09/18 09:55 09:55 11:19 WBC RBC Hgb Hct MCV MCH MCHC RDW Plt Count MPV Neut % (Auto) Lymph % (Auto) [place] % (Auto) Eos % (Auto) Baso % (Auto) Neut # (Auto) Lymph # (Auto) [place] # (Auto) Eos # (Auto) Baso # (Auto) WBC Differential Differential Comment APTT 40.6 H D Sodium Potassium Chloride Carbon Dioxide Anion Gap BUN Creatinine Estimated GFR POC Glucose 179 H Random Glucose Calcium Total Bilirubin AST ALT Alkaline Phosphatase Troponin I 0.49 H Total Protein Albumin 05/09/18 05/09/18 05/09/18 13:17 16:15 16:15 WBC RBC Hgb Hct MCV MCH MCHC RDW Plt Count MPV Neut % (Auto) Lymph % (Auto) [place] % (Auto) Eos % (Auto) Baso % (Auto) Neut # (Auto) Lymph # (Auto) [place] # (Auto) Eos # (Auto) Baso # (Auto) WBC Differential Differential Comment APTT 35.1 H Sodium Potassium Chloride Carbon Dioxide Anion Gap BUN Creatinine Estimated GFR POC Glucose Random Glucose Calcium Total Bilirubin AST ALT Alkaline Phosphatase Troponin I 0.48 H 0.47 H Total Protein Albumin 05/09/18 05/09/18 05/09/18 16:43 22:02 22:17 WBC RBC Hgb Hct MCV MCH MCHC RDW Plt Count MPV Neut % (Auto) Lymph % (Auto) [place] % (Auto) Eos % (Auto) Baso % (Auto) Neut # (Auto) Lymph # (Auto) [place] # (Auto) Eos # (Auto) Baso # (Auto) WBC Differential Differential Comment APTT 34.2 H Sodium Potassium Chloride Carbon Dioxide Anion Gap BUN Creatinine Estimated GFR POC Glucose 335 H 131 H Random Glucose Calcium Total Bilirubin AST ALT Alkaline Phosphatase Troponin I Total Protein Albumin 05/10/18 05/10/18 05/10/18 05:47 05:47 08:03 WBC 9.5 RBC 4.46 L Hgb 12.8 L Hct 39.4 MCV 88.4 MCH 28.8 MCHC 32.6 RDW 15.9 Plt Count 165 MPV 8.5 Neut % (Auto) 73.0 H Lymph % (Auto) 17.4 [place] % (Auto) 6.4 Eos % (Auto) 2.4 Baso % (Auto) 0.8 Neut # (Auto) 6.9 Lymph # (Auto) 1.7 [place] # (Auto) 0.6 Eos # (Auto) 0.2 Baso # (Auto) 0.1 WBC Differential . Differential Comment Auto diff final APTT Sodium 138 Potassium 3.7 Chloride 103 Carbon Dioxide 30.0 Anion Gap 5 BUN 10 Creatinine 1.04 Estimated GFR Greater than 89 POC Glucose 124 H Random Glucose 137 H Calcium 8.5 Total Bilirubin 1.0 AST 14 L ALT 24 Alkaline Phosphatase 111 Troponin I Total Protein 7.6 Albumin 3.2 L Assessment and Plan - Plan [id number] male with known CAD presenting with Chest pain rule out acute coronary syndrome with underlying CAD history of stents placed in the past Cardiomyopathy EF of known EF of 20-25% from February 2018 HYpertension- better - 130/80 Follow troponin levels Currently with no acute EKG changes Cardiology consulted- no further work up - reinforce stop cocaine use Continue on aspirin + Plavix, statins, amlodipine, Coreg, restart home meds- Enalapril 20 mg bd 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 DC home today OP ff up with PCP- Dr. soto= d/w him and reinforce OP ff up with cardiology
[2018-05-10 10:19] VITALS: PULSE 72
--- NOTE | 2018-05-10 10:29 | P.PNCA ---
Subjective Interval history: Patient denies any CP, pressure, palpitations, dizziness, edema or SOB. Patient states he is feeling better. Medications and Allergies Allergies Allergy/AdvReac Type Severity Reaction Status Date / Time No Known Allergies Allergy Verified 05/09/18 02:27 Active Medications: Active Medications Acetaminophen (Tylenol) 650 mg PO Q4H PRN PRN Reason: Temp > 100.4 Al Hydroxide/Mg Hydroxide (Milk Of Magnesia Liq) 30 ml PO Q12H PRN PRN Reason: Mild Constipation Albuterol (Duoneb Neb (Bharti)) 1 ampul NEB Q6HR ALT NEB [facility] Last Admin: 05/10/18 07:41 Dose: 1 ampul Amlodipine Besylate (Norvasc) 5 mg PO DAILY [facility] Last Admin: 05/10/18 08:05 Dose: 5 mg Aspirin (Ecotrin) 81 mg PO DAILY [facility] Last Admin: 05/10/18 08:05 Dose: 81 mg Atorvastatin Calcium (Lipitor) 40 mg PO HS [facility] Last Admin: 05/09/18 21:11 Dose: 40 mg Bisacodyl (Dulcolax Supp) 10 mg RECTAL DAILY PRN PRN Reason: SEVERE CONSITIPATION Carvedilol (Coreg) 25 mg PO BID [facility] Last Admin: 05/10/18 08:05 Dose: 25 mg Clopidogrel Bisulfate (Plavix) 75 mg PO DAILY [facility] Last Admin: 05/10/18 08:05 Dose: 75 mg Dextrose (D50w Vial) 50 ml IV.PUSH UNSCH PRN PRN Reason: PER HYPOGLYCEMIA PROTOCOL Famotidine (Pepcid) 20 mg PO BID [facility] Last Admin: 05/10/18 08:05 Dose: 20 mg Furosemide (Lasix) 40 mg PO BID [facility] Last Admin: 05/10/18 08:04 Dose: 40 mg Glipizide (Glucotrol) 5 mg PO BID@0800,1700 [facility] Last Admin: 05/10/18 08:04 Dose: 5 mg Glucagon (Glucagon Inj) 1 mg OTHER PRN PRN PRN Reason: for Hypoglycemia Protocol Nitroglycerin/Dextrose (Nitroglycerin Drip Premix) 50 mg in 250 mls @ 0 mls/hr IV.CONT TITRATE PRN; Protocol PRN Reason: Per Protocol Last Titration: 05/09/18 11:00 Dose: 0 mcg/min, 0 mls/hr Sodium Chloride (Ns Inj) 1,000 mls @ 60 mls/hr IV.CONT .[id number] [facility] Last Admin: 05/10/18 02:00 Dose: 60 mls/hr Insulin Human Regular (Novolin R Correctional Sugar Inj) 0 units SQ ACHS [facility]; Protocol Last Admin: 05/10/18 08:05 Dose: Not Given Isosorbide Mononitrate (Imdur) 30 mg PO DAILY@0700 [facility] Last Admin: 05/10/18 07:21 Dose: 30 mg Lactulose (Lactulose Liq) 30 ml PO DAILY PRN PRN Reason: SEVERE CONSITIPATION Ondansetron HCl (Zofran Inj) 4 mg IV.PUSH Q6H PRN PRN Reason: NAUSEA OR VOMITING Sennosides (Senokot) 17.2 mg PO Q12H PRN PRN Reason: Moderate Constipation Sodium Chloride (Ns Flush) 2 ml IV.FLUSH UNSCH PRN PRN Reason: FLUSH AFTER USING IV ACCESS Sodium Chloride (Ns Flush) 2 ml IV.FLUSH BID [facility] Last Admin: 05/10/18 08:05 Dose: Not Given Sodium Chloride (Ns Flush) 2 ml IV.FLUSH PRN PRN PRN Reason: FLUSH AFTER USING IV ACCESS Physical Exam Vital signs: Vital Signs 05/09/18 11:00 05/09/18 12:00 05/09/18 13:00 Temperature 98.6 F Pulse Rate 72 66 76 Respiratory Rate 20 Blood Pressure 126/73 Pulse Oximetry 91 L 05/09/18 13:25 05/09/18 13:29 05/09/18 14:00 Temperature Pulse Rate 79 76 Respiratory Rate 16 Blood Pressure Pulse Oximetry 96 05/09/18 15:00 05/09/18 16:00 05/09/18 17:00 Temperature 98.4 F Pulse Rate 69 77 80 Respiratory Rate 20 Blood Pressure 141/82 H Pulse Oximetry 97 05/09/18 18:00 05/09/18 19:00 05/09/18 19:47 Temperature Pulse Rate 72 88 73 Respiratory Rate 17 Blood Pressure Pulse Oximetry 05/09/18 19:48 05/09/18 20:00 05/09/18 21:00 Temperature 98.3 F Pulse Rate 72 62 Respiratory Rate 16 Blood Pressure 141/82 H Pulse Oximetry 94 L 95 05/09/18 22:00 05/09/18 23:00 05/10/18 00:00 Temperature 98.3 F Pulse Rate 62 88 64 Respiratory Rate 14 Blood Pressure 114/80 Pulse Oximetry 95 05/10/18 01:00 05/10/18 02:00 05/10/18 03:00 Temperature Pulse Rate 68 58 L 69 Respiratory Rate Blood Pressure Pulse Oximetry 05/10/18 04:00 05/10/18 05:00 05/10/18 07:00 Temperature 98.2 F Pulse Rate 68 70 77 Respiratory Rate 14 Blood Pressure 138/96 H Pulse Oximetry 91 L 05/10/18 07:41 05/10/18 08:00 05/10/18 09:00 Temperature 97.7 F Pulse Rate 76 70 56 L Respiratory Rate 16 20 Blood Pressure 134/80 Pulse Oximetry 96 99 05/10/18 10:00 Temperature Pulse Rate 72 Respiratory Rate Blood Pressure Pulse Oximetry Intake & Output 05/09/18 05/10/18 05/10/18 18:59 06:59 18:59 Intake Total 960 / 960 1250 / 1250 Output Total 1150 / 1150 Balance -190 / -190 1250 / 1250 Weight 100.7 kg Intake: IV 1250 / 1250 Heparin/D5W 25,000 U/250 mL 25, 250 / 250 000 unit In 250 ml @ Per Protocol IV.CONT TITRATE PRN Rx #:[id number] NS Inj 1,000 ML @ 60 mls/hr IV. 1000 / 1000 CONT .[id number] [facility] Rx#:[id number] Oral 960 / 960 Output: Urine 1150 / 1150 Other: Date of Last Bowel Movement 05/08/18 05/08/18 - Constitutional no acute distress - Routine HEENT Exam Head: Present: normocephalic Eye: Present: PERRL ENT: Present: mucous membranes moist - Routine Neck Exam Present: full ROM - Routine Respiratory Exam Present: CTA bilaterally - Routine Cardiovascular Exam Present: S1, S2. Absent: murmur, gallop, rubs - Routine Abdominal Exam Present: normoactive bowel sounds - Routine Extremities Exam Present: full ROM, pulses intact, normal capillary refill. Absent: cyanosis, clubbing, edema - Routine Skin Exam Present: intact - Routine Neurological Exam Present: oriented X3 - Detailed Neurological Exam: Coma Scale Eye Opening: Spontaneous Verbal Response: Oriented Motor Response: Obey commands Joseluis Coma Scale Total: 15 - Routine Psychiatric Exam Present: normal affect Results 05/10/18 05:47 05/10/18 05:47 Cardiac Enzymes 05/09/18 05/09/18 05/09/18 Range/Units 02:57 02:57 09:55 AST 16 (15-37) U/L CK-MB (CK-2) 2.2 (0.5-3.6) ng/mL Troponin I 0.53 H 0.49 H (0.02-0.05) ng/mL B-Natriuretic Peptide 175 H (0-100) pg/mL 05/09/18 05/09/18 05/10/18 Range/Units 13:17 16:15 05:47 AST 14 L (15-37) U/L CK-MB (CK-2) (0.5-3.6) ng/mL Troponin I 0.48 H 0.47 H (0.02-0.05) ng/mL B-Natriuretic Peptide (0-100) pg/mL Coagulation 05/09/18 05/09/18 05/09/18 Range/Units 02:57 02:57 09:55 PT 10.8 (9.8-11.6) sec APTT 31.3 40.6 H D (23.4-31.7) sec B-Natriuretic Peptide 175 H (0-100) pg/mL 05/09/18 05/09/18 Range/Units 16:15 22:17 PT (9.8-11.6) sec APTT 35.1 H 34.2 H (23.4-31.7) sec B-Natriuretic Peptide (0-100) pg/mL CBC 05/09/18 05/10/18 Range/Units 02:57 05:47 WBC 13.3 H 9.5 (4.0-11.0) th/mm3 RBC 4.40 L 4.46 L (4.50-5.90) mil/mm3 Hgb 12.6 L 12.8 L (13.0-17.0) gm/dL Hct 38.4 L 39.4 (39.0-51.0) % Plt Count 180 165 (150-450) th/mm3 Neut # (Auto) 11.0 H 6.9 (1.8-7.7) th/mm3 Lymph # (Auto) 1.6 1.7 (1.0-4.8) th/mm3 [place] # (Auto) 0.6 0.6 (0.0-0.9) th/mm3 Eos # (Auto) 0.1 0.2 (0.0-0.4) th/mm3 Baso # (Auto) 0.1 0.1 (0.0-0.2) th/mm3 Comprehensive Metabolic Panel 05/09/18 05/10/18 Range/Units 02:57 05:47 Sodium 141 138 (136-145) meq/L Potassium 3.4 L 3.7 (3.5-5.1) meq/L Chloride 104 103 (98-107) meq/L Carbon Dioxide 30.0 30.0 (21.0-32.0) meq/L BUN 11 10 (7-18) mg/dL Creatinine 1.17 1.04 (0.60-1.30) mg/dL Calcium 8.1 L 8.5 (8.5-10.1) mg/dL AST 16 14 L (15-37) U/L ALT 25 24 (12-78) U/L Alkaline Phosphatase 118 H 111 (45-117) U/L Total Protein 7.9 7.6 (6.4-8.2) g/dL Albumin 3.5 3.2 L (3.4-5.0) g/dL Intake and Output 05/09/18 05/10/18 05/10/18 22:59 06:59 14:59 Intake Total 960 / 960 1250 / 1250 Output Total 1150 / 1150 Balance -190 / -190 1250 / 1250 Intake: IV 1250 / 1250 Heparin/D5W 25,000 U/250 mL 25, 250 / 250 000 unit In 250 ml @ Per Protocol IV.CONT TITRATE PRN Rx #:[id number] NS Inj 1,000 ML @ 60 mls/hr IV. 1000 / 1000 CONT .[id number] [facility]ARTI Rx#:[id number] Oral 960 / 960 Output: Urine 1150 / 1150 Other: Date of Last Bowel Movement 05/08/18 05/08/18 Weight 100.7 kg - Imaging and Cardiology Imaging: Impressions Chest X-Ray 05/09/18 02:31 CONCLUSION: 1. No significant interval change when compared to the prior study of 2017. Mild hazy opacity at the right lung base likely represents scarring or chronic atelectasis. 2. Mild chronic cardiac silhouette enlargement. Assessment and Plan - Assessment (1) Non-ST elevated myocardial infarction (non-STEMI) Code(s): I21.4 - Non-ST elevation (NSTEMI) myocardial infarction Status: Acute (2) Unstable angina pectoris Code(s): I20.0 - Unstable angina Status: Acute (3) Acute exacerbation of CHF (congestive heart failure) Code(s): I50.9 - Heart failure, unspecified Status: Acute - Plan Patient strongly encouraged to stop using cocaine, risk of health complications with continuous cocaine use discussed with the patient. We will continue with current cardiac treatment plan and adjust as needed. We recommend conservative medical management. Patient is stable from a cardiology standpoint at this time and can be discharged home. The patient was seen and evaluated by Dr. Woods who participated in care, management and decision making. - Attending Attestation Patient seen and examined. I reviewed and agree with the evaluation and plan as presented. Recent event likely related to coronary spasm due to cocaine use. No new cardiac issues. DC home as planned. Continue current program post recent stent placement.
== END 2018-05-10 11:37 | disposition home or self-care (01) ==
LOC: NEPC 02:19 → NEDA 04:29 → HCIS 06:11
PROVIDERS: ADMIT Internal Medicine; ATTEND Internal Medicine